=== PATIENT | female | born 1970 | race Caucasian/White ===

== ENCOUNTER → 2023-08-27 | Outpatient (CLI) | payer BC, SELFPAY ==
[2023-08-27 12:25] LABS: Absolute Lymphocyte Count 2.03 X10^3/uL (0.83-4.51); Absolute Neutrophil Count 2.4 X10^3/uL (2.0-7.7); Basophil# 0.05 X10^3/uL; Eosinophil# 0.12 X10^3/uL; Eosinophils% 2.4 % (0-5); Hemoglobin 14.1 g/dL (12.0-15.0); Lymphocyte # 2.03 X10^3/ul (0.83-4.51); Lymphocyte % 40.4 % (19-41); Mean Corp Hgb Conc 32.8 g/dL (32-36); Mean Corpuscular Hgb 29.3 pg (27.0-32.0); Mean Corpuscular Volume 89.2 fL (81-99); Monocyte# 0.41 X10^3/uL; Monocyte% 8.2 % (0-10); NRBC Flagged by Analyzer 0 % (0-5); Neutrophil % 47.8 % (47-70); Platelet Count 292 K/mm3 (150-450); RBC Distribution Width CV 12.4 % (11.6-14.6); RBC Distribution Width SD 40.5 fl (35.1-43.9); Red Blood Count 4.82 M/mm3 (4.2-5.4)
[2023-08-27 12:50] LABS: Vitamin B12 413 pg/mL (211-911); Vitamin D,25 Hydroxy 16.9 ng/mL
[2023-08-27 15:26] LABS: Hemoglobin A1c 5.5 % (3.8-5.6)
[2023-08-27 15:30] LABS: ALB/GLOB Ratio 1.1 RATIO (0.9-2.4); AST(SGOT) 25 U/L (15-37); Alanine Aminotransfer ALT/SGPT 55 U/L (13-56); Albumin, Serum 4.1 g/dL (3.2-5.0); Alkaline Phosphatase 73 U/L (45-117); Anion Gap 6 (5-15); BUN 14 mg/dL (7-18); BUN/Creat Ratio 16.5 RATIO (10-20); Calcium,Total 9.3 mg/dL (8.5-10.1); Chloride 106 mmol/L (98-107); Cholesterol 174 mg/dL (200); Creatinine, Serum 0.85 mg/dL (0.55-1.02); EST Glomerular Filtration Rate 75 mL/min (>60); Est Glom Filt Rate - Afr Amer 91 mL/min (>60); Globulin 3.7 g/dL (2.2-4.2); Glucose 103 mg/dL (74-106); High Density Lipoprotein 52 mg/dL; Protein, Total 7.8 g/dL (6.4-8.2); Sodium Level 138 mmol/L (136-145); Thyroid Stim Hormone (TSH) 2.38 uIU/mL (0.358-3.74); Triglycerides 118 mg/dL; Very Low Density Lipoprotein 24 mg/dL (5-40)
== END | disposition home or self-care (01) ==
LOC: BIMLAB 08:24
PROVIDERS: PCP Internal Medicine; Referring Provider Internal Medicine; Visit Provider Internal Medicine
DX: I44.2 Atrioventricular block, complete (principal); F32.1 Major depressive disorder, single episode, moderate; Z13.6 Encounter for screening for cardiovascular disorders; E66.9 Obesity, unspecified
CPT/HCPCS: 36415; 80053; 80061; 82306; 82607; 83036; 84443; 85025

== ENCOUNTER → 2023-09-18 | Outpatient (CLI) | payer BC, SELFPAY ==
--- NOTE | 2023-09-18 14:31 | BI_ITS ---
MAMMOGRAPHY - BILATERAL SCREENING REASON FOR EXAM: Female, 53 years old. Routine annual screening examination. PERTINENT HISTORY: Mother with breast cancer. TECHNIQUE: Digital bilateral breast naresh (3D mammographic acquisition) in the CC and MLO projections. 2-D mediolateral oblique (MLO) and craniocaudad (CC) views of both breasts were obtained. CAD: Full Field Digital Mammography with Computer Added Detection was performed. COMPARISON: Comparison is made with prior outside examination dated June 06, 2020. FINDINGS: Breast Composition: The breasts are heterogeneously dense, which may obscure small masses. There are no dominant masses or suspicious calcifications. A pacemaker battery pack is seen in the left axilla. Stable benign-appearing right axillary lymph nodes. No other significant abnormalities are identified. There has been no significant change since the prior study. BI/SCRN MAMM (CAD)W/NARESH BILAT IMPRESSION: Stable bilateral screening mammogram. Yearly follow-up mammogram recommended. (A) ASSESSMENT CATEGORY: BIRADS Category 2: Benign. A letter regarding these results will be sent to the patient by the facility within 30 days. Approximately 10% of breast cancers are not detected by mammography. A normal mammogram should not delay biopsy of a clinically suspicious abnormality. [id number] Electronically Signed: Dirk Hernandez MD at 10:44 EDT ,
== END | disposition home or self-care (01) ==
LOC: OPBI 14:30
PROVIDERS: PCP Internal Medicine; Referring Provider Internal Medicine; Visit Provider Internal Medicine
DX: Z12.31 Encounter for screening mammogram for malignant neoplasm of breast (principal); Z85.3 Personal history of malignant neoplasm of breast
CPT/HCPCS: 77063; 77067

== ENCOUNTER → 2024-02-01 | Outpatient (CLI) | payer BC, SELFPAY ==
[2024-02-01 12:50] LABS: Vitamin D,25 Hydroxy 20.9 ng/mL
[2024-02-01 13:11] LABS: Anion Gap 6 (5-15); BUN 12 mg/dL (7-18); BUN/Creat Ratio 15.5 RATIO (10-20); Calcium,Total 9.3 mg/dL (8.5-10.1); Chloride 109 mmol/L (98-107); Creatinine, Serum 0.78 mg/dL (0.55-1.02); EST Glomerular Filtration Rate 83 mL/min (>60); Est Glom Filt Rate - Afr Amer 100 mL/min (>60); Glucose 90 mg/dL (74-106); Potassium 3.6 mmol/L (3.5-5.1); Sodium Level 138 mmol/L (136-145)
== END | disposition home or self-care (01) ==
LOC: BIMLAB 08:59
PROVIDERS: PCP Internal Medicine; Visit Provider Internal Medicine
DX: E55.9 Vitamin D deficiency, unspecified (principal); E66.9 Obesity, unspecified
CPT/HCPCS: 36415; 80048; 82306

== ENCOUNTER → 2024-08-05 | Outpatient (CLI) | payer BC, SELFPAY ==
--- NOTE | 2024-08-05 12:44 | ECHOD_ITS ---
Reason For Study Reason For Study: DYSPNEA/SOB, PACERMAKER Procedure This was a 2D Doppler, Color Flow transthoracic echocardiogram. Exam performed in department. Left Ventricle Normal LV size. The left ventricular ejection fraction is 55 %. Stage 1 diastolic dysfunction. No regional wall motion abnormalities noted. Right Ventricle Normal RV size. ICD or pacer leads identified within the right ventricle. Normal systolic function. Atria Normal left atrium. Normal right atrium. Mitral Valve Normal mitral valve. Tricuspid Valve Normal tricuspid valve. Mild tricuspid valve insufficiency. Pulmonary artery systolic pressure is 20 mmHg. Pulmonic Valve Normal pulmonic valve. Great Vessels Normal aortic root. The pulmonary artery is normal size. Inferior vena cava collapse with respiration. Pericardium/Pleural No pericardial effusion. MMode/2D Measurements & Calculations LVIDd: 4.3 cm IVSd: 1.0 cm Ao root diam: 2.7 cm LVIDs: 2.7 cm LVPWd: 1.0 cm RVDd: 2.4 cm FS: 38.6 % LAV(MOD-bp): 34.9 ml LVAd ap4: 24.3 cm2 LVAd ap2: 22.2 cm2 LAV(MOD-bp) Indexed: 20.6 ml/m2 LVLd ap4: 7.4 cm LVLd ap2: 7.5 cm LAV(MOD-sp2): 34.0 ml EDV(MOD-sp4): 68.3 ml EDV(MOD-sp2): 55.5 ml LAV(MOD-sp4): 35.5 ml EDV(sp4-el): 67.9 ml EDV(sp2-el): 55.5 ml LVAs ap4: 15.3 cm2 LVAs ap2: 13.6 cm2 LVLs ap4: 6.6 cm LVLs ap2: 6.5 cm ESV(MOD-sp4): 29.6 ml ESV(MOD-sp2): 23.0 ml ESV(sp4-el): 30.1 ml ESV(sp2-el): 24.3 ml EF(MOD-sp4): 56.7 % EF(MOD-sp2): 58.6 % EF(sp4-el): 55.6 % SV(MOD-sp4): 38.8 ml SV(MOD-sp2): 32.5 ml SV(sp4-el): 37.8 ml SI(MOD-sp4): 22.9 ml/m2 SI(MOD-sp2): 19.2 ml/m2 LA A4 area: 14.3 cm2 LA dimension(2D): 3.8 cm RA A4 area: 12.5 cm2 TAPSE: 1.9 cm Time Measurements MV dec time: 0.20 sec Doppler Measurements & Calculations MV E max coleman: 63.9 cm/sec Lat Peak E' Coleman: 8.2 cm/sec Med Peak E' Coleman: 8.6 cm/sec MV A max coleman: 76.3 cm/sec E/E' lat: 7.8 E/E' med: 7.4 MV E/A: 0.84 Ao V2 max: 127.1 cm/sec LV V1 max: 92.7 cm/sec PA V2 max: 87.1 cm/sec Ao max P.5 mmHg LV V1 max P.4 mmHg PA V2 mean: 61.3 cm/sec Ao V2 mean: 86.2 cm/sec LV V1 mean P.9 mmHg Ao mean P.4 mmHg LV V1 mean: 64.9 cm/sec Ao V2 VTI: 22.4 cm LV V1 VTI: 16.4 cm AV (velocity ratio): 0.73 TR max coleman: 209.8 cm/sec TR max P.6 mmHg ECHO/Echo Complete Interpretation Summary Normal LV size. The left ventricular ejection fraction is 55 %. Stage 1 diastolic dysfunction. Ordering Physician: Margie Murillo Referring Physician: Keshia Nettles; Dimas Mcmahon Performed By: Tera, Lori, RDCS, RVT
== END | disposition home or self-care (01) ==
LOC: CVS 12:43
PROVIDERS: PCP Internal Medicine; Referring Provider Physician Assistant Medical; Visit Provider Physician Assistant Medical
DX: Z95.0 Presence of cardiac pacemaker (principal); R06.02 Shortness of breath
CPT/HCPCS: 93306

== ENCOUNTER 2024-09-12 06:11 | Day surgery (SDC) | payer BC, SELFPAY ==
--- NOTE | 2024-09-09 10:30 | PAT.ANE_ITS ---
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 When Was Last Pacemaker Check QUESTION #4 FULL TEXT: You/Your Family Experience fever (hyperthermia) with Anesthesia Last Oral Intake Last Oral intake: Last Oral Intake NPO since Meds taken in AM with sips of water? Meds patient instructed to take am of surgery PONV PONV - guide setter: PONV - guide setter Female Yes 09/09/24 09:23 HX of Motion Sickness Yes 09/09/24 09:23 HX of N/V After Surgery No 09/09/24 09:23 Non-Smoker Yes 09/09/24 09:23 Duration of Surgery greater No 09/09/24 09:23 than 60 minutes Number of Risk Factors 3 09/09/24 09:23 PONV Score Moderate Risk 09/09/24 09:23 Height & Weight Height & Weight: Anesthesia: Height & Weight Height 5 ft 2 in 08/31/24 13:02 Respiratory Assessment Respiratory Assessment - guide setter: Respiratory Tract Infection Hx - guide setter Hx Respiratory Tract Infection No 09/09/24 09:23 STOP Sleep Apnea STOP Sleep Apnea - guide setter: STOP Sleep Apnea - guide setter Hx Hypertension No 09/09/24 09:23 Hx Sleep Apnea No 09/09/24 09:23 CPAP BIPAP Do you snore loudly (louder No 09/09/24 09:23 than talking or can be heard Do you often feel tired/ No 09/09/24 09:23 fatigued/ sleepy during daytime? Has anyone observed you stop No 09/09/24 09:23 breathing during sleep? STOP Results Negative 09/09/24 09:23 QUESTION #5 FULL TEXT : Do you snore loudly (louder than talking or can be heard through closed doors)? 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 Specify any problems Hx of Preganancy in last 3 No 09/09/24 09:23 Months Nurse Filling Out Transfusion DSCHRIBER 09/09/24 09:23 & Questions: Date: 09/09/24 09/09/24 09:23 Time: 09/09/24 09:23 Patient unable to answer at this time (ie. confused, unrespo /Reproduction History /Reproductive History - guide setter: /Reproductive Hx- guide setter Hx Now No 09/09/24 09:23 Gestational Age (in weeks): EDC: Hx Hx Para Hx Section SAB No 09/09/24 09:23 PFS Medical History (Updated 09/09/24 @ 09:29 by Marcela Fraga) Wears glasses Non-smoker History of echocardiogram Cardiology follow-up encounter Anxiety Presence of permanent cardiac pacemaker SSS (sick sinus syndrome) Third degree heart block Obesity Hypothyroid Dysfunctional uterine bleeding Depression Home Medications ?Medication ?Instructions ?Recorded ?Last Taken ?Type multivitamin 1 tab PO QDAY 05/02/24 Unkno wn History paroxetine HCl 30 mg tablet 30 mg PO QHS 09/09/24 Unkn own History tirzepatide (weight loss) 7.5 7.5 mg subcut WE 5 08/31/24 History mg/0.5 mL subcutaneous pen injector Allergy/AdvReac Type Severity Reaction Status Date / Time No Known Allergies Allergy Verified 09/09/24 09:22 Family History Mother Breast cancer Hypertension Father Dementia Brother Diabetes type 1 Surgical History (Updated 09/09/24 @ 09:29 by Marcela Fraga) History of hysterectomy Social History adopted: No household members: spouse number of children: 2 current occupational status: employed 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 Electronic ventricular pacemaker. Echo (EF%) pertinent findings: August 05, 2024. EF of 55%. PASP is 20 mmHg. No aortic stenosis is noted. Consult pertinent findings: July 12, 2024. Hollie CARRILLO. 1. Third-degree heart block?acute-patient has a pacemaker since 2019. She is pacemaker dependent. No evidence of congestive heart failure and LV function is normal. No significant valvular disease. 2. Permanent cardiac pacemaker?acute-placed October 27, 2017. Patient is totally pacer dependent secondary to complete heart block. With an escape rhythm at 40 bpm. Today she is totally ventricular paced at 72 bpm. She is asymptomatic. Her [id number] score is 0. 3. There is question of infiltrative cardiomyopathy that led to her AV block. Will obtain an echo to reassess LV function. (See above) Recommendation Anesthesia Recommendation Anesthesia recommendation: OPTIMIZED for anesthesia
--- NOTE | 2024-09-09 10:30 | PAT.ANE_ITS ---
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 When Was Last Pacemaker Check QUESTION #4 FULL TEXT: You/Your Family Experience fever (hyperthermia) with Anesthesia Last Oral Intake Last Oral intake: Last Oral Intake NPO since Meds taken in AM with sips of water? Meds patient instructed to take am of surgery PONV PONV - catalytic converter operator: PONV - catalytic converter operator Female Yes 09/09/24 09:23 HX of Motion Sickness Yes 09/09/24 09:23 HX of N/V After Surgery No 09/09/24 09:23 Non-Smoker Yes 09/09/24 09:23 Duration of Surgery greater No 09/09/24 09:23 than 60 minutes Number of Risk Factors 3 09/09/24 09:23 PONV Score Moderate Risk 09/09/24 09:23 Height & Weight Height & Weight: Anesthesia: Height & Weight Height 5 ft 2 in 08/31/24 13:02 Respiratory Assessment Respiratory Assessment - catalytic converter operator: Respiratory Tract Infection Hx - catalytic converter operator Hx Respiratory Tract Infection No 09/09/24 09:23 STOP Sleep Apnea STOP Sleep Apnea - catalytic converter operator: STOP Sleep Apnea - catalytic converter operator Hx Hypertension No 09/09/24 09:23 Hx Sleep Apnea No 09/09/24 09:23 CPAP BIPAP Do you snore loudly (louder No 09/09/24 09:23 than talking or can be heard Do you often feel tired/ No 09/09/24 09:23 fatigued/ sleepy during daytime? Has anyone observed you stop No 09/09/24 09:23 breathing during sleep? STOP Results Negative 09/09/24 09:23 QUESTION #5 FULL TEXT : Do you snore loudly (louder than talking or can be heard through closed doors)? 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 Specify any problems Hx of Preganancy in last 3 No 09/09/24 09:23 Months Nurse Filling Out Transfusion DSCHRIBER 09/09/24 09:23 & Questions: Date: 09/09/24 09/09/24 09:23 Time: 09/09/24 09:23 Patient unable to answer at this time (ie. confused, unrespo /Reproduction History /Reproductive History - catalytic converter operator: /Reproductive Hx- catalytic converter operator Hx Now No 09/09/24 09:23 Gestational Age (in weeks): EDC: Hx Hx Para Hx Section SAB No 09/09/24 09:23 PFS Medical History (Updated 09/09/24 @ 09:29 by Marcela Fraga) Wears glasses Non-smoker History of echocardiogram Cardiology follow-up encounter Anxiety Presence of permanent cardiac pacemaker SSS (sick sinus syndrome) Third degree heart block Obesity Hypothyroid Dysfunctional uterine bleeding Depression Home Medications ?Medication ?Instructions ?Recorded ?Last Taken ?Type multivitamin 1 tab PO QDAY 05/02/24 Unkno wn History paroxetine HCl 30 mg tablet 30 mg PO QHS 09/09/24 Unkn own History tirzepatide (weight loss) 7.5 7.5 mg subcut WE 5 08/31/24 History mg/0.5 mL subcutaneous pen injector Allergy/AdvReac Type Severity Reaction Status Date / Time No Known Allergies Allergy Verified 09/09/24 09:22 Family History Mother Breast cancer Hypertension Father Dementia Brother Diabetes type 1 Surgical History (Updated 09/09/24 @ 09:29 by Marcela Fraga) History of hysterectomy Social History adopted: No household members: spouse number of children: 2 current occupational status: employed 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 Electronic ventricular pacemaker. Echo (EF%) pertinent findings: August 05, 2024. EF of 55%. PASP is 20 mmHg. No aortic stenosis is noted. Consult pertinent findings: July 12, 2024. Hollie CARRILLO. 1. Third-degree heart block?acute-patient has a pacemaker since 2019. She is pacemaker dependent. No evidence of congestive heart failure and LV function is normal. No significant valvular disease. 2. Permanent cardiac pacemaker?acute-placed October 27, 2017. Patient is totally pacer dependent secondary to complete heart block. With an escape rhythm at 40 bpm. Today she is totally ventricular paced at 72 bpm. She is asymptomatic. Her [id number] score is 0. 3. There is question of infiltrative cardiomyopathy that led to her AV block. Will obtain an echo to reassess LV function. (See above) Recommendation Anesthesia Recommendation Anesthesia recommendation: OPTIMIZED for anesthesia
[2024-09-12] VITALS (8 sets, daily range): BP systolic 85–101; BP diastolic 49–70; PULSE 75–95; RESP 16–20; TEMP 36.3–37.6; O2SAT 99–100; BMI 26.6
--- OUTSIDE RECORDS SUMMARY | 2024-09-12 06:14 | XMS RPT_ITS | CCD ---
Author Organization [facility] Care Team Providers Care Sap Crm Developer Name Role Phone Hemalatha Bernal Unavailable Unavai lable Tito-Bressi, Hemalatha Unavailable Unavai lable TitoObedi, Hemalatha Unavailable Unavailable Unavailable Meir, Dr. Gabriel Bell Attending Unavail able Meir, Dr. Gabriel Bell Referring Unavail able Dolores, Dr. Penny Primary Care Un available Thal, Dr. Gabriel Bell Referring Unavail able Dolores, Dr. Penny Primary Care Un available Thal, Dr. Gabriel Bell Attending Unavail able Meir, Dr. Gabriel Bell Attending Unavail able Meir, Dr. Gabriel Bell Referring Unavail able Dolores, Dr. Penny Primary Care Un available Dr. Keshia Nettles MD Primary Care Provider [phone] Dr. Keshia Nettles MD Attending Provider Dr. Keshia Nettles MD Referring Provider Dr. Doe Bah MD Attending Provider [phone] Margie Delgado Attending Provider [phone] Margie Delgado Referring Provider [phone] Dr. Keshia Nettles MD Primary Care Provider [phone] Dr. Keshia Nettles MD Referring Provider Dr. Keshia Nettles MD Attending Provider Lukas KEY, Dr. Paige Attending Provider Lagunitas, Keshia Primary Care Unavailable Olvin, [place] Attending Unavailable Tho, Keshia Primary Care Unavailable Olvin, [place] Attending Unavailable [place], Keshia Primary Care Unavailable [place], Keshia Attending Unavailable Tho, Keshia Referring Unavailable Tho, Keshia Primary Care Unavailable Olvin, [place] Attending Unavailable Olvin, [place] Attending Unavailable Tho, Keshia Primary Care Unavailable [place], Keshia Attending Unavailable [place], Keshia Primary Care Unavailable Tho, Keshia Referring Unavailable Tho, Keshia Primary Care Unavailable Olvin, [place] Attending Unavailable [place], Keshia Primary Care Unavailable [place], Keshia Referring Unavailable Margie Delgado Attending Unavail able Tho, Keshia Referring Unavailable [place], Keshia Attending Unavailable [place], Keshia Primary Care Unavailable [place], Keshia Primary Care Unavailable Olvin, Doe Attending Unavailable Tho, Keshia Referring Unavailable Tho, Keshia Primary Care Unavailable Margie Delgado Referring Unavail able Margie Delgado Attending Unavail able Grecia Gaytan Attending Unavailable Tho, Keshia Referring Unavailable [place], Keshia Primary Care Unavailable Grecia Gaytan Attending Unavailable Tho, Keshia Referring Unavailable Tho, Keshia Primary Care Unavailable Tho, Keshia Attending Unavailable [place], Keshia Primary Care Unavailable [place], Keshia Referring Unavailable [place], Keshia Attending Unavailable [place], Keshia Primary Care Unavailable [place], Keshia Attending Unavailable [place], Keshia Primary Care Unavailable [place], Keshia Referring Unavailable [place], Keshia Primary Care Unavailable Olvin, Doe Attending Unavailable [place], Keshia Referring Unavailable Kishan Smith Attending Unavailable Tho, Keshia Primary Care Unavailable Amita Schwarz Attending Unavailable Tho, Keshia Referring Unavailable [place], Keshia Primary Care Unavailable Olvin, Doe Attending Unavailable [place], Keshia Primary Care Unavailable Tho, Keshia Primary Care Unavailable Olvin, [place] Attending Unavailable Medications Current Medications Medication Drug Class(es) Dates Sig (Normalized) Sig (Original) Multivitamin tablet (4 sources) Start: 05-02-2024 Multivitamin tablet Active 1 {tbl} PO daily May 02, 2024 1:00am Tirzepatide (Weight Loss) (3 sources) Start: 08-22-2024 Tirzepatide (Weight Loss) 7.5 mg/0.5 mL pen injector Active 7.5 mg SC EVERY WEEK August 22, 2024 8:18am Completed/Discontinued Medications Medication Drug Class(es) Dates Sig (Normalized) Sig (Original) amoxicillin 500 mg oral tablet (4 sources) Penicillin-class Antibacterial Start: 10-12-2023 End: 11-06-2023 take 1 tablet by mouth three times daily Amoxicillin 500 mg tablet Discontinued 500 mg PO THREE TIMES A DAY October 12, 2023 12:00am November 06, 2023 2:01pm PARoxetine hydrochloride 30 mg oral tablet (20 sources) Serotonin Reuptake Inhibitor Start: 08-25-2023 End: 08-22-2024 take 1 tablet by mouth once daily Paroxetine Hcl 30 mg tablet Discontinued 30 mg PO DAILY March 21, 2024 10:50am August 22, 2024 8:18am Start: 04-21-2023 End: 08-25-2023 take 1 tablet by mouth once daily Paroxetine Hcl (Paxil) 20 mg tablet Discontinued 20 mg PO DAILY April 21, 2023 1:00am August 25, 2023 1:55pm Start: 07-13-2015 take 1 tablet by roldan once daily PARoxetine HCl - 20 MG Oral Tablet Take 1 tablet daily Quantity: 90 Refills: 1 Ordered: 22-Feb-2021 Hemalatha Bernal DO Start : 13-Jul-2015 Active Tirzepatide (Weight Loss) (20 sources) Start: 07-14-2024 End: 08-22-2024 Tirzepatide (Weight Loss) (Z epbound) 5 mg/0.5 mL pen injector Discontinued 5 mg SC EVERY WEEK 2 July 14, 2024 9:34am August 22, 2024 8:18am Start: 07-14-2024 Tirzepatide (W eight Loss) (Zepbound) 5 mg/0.5 mL pen injector Active 5 mg SC EVERY WEEK 2 July 14, 2024 9:34am Start: 05-24-2024 End: 07-14-2024 Tirzepatide (Weight Loss) (Z epbound) 5 mg/0.5 mL pen injector Discontinued 5 mg SC EVERY WEEK 2 May 24, 2024 11:01am July 14, 2024 9:34am Start: 03-14-2024 End: 05-24-2024 Tirzepatide (Weight Loss) (Z epbound) 5 mg/0.5 mL pen injector Discontinued 5 mg SC EVERY WEEK 2 March 14, 2024 12:01pm May 24, 2024 11:02am Start: 02-01-2024 End: 03-14-2024 Tirzepatide (Weight Loss) (Z epbound) 5 mg/0.5 mL pen injector Discontinued 5 mg SC EVERY WEEK 2 February 01, 2024 9:49am March 14, 2024 12:02pm Start: 01-17-2024 End: 02-01-2024 Tirzepatide (Weight Loss) (Z epbound) 5 mg/0.5 mL pen injector Discontinued 5 mg SC EVERY WEEK 2 January 17, 2024 9:34pm February 01, 2024 9:49am Start: 12-16-2023 End: 01-17-2024 Tirzepatide (Weight Loss) (Z epbound) 5 mg/0.5 mL pen injector Discontinued 5 mg SC EVERY WEEK 2 December 16, 2023 7:51am January 17, 2024 9:34pm Start: 11-20-2023 End: 12-16-2023 Tirzepatide (Weight Loss) 5 mg/0.5 mL pen injector Discontinued 5 mg SC EVERY WEEK 2 November 20, 2023 3:57pm December 17, 2023 12:00am December 16, 2023 7:51am Start: 10-26-2023 End: 11-20-2023 Tirzepatide (Weight Loss) 5 mg/0.5 mL pen injector Discontinued 5 mg SC EVERY WEEK 2 October 26, 2023 10:41am November 22, 2023 12:00am November 20, 2023 3:57pm Tirzepatide (Weight Loss) (4 sources) Start: 09-23-2023 End: 10-26-2023 Tirzepatide (Weight Loss) (Z epbound) 2.5 mg/0.5 mL pen injector Discontinued 2.5 mg SC EVERY WEEK 05 13September 23, 2023 12:00am October 26, 2023 10:41am Problems Active Problems Problem Classification Problem Date Documented Da te Episodic/Chronic Administrative/social admission (12 sources) Patient encounter status; Translations: [Other reasons for seeking consultation] 08-22-2024 Episodic Allergic reactions (5 sources) Urticaria; Translations: [Urticaria, unspecified] Episodic Anxiety disorders (10 sources) Anxiety; Translations: [Anxiety disorder, unspecified] Onset: 4 04-21-2023 Chronic Cardiac dysrhythmias (9 sources) Sick sinus syndrome; Translations: [Sick sinus syndrome] Onset: 5 04-21-2023 Chronic Conduction disorders (20 sources) Cardiac pacemaker in situ; Translations: [Complete atrioventricular block] Onset: 2 08-25-2023 Chronic Comment on above: 10/27/2018 this was d one at [facility]. The patient will now be monitored through the [facility] [facility]. Her battery life expectancy is 5.4 years as of today. She is totally pacer dependent with complete heart block and today showed an escape rhythm at 40 bpm. She is tracking her atrial rate and is totally ventricular paced at 72 beats per minute on today's EKG. The patient is asymptomatic. Patient has a histor y of third-degree AV block. She was evaluated the MRI and no evidence of infiltrative disease was documented back in 2019. The patient is tolerating her pacemaker without incident. She is pacer dependent due to complete AV block with an escape rhythm at 40 bpm on today's check. The patient's symptoms were near syncope when she was evaluated and found to be in complete heart block back in 2019. There is no evidence of congestive heart failure and LV function is normal with no significant valvular heart disease. There is no history of conduction system disease in the family and neither of her children have had any issues. Deficiency and other anemia (5 sources) Anemia; Translations: [Anemia, unspecified] Episodic Diabetes mellitus without complication (4 sources) Prediabetes; Translations: [Other abnormal glucose] Episodic Fracture of upper limb (4 sources) Fracture of middle phalanx of finger; Translations: [Closed fracture of middle or proximal phalanx or phalanges of hand] Episodic Genitourinary symptoms and ill-defined conditions (1 source) Endometrium thickened; Translations: [Thickened endometrium] Episodic Menopausal disorders (6 sources) Menopausal symptom; Translations: [Menopausal and female climacteric states] Onset: 4 05-02-2024 Chronic Mood disorders (15 sources) Depressive disorder; Translations: [Depressive disorder, not elsewhere classified] Onset: 4 11-06-2023 Chronic Mycoses (5 sources) Tinea corporis; Translations: [Dermatophytosis of the body] Episodic Nonspecific chest pain (1 source) Other chest pain; Translations: [Other chest pain] Onset: 5 Episodic Nutritional deficiencies (11 sources) Vitamin D deficiency; Translations: [Unspecified vitamin D deficiency] Onset: 4 05-02-2024 Chronic Other female genital disorders (10 sources) Abnormal uterine bleeding; Translations: [Other disorders of menstruation and other abnormal bleeding from female genital tract] Chronic Other gastrointestinal disorders (7 sources) Constipation; Translations: [Constipation, unspecified] 08-31-2024 Episodic Other gastrointestinal disorders (5 sources) History of bariatric surgical procedure; Translations: [Bariatric surgery status] Episodic Other gastrointestinal disorders (5 sources) Drug-induced constipation; Translations: [Drug induced constipation] 05-02-2024 Episodic Other gastrointestinal disorders (1 source) Constipation, unspecified; Translations: [Constipation, unspecified] Onset: 5 Episodic Other injuries and conditions due to external causes (4 sources) Injury of finger; Translations: [Finger injury] Episodic Other liver diseases (4 sources) Elevated liver enzymes level; Translations: [Other nonspecific abnormal serum enzyme levels] Episodic Other lower respiratory disease (5 sources) Snoring; Translations: [Other respiratory abnormalities] Episodic Other lower respiratory disease (5 sources) Dyspnea; Translations: [Shortness of breath] Episodic Other lower respiratory disease (1 source) Shortness of breath; Translations: [Shortness of breath] Onset: 5 Episodic Other nutritional; endocrine; and metabolic disorders (9 sources) Obesity; Translations: [Obesity, unspecified] 11-06-2023 Chronic Other nutritional; endocrine; and metabolic disorders (5 sources) Body mass index 30+ - obesity; Translations: [Obesity, unspecified] 05-02-2024 Chronic Other nutritional; endocrine; and metabolic disorders (1 source) Obesity, unspecified; Translations: [Obesity, unspecified] Onset: 5 Chronic Other nutritional; endocrine; and metabolic disorders (5 sources) Weight gain; Translations: [Abnormal weight gain] Episodic Other screening for suspected conditions (not mental disorders or infectious disease) (4 sources) Endometrium thickened; Translations: [Nonspecific (abnormal) findings on radiological and other examination of genitourinary organs] Chronic Other screening for suspected conditions (not mental disorders or infectious disease) (2 sources) Encounter for screening for malignant neoplasm of colon; Translations: [Encounter for screening mammogram for malignant neoplasm of breast] Onset: 4 Episodic Other upper respiratory infections (5 sources) Acute upper respiratory infection; Translations: [Acute upper respiratory infections of unspecified site] Episodic Residual codes; unclassified (4 sources) Hypersomnia; Translations: [Hypersomnia, unspecified] Chronic Residual codes; unclassified (1 source) Hypersomnia; Translations: [Excessive sleepiness] Episodic Residual codes; unclassified (1 source) Preoperative state; Translations: [Preoperative clearance] Episodic Residual codes; unclassified (2 sources) Immunization not carried out because of patient refusal; Translations: [Herpes zoster vaccination declined] 08-22-2024 Episodic Thyroid disorders (9 sources) Hypothyroidism; Translations: [Unspecified acquired hypothyroidism] 04-21-2023 Chronic Unclassified (4 sources) Encounter for screening for malignant neoplasm of colon; Translations: [Z12.11 - Encounter for screening for malignant neoplasm of colon] Past or Other Problems Problem Classification Problem Date Documented Da te Episodic/Chronic Immunizations and screening for infectious disease (2 sources) Needs influenza immunization; Translations: [Need for prophylactic vaccination and inoculation against influenza] Onset: 02-01-2024 Episodic Screening and history of mental health and substance abuse codes (15 sources) H/O: depression; Translations: [Personal history of other mental disorders] Resolved: 11-26-2017 Episodic Unclassified (3 sources) Patient encounter status; Translations: [Visit for gynecologic examination] NEGATED: Highlighted row has not occurred!Residual codes; unclassified (9 sources) Disease Episodic Results Test Name Value Interpretation Reference Range Facility MR/PATIsaiah 09-09-2024 MR/PAT.[facility] Medical Records Department [address] [place] [address] PAT - Anesthesia 09/09/24 1030 MR#: [id number] Acct: [id number] Name: MAREN JOHANSEN Rep #: [id number] : 1970 54 From: Chung Brower MD PCP: Dr. 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 When Was Last Pacemaker Check QUESTION #4 FULL TEXT: You/Your Family Experience fever (hyperthermia) with Anesthesia Last Oral Intake Last Oral intake: Last Oral Intake NPO since Meds taken in AM with sips of water? 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 Has anyone observed you stop No 09/09/24 09:23 breathing during sleep? STOP Results Negative 09/09/24 09:23 QUESTION #5 FULL TEXT : Do you snore loudly (louder than talking or can be heard through closed doors)? 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 Specify any problems Hx of Preganancy in last 3 No 09/09/24 09:23 Months Nurse Filling Out Transfusion DSCHRIBER 09/09/24 09:23 Questions: Date: 09/09/24 09/09/24 09:23 Time: 09/09/24 09:23 Patient unable to answer at this time (ie. 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: /Reproductive Hx- tinning machine set up operator Hx Now No 09/09/24 09:23 Gestational Age (in weeks): EDC: Hx Hx Para Hx Section SAB No 09/09/24 09:23 PFSH Medical History (Updated 09/09/24 @ 09:29 by Marcela Fraga) Wears glasses Non-smoker History of echocardiogram Cardiology follow-up encounter Anxiety Presence of permanent cardiac pacemaker SSS (sick sinus syndrome) Third degree heart block Obesity Hypothyroid Dysfunctional uterine bleeding Depression Home Medications ???Medication ???Instructions ???Recorded ???Last Taken ???Type multivitamin 1 tab PO QDAY 05/02/24 Unknown His tory paroxetine HCl 30 mg tablet 30 mg PO QHS 09/09/24 Unknown Hist ory tirzepatide (weight loss) 7.5 7.5 mg subcut WE 09/09/24 08/31/24 History mg/0.5 mL subcutaneous pen injector Allergy/AdvReac Type Severity Reaction Status Date / Time No Known Allergies Allergy Verified 09/09/24 09:22 Family History Mother Breast cancer Hypertension Father Dementia Brother Diabetes type 1 Surgical History (Updated 09/09/24 @ 09:29 by Marcela Fraga) History of h (more content not included)... Normal [facility] Surgery Visit Reporton 08-31 Surgery Visit Report [facility] [address] [place] [address] OFFICE VISIT Date of Service: 08/31/24 MR#: [id number] Acct: [id number] Name: MAREN JOHANSEN Rep #: [id number] : 1970 Provider: Dr. Grecia arevalo MD Age/Sex: 54/F Location: [facility] Status: Signed Intake Vital Signs 08/22/24 08:00 08/31/24 13:02 Height 5 ft 2 in 5 ft 2 in Weight: 151 lb 148 lb BMI 27.6 27.1 BP 112/70 105/74 Blood Pressure Location Lt brachial Rt brachial Position Sitting Sitting Respiration 16 17 Pulse 85 86 Pulse Source Monitor Monitor Temp 97.9 F Temp Source Temporal Pulse Oximetry (%) 97 98 Oxygen Delivery Method room air room air Intake Visit Reasons: COLONOSCOPY Chief Complaint: colonoscopy Is patient in pain?: No Allergies No Known Allergies Allergy (Unverified 08/31/24 13:02) Medications ???Medication ???Instructions ???Recorded ???Confirmed ???Type multivitamin 1 tab PO QDAY 05/02/24 08/31/24 Hi story paroxetine HCl 30 mg tablet 30 mg PO DAILY #90 tabs 08/22/24 0 08/31/24 Rx tirzepatide (weight loss) 7.5 7.5 mg (0.5 mL) subcut QWEEK #2 mL 08/22/24 08/31/24 Rx mg/0.5 mL subcutaneous pen injector [facility] Medical History Anxiety Acute diastolic CHF (congestive heart failure) Presence of permanent cardiac pacemaker SSS (sick sinus syndrome) Third degree heart block Obesity Hypothyroid Dysfunctional uterine bleeding Depression Anemia Surgical History History of permanent cardiac pacemaker placement History of hysterectomy Family History Mother Breast cancer Hypertension Father Dementia Brother Diabetes type 1 Social History adopted: No household members: spouse number of children: 2 current occupational status: employed 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 Patient states she has bowel movements maybe once a week. Patient states she has started to increase her fiber with supplement 2 capsules. Patient states her stools are hard denies any blood. Patient denies any family history of colon cancer. Patient denies any abdominal pain/nausea/vomiting/refl ux. Patient does have a permanent pacemaker in place. ROS General General: Yes weight change; No appetite, fatigue, colon cancer or breast cancer Additional Details: wt loss, is on Zepbound HEENT HEENT: No difficulty swallowing, eye injury, eye surgery, swollen glands or hoarseness Endo Endocrine: No thyroid disease, diabetes mellitus, thyroid cancer, Hair loss, heat intolerance or cold intolerance Skin Skin: No rash or changing moles Musc Musculoskeletal: No back problems, arthritis, rheumatoid arthritis, gout or joint pain Cardio Cardiovascular: Yes pacemaker; No murmur, heart disease, atrial fibrillation, high blood pressure, heart attack, heart stent, palpitations, shortness of breath with exertion or chest pain Psych Psychiatric: No depression, anxiety or hearing voices Resp Respiratory: No shortness of breath, No sleep apnea, No cough, No COPD, No asthma, No emphysema and No wheezing Gastro Gastrointestinal: No abdominal pain, No nausea or vomiting, No diarrhea, Yes constipation, No blood in stool, No acid reflux, Yes hemorrhoids, No ulcers, No gallbladder problem and No black,tarry stools Casa Hematologic: No blood thinners, No blood disorders, No bleeding, No anemia and No blood clots Neuro Neurologic: No numbness and No tingling Exam Const General: cooperative, healthy appearing, comfortable and no acute distress [facility] Head: normocephalic and atraumatic Neck Neck: supple Resp Effort Inspection: normal respiratory effort Cardio Rate: regular rate GI Inspection: non-distended Palpation: soft and nontender Skin General: no rashes or lesions noted Neuro General: CN's II-XI intact bilaterally Extrem General: normal to inspection Psych Mental Status: mental status grossly normal Attitude: cooperative Assessment and Plan Assessment and Plan (1) Constipation: (more content not included)... Normal [facility] Internal Medicine Office Vis [facility] 08-18-2024 Internal Medicine Office Visit [facility] [address] [place] [address] [place] [address] OFFICE VISIT Date of Service: 08/22/24 MR#: [id number] Acct: [id number] Name: MAREN JOHANSEN Rep #: [id number] : 1970 Provider: Dr. Keshia burrell MD Age/Sex: 54/F Location: [facility] Status: Signed Intake Vital Signs 05/02/24 07:58 07/12/24 15:04 08/22/24 08:00 Height 5 ft 2 in 5 ft 2 in 5 ft 2 in Weight: 151 lb BMI 27.6 BP 112/70 Blood Pressure Location Lt brachial Position Sitting Respiration 16 Pulse 85 Pulse Source Monitor Temp 97.9 F Temp Source Temporal Pulse Oximetry (%) 97 Oxygen Delivery Method room air Intake Visit Reasons: 3 m fu Chief Complaint: MED FU Drop Wirer Required: No Is patient in pain?: No Allergies No Known Allergies Allergy (Unverified 08/22/24 07:54) Medications ???Medication ???Instructions ???Recorded ???Confirmed ???Type multivitamin 1 tab PO QDAY 05/02/24 08/22/24 Hi story paroxetine HCl 30 mg tablet 30 mg PO DAILY #90 tabs 08/22/24 0 08/22/24 Rx tirzepatide (weight loss) 7.5 7.5 mg (0.5 mL) subcut QWEEK #2 mL 08/22/24 08/22/24 Rx mg/0.5 mL subcutaneous pen injector Nurse's Note: Needs paxil refilled. [facility] Medical History Anxiety Acute diastolic CHF (congestive heart failure) Presence of permanent cardiac pacemaker SSS (sick sinus syndrome) Third degree heart block Obesity Hypothyroid Dysfunctional uterine bleeding Depression Anemia Surgical History History of permanent cardiac pacemaker placement History of hysterectomy Family History Mother Breast cancer Hypertension Father Dementia Brother Diabetes type 1 Social History (Updated 08/22/24 @ 08:[address] 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 1. Little interest or pleasure in doing things: not at all 2. Feeling down, depressed, or hopeless: not at all 3. Trouble falling or staying asleep, or sleeping too much: not at all 4. Feeling tired or having little energy: more than half the days 5. Poor appetite or overeating: not at all 6. Feeling bad about yourself - or that you are a failure or have let yourself and your family down: not at all 7. Trouble concentrating on things, such as reading the newspaper or watching television: not at all 8. Moving or speaking so slowly that other people could have noticed? - Or the opposite - being so fidgety or restless that you have been moving around a lot more than usual: not at all 9. Thoughts that you would be better off or of hurting yourself in some way: not at all Total score: 2 If you checked off any problems, how difficult have these problems made it for you to do your work, take care of things at home, or get along with other people?: not difficult at all Source: Developed by Drs. Camilo Ecohls, Kathie Cagle, Dion Palmer and colleagues, with an educational bryan from [employer]. DWIGHT-7 BMS DWIGHT-7 Feeling nervous, anxious, or on edge: 1 = Several days Not being able to stop or control worryin = Not at all Worrying too much about different things: 0 = Not at all Trouble relaxin = Not at all Being so restless that it is hard to sit still: 0 = Not at all Becoming easily annoyed or irritable: 0 = Not at all Feeling afraid as if something awful might happen: 0 = Not at all Total DWIGHT-7 score (0-4 normal; 5-9 mild; 10-14 moderate; 15-21 severe): 1 Source: Developed by Drs. Camilo Echols, Kathie Cagle, Dion Palmer and colleagues, with an educational bryan from [employer]. HPI HPI Chief Complaint: MED FU Details: MAREN JOHANSEN, is a 54 F who presents to the office today for a follow up. She is up to date on her routine blood work and still needs to schedule her colon cancer screening. She would like a new referral. She doesn't want her shingles vaccines. She doesn't smoke and does need refills. She reports she has been doing better in terms of healthy eat (more content not included)... Normal [facility] Echocardiogram study reportO rdered By: Doe Bah on 08-06-2024 Study report [facility] Cardiovascular Services [address] [place] [address] Echo Complete 08/05/24 1257 MR#: [id number] Acct: [id number] Name: MAREN JOHANSEN Rep #:[id number] : 1970 54 From: Doe Lew Attending Dr: LANCE Ivy Status: REG CLI Ordering Dr: Margie Murilol PA Date: 08/05/24 Location: [facility] Sex: F C Admitted: Reason For Study Reason For Study: DYSPNEA/SOB, PACERMAKER Procedure This was a 2D Doppler, Color Flow transthoracic echocardiogram. Exam performed in department. Left Ventricle Normal LV size. The left ventricular ejection fraction is 55 %. Stage 1 diastolic dysfunction. No regional wall motion abnormalities noted. Right Ventricle Normal RV size. ICD or pacer leads identified within the right ventricle. Normalsystolic function. Atria Normal left atrium. Normal right atrium. Mitral Valve Normal mitral valve. Tricuspid Valve Normal tricuspid valve. Mild tricuspid valve insufficiency. Pulmonary artery systolic pressure is 20 mmHg. Pulmonic Valve Normal pulmonic valve. Great Vessels Normal aortic root. The pulmonary artery is normal size. Inferior vena cava collapse with respiration. Pericardium/Pleural No pericardial effusion. MMode/2D Measurements & Calculations LVIDd: 4.3 cm IVSd: 1.0 cm Ao root diam: 2.7 cm LVIDs: 2.7 cm LVPWd: 1.0 cm RVDd: 2.4 cm FS: 38.6 % LAV(MOD-bp): 34.9 ml LVAd ap4: 24.3 cm2 LVAd ap2: 22.2 cm2 LAV(MOD-bp) Indexed: 20.6 ml/m2 LVLd ap4: 7.4 cm LVLd ap2: 7.5 cm LAV(MOD-sp2): 34.0 ml EDV(MOD-sp4): 68.3 ml EDV(MOD-sp2): 55.5 ml LAV(MOD-sp4): 35.5 ml EDV(sp4-el): 67.9 ml EDV(sp2-el): 55.5 ml LVAs ap4: 15.3 cm2 LVAs ap2: 13.6 cm2 LVLs ap4: 6.6 cm LVLs ap2: 6.5 cm ESV(MOD-sp4): 29.6 ml ESV(MOD-sp2): 23.0 ml ESV(sp4-el): 30.1 ml ESV(sp2-el): 24.3 ml EF(MOD-sp4): 56.7 % EF(MOD-sp2): 58.6 % EF(sp4-el): 55.6 % SV(MOD-sp4): 38.8 ml SV(MOD-sp2): 32.5 ml SV(sp4-el): 37.8 ml SI(MOD-sp4): 22.9 ml/m2 SI(MOD-sp2): 19.2 ml/m2 LA A4 area: 14.3 cm2 LA dimension(2D): 3.8 cm RA A4 area: 12.5 cm2 TAPSE: 1.9 cm Time Measurements MV dec time: 0.20 sec Doppler Measurements & Calculations MV E max lindy: 63.9 cm/sec Lat Peak E' Lindy: 8.2 cm/sec Med Peak E' Lindy: 8.6 cm/sec MV A max lindy: 76.3 cm/sec E/E' lat: 7.8 E/E' med: 7.4 MV E/A: 0.84 Ao V2 max: 127.1 cm/sec LV V1 max: 92.7 cm/sec PA V2 max: 87.1 cm/sec Ao max P.5 mmHg LV V1 max P.4 mmHg PA V2 mean: 61.3 cm/sec Ao V2 mean: 86.2 cm/sec LV V1 mean P.9 mmHg Ao mean P.4 mmHg LV V1 mean: 64.9 cm/sec Ao V2 VTI: 22.4 cm LV V1 VTI: 16.4 cm AV (velocity ratio): 0.73 TR max lindy: 209.8 cm/sec TR max P.6 mmHg ECHO/Echo Complete Interpretation Summary Normal LV size. The left ventricular ejection fraction is 55 %. Stage 1 diastolic dysfunction. ___ Ordering Physician: Margie Murillo Referring Physician: Keshia Nettles; Dimas Mcmahon Performed By: Lori Haley, RDCS, RVT 08/06/24 1106 Date _ Doe Bah MD CC: Dr. Keshia Nettles MD; LANCE Ivy ~ Date Dictated: 08/05/24 1257 Date Transcribed: 08/06/241105 Oil Pipe Inspector Helper: Signed [facility] Work Phone: Echo Completeon 08-05-2024 Echo Complete [facility] Cardiovascular Services [address] [place] [id number] Echo Complete 08/05/24 1257 MR#: [id number] Acct: [id number] Name: MAREN JOHANSEN Rep #: [id number] : 1970 54 From: Doe Bah MD Attending Dr: LANCE Ivy Status: REG CLI Ordering Dr: Margie Murillo Date: 07/15 06/07 Location: [facility] Sex: F C Admitted: Reason For Study Reason For Study: DYSPNEA/SOB, PACERMAKER Procedure This was a 2D Doppler, Color Flow transthoracic echocardiogram. Exam performed in department. Left Ventricle Normal LV size. The left ventricular ejection fraction is 55 %. Stage 1 diastolic dysfunction. No regional wall motion abnormalities noted. Right Ventricle Normal RV size. ICD or pacer leads identified within the right ventricle. Normal systolic function. Atria Normal left atrium. Normal right atrium. Mitral Valve Normal mitral valve. Tricuspid Valve Normal tricuspid valve. Mild tricuspid valve insufficiency. Pulmonary artery systolic pressure is 20 mmHg. Pulmonic Valve Normal pulmonic valve. Great Vessels Normal aortic root. The pulmonary artery is normal size. Inferior vena cava collapse with respiration. Pericardium/Pleural No pericardial effusion. MMode/2D Measurements Calculations LVIDd: 4.3 cm IVSd: 1.0 cm Ao root diam: 2.7 cm LVIDs: 2.7 cm LVPWd: 1.0 cm RVDd: 2.4 cm FS: 38.6 % LAV(MOD-bp): 34.9 ml LVAd ap4: 24.3 cm2 LVAd ap2: 22.2 cm2 LAV(MOD-bp) Indexed: 20.6 ml/m2 LVLd ap4: 7.4 cm LVLd ap2: 7.5 cm LAV(MOD-sp2): 34.0 ml EDV(MOD-sp4): 68.3 ml EDV(MOD-sp2): 55.5 ml LAV(MOD-sp4): 35.5 ml EDV(sp4-el): 67.9 ml EDV(sp2-el): 55.5 ml LVAs ap4: 15.3 cm2 LVAs ap2: 13.6 cm2 LVLs ap4: 6.6 cm LVLs ap2: 6.5 cm ESV(MOD-sp4): 29.6 ml ESV(MOD-sp2): 23.0 ml ESV(sp4-el): 30.1 ml ESV(sp2-el): 24.3 ml EF(MOD-sp4): 56.7 % EF(MOD-sp2): 58.6 % EF(sp4-el): 55.6 % SV(MOD-sp4): 38.8 ml SV(MOD-sp2): 32.5 ml SV(sp4-el): 37.8 ml SI(MOD-sp4): 22.9 ml/m2 SI(MOD-sp2): 19.2 ml/m2 LA A4 area: 14.3 cm2 LA dimension(2D): 3.8 cm RA A4 area: 12.5 cm2 TAPSE: 1.9 cm Time Measurements MV dec time: 0.20 sec Doppler Measurements Calculations MV E max lindy: 63.9 cm/sec Lat Peak E' Lindy: 8.2 cm/sec Med Peak E' Lindy: 8.6 cm/sec MV A max lindy: 76.3 cm/sec E/E' lat: 7.8 E/E' med: 7.4 MV E/A: 0.84 Ao V2 max: 127.1 cm/sec LV V1 max: 92.7 cm/sec PA V2 max: 87.1 cm/sec Ao max P.5 mmHg LV V1 max P.4 mmHg PA V2 mean: 61.3 cm/sec Ao V2 mean: 86.2 cm/sec LV V1 mean P.9 mmHg Ao mean P.4 mmHg LV V1 mean: 64.9 cm/sec Ao V2 VTI: 22.4 cm LV V1 VTI: 16.4 cm AV (velocity ratio): 0.73 TR max lindy: 209.8 cm/sec TR max P.6 mmHg ECHO/Echo Complete Interpretation Summary Normal LV size. The left ventricular ejection fraction is 55 %. Stage 1 diastolic dysfunction. ___ Ordering Physician: Margie Murillo Referring Physician: Keshia Nettles; Dimas Mcmahon Performed By: Lori Haley RDCS, RVT 08/06/24 1106 Date Doe Bah MD CC: Dr. Keshia Nettles MD; LANCE Ivy Date Dictated: 08/05/24 1257 Date Transcribed: 08/06/24 1106 Oil Pipe Inspector Helper: Signed Normal [facility] 12 Lead EKG performed by [facility] on 07-12-2024 12 Lead EKG performed by [facility] [address] [place] [address] 12 Lead EKG performed by [facility] 07/12/24 1506 MR#: [id number] Acct: [id number] Name: MAREN JOHANSEN Rep #: [id number] : 1970 54 From: Margie Mas Attending Dr: LANCE Ivy Status: DEP AMB Ordering Dr: Margie Murillo Date: 06/15 12/08 Location: [facility] Sex: F C Admitted: [facility]/12 Lead EKG performed by [facility] ECG Report Interpretation -Electronic ventricular pacemaker Pacemaker ECG, No further analysis INSUFFICIENT DATAElectronically signed on 07/14/2024 at 07:[address] Dimas Rodriguez Software Version 8610 07/14/24 0753 Date Margie LUCAS CC: Dr. Keshia Nettles MD Date Dictated: 07/12/24 1506 Date Transcribed: 07/12/24 1506 Oil Pipe Inspector Helper: MMM Signed Normal [facility] Cardiology Visit Reporton Cardiology Visit Report [facility] [address] [place] [address] OFFICE VISIT Date of Service: 07/12/24 MR#: [id number] Acct: [id number] Name: MAREN JOHANSEN Rep #: [id number] : 1970 Provider: LANCE Oconnor Age/Sex: 54/F Location: [facility] Status: Signed HPI HPI History of Present Illness Details: Maren Johansen is a 54-year-old white female with a history of diastolic dysfunction remotely diagnosed in 2018. Her EF is known to be in the 65 to 70% range. There was some question of her having an infiltrative cardiomyopathy as she had complete AV block with AV node dysfunction. She is status post DDD pacemaker at [facility] October 23, 2018 and a cardiac MRI showed no evidence of delayed enhancement there is no significant valvular disease her right ventricular function was normal with an EF of 71% the left-ventricular function was normal with an EF of 72% and no regional wall motion abnormality. From a cardiac standpoint, patient is doing well. She does not have any chest discomfort/heaviness/tigh tness. Her exercise tolerance is stable for her age. She does not have any worsening symptoms of shortness of breath. She does not have any orthopnea. She denies PND. She does not have any symptoms of congestive heart failure. She does not have any palpitations that she is aware of. She does not have any lightheadedness or dizziness. She does not have any near- syncope or syncope. She does not have any lower extremity edema. She does not have any symptoms of claudication. EKG today did not demonstrate ventricularly paced rhythm with a heart rate of 77. Intake Vital Signs 02/01/24 08:25 05/02/24 07:58 07/12/24 15:04 Height 5 ft 2 in 5 ft 2 in 5 ft 2 in Weight: 159 lb 158 lb BMI 29.0 28.9 BP 102/78 109/76 Blood Pressure Location Lt brachial Lt brachial Position Sitting Sitting Respiration 14 14 Pulse 83 87 Pulse Source Monitor Monitor Temp 97.6 F L Pulse Oximetry (%) 98 96 Oxygen Delivery Method room air room air Intake Visit Reasons: 1 Y FU/WILSON @ 3pm Drop Wirer Required: No Accompanied by: Self Is patient in pain?: No Allergies No Known Allergies Allergy (Unverified 07/12/24 15:02) Medications ???Medication ???Instructions ???Recorded ???Confirmed ???Type paroxetine HCl 30 mg tablet 30 mg PO DAILY #90 tabs 03/21/24 0 07/12/24 Rx multivitamin 1 tab PO QDAY 05/02/24 07/12/24 Hi story tirzepatide (weight loss) 5 mg/0.5 5 mg (0.5 mL) subcut QWEEK #2 mL 05/24/24 07/12/24 Rx mL subcutaneous pen injector (Zepbound) Ejection fraction %: 65 PFSH Medical History Anxiety Acute diastolic CHF (congestive heart failure) Presence of permanent cardiac pacemaker SSS (sick sinus syndrome) Third degree heart block Obesity Hypothyroid Dysfunctional uterine bleeding Depression Anemia Surgical History History of permanent cardiac pacemaker placement History of hysterectomy Family History Mother Breast cancer Hypertension Father Dementia Brother Diabetes type 1 Social History adopted: No household members: spouse number of children: 2 current occupational status: employed 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 pets and animals: Yes (2) pets and animals: dog(s) sexually active: Yes Smoking Status: Never smoker Electronic Cigarette Use: not used alcohol intake: current alcohol intake frequency: holidays/special occasions only substance use type: does not use caffeine: Yes (2) Type: coffee Number of servings: 2 what type of physical activity do you participate in: walking frequency: 3-4 times per week seatbelt use: always do you feel safe at home: Yes ROS Const Const: Positive for fatigue; Negative for weakness or headache(s) Eyes Eyes: Negative for blurry vision ENT ENT: Negative for headache(s) or dizziness Cardio Chest Pain: Yes Frequency: weekly Character: dull and other (heaviness- not with exercise) Onset: with meals Location: epigastric Duration: brief Palpitations: No Edema: None Muscle aches with walking: None Resp Respiratory: Negative for SOB with activity, SOB at rest, SOB orthopnea SOB lying down or paroxysmal nocturnal dyspnea GI GI: Negative nausea, vomiting, heartburn, vomiting blood/hematemesis, bright, red blood in stools or black,tarry stools : Negative for hematuria or frequent nighttime urination/ nocturia Musc Musc: Negative for muscle aches/ myalgia or muscle weakness Neuro Neuro: Negative for dizziness, lightheadedness, near syncope, (more content not included)... Normal [facility] Pacemaker Checkon 07-12-2024 Pacemaker Check [facility] [address] [place] [address] Pacemaker Check Date of Service: 07/12/241704 MR#: [id number] Acct: [id number] Name: MAREN JOHANSEN Rep #: [id number] : 1970 From: April Brown Age/Sex: 54/F Location: [facility] Status: Signed Billing Codes PM Device Codes: 16858 PM Dev Prog Eval, Dual Assessment and Plan Assessment and Plan (1) Presence of permanent cardiac pacemaker: Status: Acute Comment: 10/27/[address] done at [facility]. The patient will now be monitored through the [place] [facility]. Her battery life expectancy is 5.4 years as of today. She is totally pacer dependent with complete heart block and today showed an escape rhythm at 40 bpm. She is tracking her atrial rate and is totally ventricular paced at 72 beats per minute on today's EKG. The patient is asymptomatic. (2) SSS (sick sinus syndrome): Status: Acute (3) Third degree heart block: Status: Acute Comment: Patient has a history of third-degree AV block. She was evaluated the MRI and no evidence of infiltrative disease was documented back in 2019. The patient is tolerating her pacemaker without incident. She is pacer dependent due to complete AV block with an escape rhythm at 40 bpm on today's check. The patient's symptoms were near syncope when she was evaluated and found to be in complete heart block back in 2019. There is no evidence of congestive heart failure and LV function is normal with no significant valvular heart disease. There is no history of conduction system disease in the family and neither of her children have had any issues. 07/12/241706 Date April Nevarezignfer Signature: Date (if applicable) CC: Normal [facility] Internal Medicine Office Vis alangel 04-28-2024 Internal Medicine Office Visit [facility] [address] [place] [address] [place] [address] OFFICE VISIT Date of Service: 05/02/24 MR#: [id number] Acct: [id number] Name: MAREN JOHANSEN Rep #: [id number] : 1970 Provider: Dr. Keshia burrell MD Age/Sex: 53/F Location: [facility] Status: Signed Intake Vital Signs 02/01/24 08:25 05/02/24 07:58 Height 5 ft 2 in 5 ft 2 in Weight: 159 lb BMI 29.0 BP 102/78 Blood Pressure Location Lt brachial Position Sitting Respiration 14 Pulse 83 Pulse Source Monitor Temp 97.6 F L Temp Source Temporal Pulse Oximetry (%) 98 Oxygen Delivery Method room air Intake Visit Reasons: 3 M FU Drop Wirer Required: No Accompanied by: Self Is patient in pain?: No Allergies No Known Allergies Allergy (Unverified 05/02/24 07:57) Medications ???Medication ???Instructions ???Recorded ???Confirmed ???Type tirzepatide (weight loss) 5 mg/0.5 5 mg (0.5 mL) subcut QWEEK #2 mL 03/14/24 05/02/24 Rx mL subcutaneous pen injector (Zepbound) paroxetine HCl 30 mg tablet 30 mg PO DAILY #90 tabs 03/21/24 0 05/02/24 Rx multivitamin 1 tab PO QDAY 05/02/24 05/02/24 Hi story PFSH Medical History Anxiety Acute diastolic CHF (congestive heart failure) Presence of permanent cardiac pacemaker SSS (sick sinus syndrome) Third degree heart block Obesity Hypothyroid Dysfunctional uterine bleeding Depression Anemia Surgical History History of permanent cardiac pacemaker placement History of hysterectomy Family History Mother Breast cancer Hypertension Father Dementia Brother Diabetes type 1 Social History adopted: No household members: spouse number of children: 2 current occupational status: employed 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 She is up to date on her routine blood work and still needs to schedule her colon cancer screening and states she still plans on doing it. She isn't due for any immunizations. She doesn't smoke and does need refills. She reports she has been doing better in terms of healthy eating. She is walking often. The patient has a history of complete heart block and has a pacemaker in place. She reports it was placed in 2019. She was having dizziness, lightheadedness and shortness of breath prior to her heart block being diagnosed. She follows with cardiology. She reports that she hasn't had any ongoing issues since her pacemaker was placed. The patient reports her mental health has been doing good. She continues to do well on the paxil and denies any current concerns. She denies any thoughts of suicide. She reports she is still doing well on the zepbound. She reports she missed 2 doses since she was last seen, due to waiting for the prior authorization. She has been monitoring her diet closely, although states it was difficult during the holidays. She reports she has been using a standing desk with an office treadmill and states she has been trying to stay more active. She states her motivation to do more has been better as well. She states she has noticed that her cravings have not been as well controlled as previously, but thinks that may be to due to missing those doses. She states she has been having some constipation and wonders what can be done about that. She drinks 80-120oz of water per day. She reports she has tried some stool softeners, colace, but is trying to limit how much she takes it. She states it does help, however. She has no other questions or concerns at this time. ROS Const Constitutional: Positive for weight change (6 pound weight loss); No body ache, chills, excessive sweating, fatigue, fever(s), frequent falls, headache(s), snoring, weakness or change in appetite Eyes Eyes: Positive for change in vision; No blurry vision, eye pain or Light sensitivity ENT ENT: No abnormal hearing, ear or mastoid pain, tinnitus, nasal congestion, headache(s), neck pain or sore throat Resp Respiratory: No cough, shortness of breath, snoring or wheezing Cardio Cardiology: No chest pain at (more content not included)... Normal [facility] Basic Metabolic Profile (BMP )on 02-01-2024 BUN/CRE 15.5 RATIO Normal 10-20 [facility] Comment on above: Performed By: #### L 506.1000, L500.2500 #### [facility] [address] [place] [address] [place],Total 9.3 mg/dL Normal 8.5-10.1 [facility] Comment on above: Performed By: #### L 506.1000, L500.2500 #### [facility] [address] [facility] [address] Chloride [Moles/Vol] 109 mmol/L High 98-107 [facility] Comment on above: Performed By: #### L 506.1000, L500.2500 #### [facility] [address] [facility] [address] CO2 [Moles/Vol] 23.0 mmol/L Normal 21.0-32.0 [facility] Comment on above: Performed By: #### L 506.1000, L500.2500 #### [facility] [address] [place], [address] Creatinine [Mass/Vol] 0.78 mg/dL Normal 0.55-1.02 [facility] Comment on above: Result Comment: The validity of the calculated GFR GFRAA in patients over 70 years has not been determined. Clinical correlation is essential. Performed By: #### L 506.1000, L500.2500 #### [facility] [address] [place], [address] EST GFR - AA 100 mL/min Normal >60 [facility] Comment on above: Result Comment: Afri can Belgian GFR Calc Performed By: #### L 506.1000, L500.2500 #### [facility] [address] [place], [address] GAP 6 Normal 5-15 [facility] Comment on above: Performed By: #### L 506.1000, L500.2500 #### [facility] [address] [place], [address] GFR/1.73 sq M.predicted among non-blacks MDRD (S/P/Bld) [Vol rate/Area] 83 mL/min/{1.73_m2} Normal >60 [facility] Comment on above: Result Comment: Non- GFR Calc Performed By: #### L 506.1000, L500.2500 #### [facility] [address] [place], [address] Glucose [Mass/Vol] 90 mg/dL Normal 74-106 [facility] Comment on above: Performed By: #### L 506.1000, L500.2500 #### [facility] [address] [place], [address] Potassium [Moles/Vol] 3.6 mmol/L Normal 3.5-5.1 [facility] Comment on above: Performed By: #### L 506.1000, L500.2500 #### [facility] [address] [place], [address] Sodium [Moles/Vol] 138 mmol/L Normal 136-145 [facility] Comment on above: Performed By: #### L 506.1000, L500.2500 #### [facility] [address] [place], [place], [id number] Urea nitrogen [Mass/Vol] 12 mg/dL Normal 7-18 [facility] Comment on above: Performed By: #### L 506.1000, L500.2500 #### [facility] [address] [place], [place], [address] Vitamin D,25 Hydroxyon 01-31 Vitamin D 25-OH 20.9 ng/mL Normal [facility] Comment on above: Result Comment: Vera min D 25(OH) Status Range Deficiency <20 ng/mL (50nmol/L) Insufficiency 20 - 30 ng/mL (50 - 75 nmol/L) Sufficiency 30 - 100 ng/mL (75 - 250 nmol/L) Toxicity >100 ng/mL (>250 nmol/L) Performed By: #### L 506.1000, L500.2500 #### [facility] [address] [place], [place], [address] Internal Medicine Office Vis servando 01-27-2024 Internal Medicine Office Visit [facility] [address] [place], [place] [address] OFFICE VISIT Date of Service: 02/01/24 MR#: [id number] Acct: [id number] Name: CALEBDARIOMINGOMAREN Elizabeth Rep #: [id number] : 1970 Provider: Dr. Keshia burrell MD Age/Sex: 53/F Location: [facility]HEL[facility] Status: Signed Intake Vital Signs 11/06/23 13:53 02/01/24 08:25 Height 5 ft 2 in 5 ft 2 in Weight: 165 lb BMI 30.2 BP 120/78 Blood Pressure Location Lt brachial Position Sitting Respiration 16 Pulse 82 Pulse Source Monitor Temp 97.7 F L Temp Source Temporal Pulse Oximetry (%) 96 Oxygen Delivery Method room air Intake Visit Reasons: 3 M FU Chief Complaint: MED FU Drop Wirer Required: No Accompanied by: Self Is patient in pain?: No Allergies No Known Allergies Allergy (Unverified 02/01/24 08:21) Medications ???Medication ???Instructions ???Recorded ???Confirmed ???Type paroxetine HCl 30 mg tablet 30 mg PO DAILY #90 tabs 12/21/23 02/01/24 Rx tirzepatide (weight loss) 5 mg/0.5 5 mg (0.5 mL) subcut QWEEK #2 mL 02/01/24 02/01/24 Rx mL subcutaneous pen injector (Zepbound) [facility] Medical History Anxiety Acute diastolic CHF (congestive heart failure) Presence of permanent cardiac pacemaker SSS (sick sinus syndrome) Third degree heart block Obesity Hypothyroid Dysfunctional uterine bleeding Depression Anemia Surgical History History of permanent cardiac pacemaker placement History of hysterectomy Family History Mother Breast cancer Hypertension Father Dementia Brother Diabetes type 1 Social History adopted: No household members: spouse number of children: 2 current occupational status: employed 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 She is up to date on her routine blood work and still needs to schedule her colon cancer screening. She does want a flu shot today. She doesn't smoke and does need refills. She reports she has been doing better in terms of healthy eating. She is walking often. The patient has a history of complete heart block and has a pacemaker in place. She reports it was placed in 2019. She was having dizziness, lightheadedness and shortness of breath prior to her heart block being diagnosed. She follows with cardiology. She reports that she hasn't had any ongoing issues since her pacemaker was placed. The patient reports her mental health has been doing good. She continues to do well on the paxil and denies any current concerns. She denies any thoughts of suicide. She reports she is doing well on the zepbound. She has been monitoring her diet closely. She feels that she has been doing alright. She has been on the 0.5mg for about 4 months and feels that she has slowed down in terms of weight loss. She questions whether she may need a higher dose. She has no other questions or concerns at this time. ROS Const Constitutional: Positive for headache(s) (sinus) and weight change (17 pound weight loss); No body ache, chills, excessive sweating, fatigue, fever(s), frequent falls, snoring, weakness or change in appetite Eyes Eyes: Positive for change in vision; No blurry vision, eye pain or Light sensitivity ENT ENT: Positive for headache(s) (sinus); No abnormal hearing, ear or mastoid pain, tinnitus, nasal congestion, neck pain or sore throat Resp Respiratory: No cough, shortness of breath, snoring or wheezing Cardio Cardiology: No chest pain at rest, chest pain with exertion, excessive sweating, dyspnea on exertion, lightheadedness, orthopnea, palpitations or other (no leg swelling) Gastro GI: Positive for constipation; No abdominal pain, change in bowel habits, cramping, diarrhea, nausea/dyspepsia or vomiting Genitourinary-Female: No difficulty urinating, burning urination, painful urination, urinary incontinence or urinary frequency Musc Musculoskeletal: No abnormal gait, joint pain, back pain, limited range of motion, muscle weakness, neck pain, numbness or tingling Skin Skin: No dry skin, redness, (more content not included)... Normal [facility] Internal Medicine Office Vis servando 11-06-2023 Internal Medicine Office Visit [facility] [place] [address] [place] [address] OFFICE VISIT Date of Service: 11/06/23 MR#: [id number] Acct: [id number] Name: MAREN JOHANSEN Rep #: [id number] : 1970 Provider: GIOVANNA lester Age/Sex: 53/F Location: [facility] Status: Signed Intake Vital Signs 10/12/23 09:13 11/06/23 13:53 Height 5 ft 2 in 5 ft 2 in Weight: 189 lb 6 oz 182 lb BMI 34.6 33.3 BP 146/96 H 114/66 Blood Pressure Location Lt brachial Lt brachial Position Sitting Sitting Respiration 16 17 Pulse 135 H 96 Pulse Source Monitor Monitor Temp 99.8 F H 96.9 F L Temp Source Temporal Temporal Pulse Oximetry (%) 96 98 Oxygen Delivery Method room air room air Intake Visit Reasons: MED FU Chief Complaint: MED FU Is patient in pain?: No Allergies No Known Allergies Allergy (Unverified 11/06/23 13:55) Medications ???Medication ???Instructions ???Recorded ???Confirmed ???Type paroxetine HCl 30 mg tablet 30 mg PO DAILY #90 tabs 09/21/23 11/06/23 Rx tirzepatide (weight loss) 5 mg/0.5 5 mg (0.5 mL) subcut QWEEK 4 weeks 10/26/23 11/06/23 Rx mL subcutaneous pen injector #2 mL Have you fallen in the past year?: No PFSH Medical History Anxiety Acute diastolic CHF (congestive heart failure) Presence of permanent cardiac pacemaker SSS (sick sinus syndrome) Third degree heart block Obesity Hypothyroid Dysfunctional uterine bleeding Depression Anemia Surgical History History of permanent cardiac pacemaker placement History of hysterectomy Family History Mother Breast cancer Hypertension Father Dementia Brother Diabetes type 1 Social History adopted: No household members: spouse number of children: 2 current occupational status: employed 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 and animals: Yes (2) pets and animals: dog(s) sexually active: Yes Smoking Status: Never smoker Electronic Cigarette Use: not used alcohol intake: current alcohol intake frequency: holidays/special occasions only substance use type: does not use caffeine: Yes (2) Type: coffee Number of servings: 2 what type of physical activity do you participate in: walking frequency: 3-4 times per week seatbelt use: always do you feel safe at home: Yes HPI HPI Chief Complaint: MED FU Details: MAREN JOHANSEN, is a 53 F who presents to the office today for Patient's weight has decreased froman acute visit for weight management/follow-up. She is a patient of Dr. Gonzalez and was last seen in office on 09/23/2023. At that visit she was initiated on trans appetite. She completed a 4-week course of 2.5 mg after his appetite and insurance required patient to increase dose on 4-week interval for coverage, she has had 2 doses of 5 mg after his appetite. She reports she is tolerating medication well without adverse effects. She performs her injections on Wednesdays and has currently been administering in her right thigh. She reports medication definitely decreases her appetite and at times she does not want to eat. She has been trying to prioritize protein. She states that she is walking to and from work and walking throughout her workday for exercise. Additionally at last visit, patient noted that she felt weepy and would benefit from an increased dose of Paxil. She states since increasing her dose her symptoms have improved significantly and she no longer has agitation and is more control of her emotions. She has not noticed any side effects with increase in dose. She denies any thoughts of suicide. Remaining medical conditions stable. ROS Const Constitutional: No body ache, chills, excessive sweating, fatigue, fever(s), frequent falls, headache(s), snoring, weight change, sleep problems, abnormal sleep pattern or change in appetite Eyes Eyes: No blurry vision, change in vision, eye pain or Light sensitivity ENT ENT: No abnormal hearing, ear or mastoid pain, tinnitus, nasal congestion, headache(s), neck pain or sore throat Resp Respiratory: No cough, shortness of breath, snoring or wheezing Cardio Cardiology: No chest pain at rest, chest pain with exertion, excessive sweating, shortness of breath, dyspnea on exertion, lightheadedness, orthopnea or palpitations Gastro GI: No abdominal pain, change in bowel habits, constipation, cramping, diarrhea, nausea/dyspepsia or vomiting Genitourinary-Female: No burning urination, painful urination, urinary incontinence, urinary frequency, abnormal vaginal bleeding or pelvic pain Musc Musculoskeletal: No abnormal gait, joint pain, back (more content not included)... Normal [facility] Urgent Care Visit Reporton 0 10-12-2023 Urgent Care Visit Report [facility] [address], [address] [place] [address] OFFICE VISIT Date of Service: 10/12/23 MR#: [id number] Acct: [id number] Name: MAREN JOHANSEN Rep #: [id number] : 1970 Provider: LANCE Esquivel Age/Sex: 53/F Location: [facility] Status: Signed Intake Vital Signs 09/23/23 07:57 10/12/23 09:13 Height 5 ft 2 in 5 ft 2 in Weight: 196 lb 189 lb 6 oz BMI 35.8 34.6 BP 122/80 H 146/96 H Blood Pressure Location Lt brachial Lt brachial Position Sitting Sitting Respiration 18 16 Pulse 73 135 H Pulse Source Monitor Monitor Temp 97.2 F L 99.8 F H Temp Source Temporal Temporal Pulse Oximetry (%) 97 96 Oxygen Delivery Method room air room air Intake Visit Reasons: ST/CURRY/SINUS DRAINAGE Chief Complaint: st curry sinus drainage Drop Wirer Required: No Accompanied by: Self Is patient in pain?: No Allergies No Known Allergies Allergy (Unverified 10/12/23 09:14) Medications ???Medication ???Instructions ???Recorded ???Confirmed ???Type paroxetine HCl 30 mg tablet 30 mg PO DAILY #90 tabs 09/21/23 10/12/23 Rx tirzepatide (weight loss) 2.5 2.5 mg (0.5 mL) subcut QWEEK 4 09/23/23 10/12/23 Rx mg/0.5 mL subcutaneous pen weeks #2 mL injector (Zepbound) amoxicillin 500 mg tablet 500 mg PO TID #30 tabs 10/12/23 10/12/23 Rx PFSH Medical History Anxiety Acute diastolic CHF (congestive heart failure) Presence of permanent cardiac pacemaker SSS (sick sinus syndrome) Third degree heart block Obesity Hypothyroid Dysfunctional uterine bleeding Depression Anemia Surgical History History of permanent cardiac pacemaker placement History of hysterectomy Family History Mother Breast cancer Hypertension Father Dementia Brother Diabetes type 1 Social History adopted: No household members: spouse number of children: 2 current occupational status: employed 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 and 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: Yes (2) pets and animals: dog(s) sexually active: Yes Smoking Status: Never smoker Electronic Cigarette Use: not used alcohol intake: current alcohol intake frequency: holidays/special occasions only substance use type: does not use caffeine: Yes (2) Type: coffee Number of servings: 2 what type of physical activity do you participate in: walking frequency: 3-4 times per week seatbelt use: always do you feel safe at home: Yes HPI HPI Chief Complaint: st curry sinus drainage Details: MAREN BRANTLEYLAVERNEMADHAVI, is a 53 F who presents to the office today for [facility] evaluation at the [facility] for approximately 5-7 day history of progressively worsening facial pressure/congestion with purulent postnasal drip/cough, bilateral ear pressure, and new fever/ chills over last 24-48 hours. No complaints of myalgias, fatigue, runny nose, or nausea/vomiting/diarrhea. No complaints of chest pain/shortness of breath/dyspnea on exertion. No close contacts with similar complaints. Non- smoker. No other associated symptoms and no other alleviating/aggravating factors. ROS Const Constitutional: No other (as above) Exam Const General: cooperative, healthy appearing and no acute distress Nutritional Appearance: average body habitus Orientation: alert, awake and oriented x3 HENMT Head: normal to inspection Ears: hearing grossly normal bilaterally, external ears normal, TM's normal bilaterally and EAC's normal Nose: external nose normal, nares normal, septum normal and no nasal discharge Face and sinus: normal facial exam, bilateral maxillary sinuses palpable tender (with bilateral maxillary fullness to palpation) and face symmetric Mouth: oral mucosae normal, lip normal, tongue normal and oropharynx normal Throat: posterior oropharynx normal, tonsils normal, uvula midline and postnasal drainage (Purulent) Eyes General: appearance normal, both eyes and all related structures Neck Neck: normal visual inspection, full ROM, no meningeal signs, supple and lymphadenopathy (Bilateral anterior cervical lymph node swelling/tender to palpation) Neck mass: No Thyroid: thyroid normal Chest Chest palpation inspection: normal inspection of the chest Resp Effort Inspection: normal respiratory effort and able to speak in complete sentences Auscultation: Bilateral: Clear to Auscultation Cardio Palpation: normal PMI Rate: regular rate Rhythm: regular rhythm Heart Sounds: S1 normal, S2 normal, no gallops, no murmurs and no rubs Pulses: radial pulses present GI Inspection: normal to inspection Skin General: no rashes or lesions n (more content not included)... Normal [facility] Internal Medicine Office Vis ito 09-22-2023 Internal Medicine Office Visit [facility] [address] [place] [address] [place] [address] OFFICE VISIT Date of Service: 09/23/23 MR#: [id number] Acct: [id number] Name: MAREN JOHNASEN Rep #: [id number] : 1970 Provider: Dr. Keshia burrell MD Age/Sex: 53/F Location: [facility] Status: Signed Intake Vital Signs 08/25/23 13:05 09/23/23 07:57 Height 5 ft 2 in 5 ft 2 in Weight: 196 lb BMI 35.8 BP 122/80 H Blood Pressure Location Lt brachial Position Sitting Respiration 18 Pulse 73 Pulse Source Monitor Temp 97.2 F L Temp Source Temporal Pulse Oximetry (%) 97 Oxygen Delivery Method room air Intake Visit Reasons: f/u Chief Complaint: f/u Drop Wirer Required: No Accompanied by: Self Is patient in pain?: No Allergies No Known Allergies Allergy (Unverified 09/23/23 07:54) Medications ???Medication ???Instructions ???Recorded ???Confirmed ???Type paroxetine HCl 30 mg tablet 30 mg PO DAILY #90 tabs 09/21/23 09/23/23 Rx tirzepatide (weight loss) 2.5 2.5 mg (0.5 mL) subcut QWEEK 4 09/23/23 09/23/23 Rx mg/0.5 mL subcutaneous pen weeks #2 mL injector (Zepbound) [facility] Medical History Anxiety Acute diastolic CHF (congestive heart failure) Presence of permanent cardiac pacemaker SSS (sick sinus syndrome) Third degree heart block Obesity Hypothyroid Dysfunctional uterine bleeding Depression Anemia Surgical History History of permanent cardiac pacemaker placement History of hysterectomy Family History Mother Breast cancer Hypertension Father Dementia Brother Diabetes type 1 Social History adopted: No household members: spouse number of children: 2 current occupational status: employed 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 She is up to date on her routine blood work and still needs to schedule her colon cancer screening. She previously declined any immunizations. She doesn't smoke and does not need refills. She reports she is eating healthy and reports she has tried incorporating more of the Mediterranean diet and increasing her walking. The patient has a history of complete heart block and has a pacemaker in place. She reports it was placed in 2019. She was having dizziness, lightheadedness and shortness of breath prior to her heart block being diagnosed. She follows with cardiology. She reports that she hasn't had any ongoing issues since her pacemaker was placed. At her last office visit, she felt that her anxiety and depression were worsening noting increased agitation and fatigue. She also noted hot flashes and wasn't sure if that was related to pre menopause. Her paxil dose was increased. She reports that she went out of town for a work trip, so she only started the higher dose a couple of weeks ago. She states she does feel calmer and less agitated. She does think she is a little more weepy, however. She denies any thoughts of suicide. At her last office visit, she also complained about her weight. Diet and exercise were discussed. As above, she reports that she has been doing better in terms of her diet and exercise, but hasn't noticed any progress with weight loss. She remained interested in trying something to help with weight loss. She has a colleague who is on zepbound which is covered by their insurance. She has no other questions or concerns at this time. ROS Const Constitutional: No body ache, chills, excessive sweating, fatigue, fever(s), frequent falls, headache(s), snoring, weakness, weight change or change in appetite Eyes Eyes: No blurry vision, change in vision, eye pain or Light sensitivity ENT ENT: No abnormal hearing, ear or mastoid pain, tinnitus, nasal congestion, headache(s), neck pain or sore throat Resp Respiratory: No cough, shortness of breath, snoring or wheezing Cardio Cardiology: No chest pain at rest, chest pain with exertion, excessive sweating, dyspnea on exertion, lightheadedness, orthopnea, palpitations or other (no leg swelling) Gastro GI: Positive for constipation (fibe (more content not included)... Normal [facility] SCRN MAMM (CAD)W/NARESH BILATo n 09-18-2023 SCRN MAMM (CAD)W/NARESH BILAT [facility] Imaging Services [address] [place] [address] SCRN MAMM (CAD)W/NARESH PITTS MR#: [id number] Acct: [id number] Name: MAREN JOHANSEN Rep #: [id number] : 1970 F 53 From: Dirk suh MD PCP: Dr. Keshia Nettles MD Status: REG CLI Study: SCRN MAMM (CAD)W/NARESH BILAT Date of Exam: 08/06 Exam# [id number] Ordering Dr: Keshia Nettles MD [id number] MAMMOGRAPHY - BILATERAL SCREENING REASON FOR EXAM: Female, 53 years old. Routine annual screening examination. PERTINENT HISTORY: Mother with breast cancer. TECHNIQUE: Digital bilateral breast naresh (3D mammographic acquisition) in the CC and MLO projections. 2-D mediolateral oblique (MLO) and craniocaudad (CC) views of both breasts were obtained. CAD: Full Field Digital Mammography with Computer Added Detection was performed. COMPARISON: Comparison is made with prior outside examination dated June 06, 2020. FINDINGS: Breast Composition: The breasts are heterogeneously dense, which may obscure small masses. There are no dominant masses or suspicious calcifications. A pacemaker battery pack is seen in the left axilla. Stable benign-appearing right axillary lymph nodes. No other significant abnormalities are identified. There has been no significant change since the prior study. BI/SCRN MAMM (CAD)W/NARESH BILAT IMPRESSION: Stable bilateral screening mammogram. Yearly follow-up mammogram recommended. (A) ASSESSMENT CATEGORY: BIRADS Category 2: Benign. A letter regarding these results will be sent to the patient by the facility within 30 days. Approximately 10% of breast cancers are not detected by mammography. A normal mammogram should not delay biopsy of a clinically suspicious abnormality. [id number] Electronically Signed: Dirk Hernandez MD at 10:44 EDT , CC: Dr. 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: Signed Normal [facility] Office Visit (Family Iain antony)on 02-22-2021 Follow-up visit Diagnoses/Problems Need for influenza vaccination (V04.81) (Z23) Depression (311) (F32.A) Elevated liver enzymes (790.5) (R74.8) Prediabetes (790.29) (R73.03) Vitamin D deficiency (268.9) (E55.9) Weight gain (783.1) (R63.5) Orders Depression Renew: PARoxetine HCl - 20 MG Oral Tablet; Take 1 tablet daily Need for influenza vaccination Administered: Fluarix Quadrivalent 0.5 ML Intramuscular Suspension Prefilled Syringe Patient Discussion/Summary By signing my name below, I, Edgar Webb, attest that this documentation has been prepared under the direction and in the presence of Dr. Hemalatha López. All medical record entries made by the Scribe were at my direction and personally dictated by me. I have reviewed the chart and agree that the record accurately reflects my personal performance of the history, physical exam, discussion and plan. Provider Impressions >Depression- Refilled paroxetine 20 mg 1 tab daily. Doing well on medication without any side effects. >Health maintenance- Ordered follow up labs. Will call with results. Discussed tracking daily grams of carbs and regular aerobic exercise to promote weight loss. Moderna 06/09/2020, 07/07/2020, 02/18/2021. Flu shot given today. Follow up in 6 months or sooner if needed. Chief Complaint Med refill. History of Present Illness The patient presents for med refills. She is doing well on paroxetine 20 mg 1 tab daily. 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 Last labs in July. She was supposed to do some follow up labs but never did. will do now Moderna 06/09/2020, 07/07/2020, 02/18/2021. Will do flu shot today. She complains of hot flashes. She had hysterectomy. she gets sweating She is having trouble losing weight. She is 198 lbs today. She used to be able to lose weight easily with diet and exercise changes. She works out 4-5 days per week. Diet is moderately healthy. Last FBS was 101 in July. She admits she loves carbs. Her brother had juvenile diabetes and mom was pre diabetic. she exercises 4 days per week Active Problems Abnormal uterine bleeding (AUB) (626.9) (N93.9) Acute upper respiratory infection (465.9) (J06.9) Anemia, unspecified type (285.9) (D64.9) Avulsion fracture of middle phalanx of finger (816.01) (S62.629A) Bariatric surgery status (V45.86) (Z98.84) Breast cancer screening by mammogram (V76.12) (Z12.31) Constipation (564.00) (K59.00) Depression (311) (F32.A) Dysfunctional uterine bleeding (626.8) (N93.8) Elevated liver enzymes (790.5) (R74.8) Encounter to establish care with new doctor (V65.8) (Z76.89) Excessive sleepiness (780.54) (G47.10) Hives (708.9) (L50.9) Hypothyroid (244.9) (E03.9) Injury, finger (959.5) (S69.90XA) Obesity (278.00) (E66.9) Pacemaker (V45.01) (Z95.0) Prediabetes (790.29) (R73.03) Preoperative clearance (V72.84) (Z01.818) Shortness of breath (786.05) (R06.02) Snoring (786.09) (R06.83) Thickened endometrium (793.5) (R93.89) Third degree heart block (426.0) (I44.2) Tinea corporis (110.5) (B35.4) Visit for gynecologic examination (V72.31) (Z01.419) Vitamin D deficiency (268.9) (E55.9) Weight gain (783.1) (R63.5) Past Medical History History of depression (V11.8) (Z86.59) Resolved Date: 20 Aug 2016 History of depression (V11.8) (Z86.59) Resolved Date: 05 Jun 2017 History of depression (V11.8) (Z86.59) Resolved Date: 26 Nov 2017 Surgical History History of Laparoscopy With Total Hysterectomy Family History Family history of endometriosis (V19.8) (Z84.2) Family history of malignant neoplasm of breast (V16.3) (Z80.3) Family history of dementia (V17.2) (Z81.8) Family history of hypercholesterolemia (V18.19) (Z83.42) Family history of diabetes mellitus (V18.0) (Z83.3) Family history of hypertension (V17.49) (Z82.49) Family history of myocardial infarction (V17.3) (Z82.49) Social History Always uses seat belt Caffeine use (V49.89) (Z78.9) Denied: History of domestic violence Minimum alcohol consumption Never a smoker No drug use Allergies No Known Drug Allergies Recorded By: Azucena Lugo; 07/13/2015 10:55:16 AM Current Meds Medication NameInstructionReason PARoxetine HCl - 20 MG Oral TabletTake 1 tablet dailyDepression Vitals Vital Signs Recorded: [id number] 09:14AM Bwdhhgdgave37.3 F Heart Bucz345 Ocikhxlfuib76 Lruuyaku133 Pmhjizlmn41 Jsenjn073 lb 6 oz BMI Cibgsyueyw99.28 kg/m2 BSA Calculated1.9 O2 Gpsfhjtqfv89 Physical Exam Constitutional: Alert and in no acute distress. Well developed, well nourished. Neck: No neck mass was observed. Supple. Cardiovascular: Heart rate and rhythm were normal, normal S1 and S2, no gallops, no murmurs and no pericardial rub. Pedal pulses: Normal. Peripheral vascular exam: Normal. No peripheral edema. Pulmonary: No respiratory distress. Clear bilateral hollie (more content not included)... Normal [facility] Office Visit (Family Iain antony)on 08-01-2020 Follow-up visit Diagnoses/Problems Prediabetes (790.29) (R73.03) Elevated liver enzymes (790.5) (R74.8) Depression (311) (F32.9) Vitamin D deficiency (268.9) (E55.9) Orders Elevated liver enzymes Hemoglobin A1C; Status:Active; Requested for:01Aug2020; Elevated liver enzymes, Prediabetes Hepatic Function Panel; Status:Active; Requested for:[id number]; Prediabetes Glucose, Fasting; Status:Active; Requested for:[id number]; Patient Discussion/Summary By signing my name below, I, Edgar Webb, attest that this documentation has been prepared under the direction and in the presence of Dr. Hemalatha López. All medical record entries made by the Octaviaibcassia were at my direction and personally dictated by me. I have reviewed the chart and agree that the record accurately reflects my personal performance of the history, physical exam, discussion and plan. Provider Impressions >Health maintenance- Reviewed labs from 07/26/2020. Blood count, lipid panel, and TSH in good range. Chemistries show FBS 101 and ALT elevated at 59. Vitamin D low at 11. She will start vitamin D3 2000 IU daily. Discussed decreasing carbs in diet and regular aerobic exercise. Will re-check FBS and liver enzymes in 3-4 months. Refilled paroxetine 20 mg with no change. Mammogram 06/06/2020 WNL. She had hysterectomy so no longer does Paps. Moderna 06/09/2020 and 07/07/2020. Follow up in 6 months or sooner if needed. Chief Complaint Med refill, blood work results. History of Present Illness The patient presents for med refills. She is doing well on paroxetine 20 mg 1 tab daily. This is her only medication. Been on it for a long time with no issues. BP today is 130/88. She admits her lifestyle is not very healthy. More sedentary than she used to be. Only exercise is walking the dog. She is struggling with weight loss. She feels puffy and tired. She did labs on 07/26/2020. Blood count, lipid panel, and TSH in good range. Chemistries show FBS 101 and ALT elevated at 59. Vitamin D low at 11. She does not take vitamin D. Her brother had juvenile diabetes. She did mammogram 06/06/2020. WNL. She had hysterectomy so no longer does Paps. She had Moderna vaccines on 06/09/2020 and 07/07/2020. Active Problems Abnormal uterine bleeding (AUB) (626.9) (N93.9) Acute upper respiratory infection (465.9) (J06.9) Anemia, unspecified type (285.9) (D64.9) Avulsion fracture of middle phalanx of finger (816.01) (S62.629A) Bariatric surgery status (V45.86) (Z98.84) Breast cancer screening by mammogram (V76.12) (Z12.31) Constipation (564.00) (K59.00) Depression (311) (F32.9) Dysfunctional uterine bleeding (626.8) (N93.8) Elevated liver enzymes (790.5) (R74.8) Encounter to establish care with new doctor (V65.8) (Z76.89) Excessive sleepiness (780.54) (G47.10) Hives (708.9) (L50.9) Hypothyroid (244.9) (E03.9) Injury, finger (959.5) (S69.90XA) Obesity (278.00) (E66.9) Pacemaker (V45.01) (Z95.0) Prediabetes (790.29) (R73.03) Preoperative clearance (V72.84) (Z01.818) Shortness of breath (786.05) (R06.02) Snoring (786.09) (R06.83) Thickened endometrium (793.5) (R93.89) Third degree heart block (426.0) (I44.2) Tinea corporis (110.5) (B35.4) Visit for gynecologic examination (V72.31) (Z01.419) Vitamin D deficiency (268.9) (E55.9) Weight gain (783.1) (R63.5) Past Medical History History of depression (V11.8) (Z86.59) Resolved Date: 20 Aug 2016 History of depression (V11.8) (Z86.59) Resolved Date: 05 Jun 2017 History of depression (V11.8) (Z86.59) Resolved Date: 26 Nov 2017 Surgical History History of Laparoscopy With Total Hysterectomy Family History Family history of endometriosis (V19.8) (Z84.2) Family history of malignant neoplasm of breast (V16.3) (Z80.3) Family history of dementia (V17.2) (Z81.8) Family history of hypercholesterolemia (V18.19) (Z83.42) Family history of diabetes mellitus (V18.0) (Z83.3) Family history of hypertension (V17.49) (Z82.49) Family history of myocardial infarction (V17.3) (Z82.49) Social History Always uses seat belt Caffeine use (V49.89) (Z78.9) Denied: History of domestic violence Minimum alcohol consumption Never a smoker No drug use Allergies No Known Drug Allergies Recorded By: Azucena Lugo; 07/13/2015 10:55:16 AM Current Meds Medication NameInstructionReason PARoxetine HCl - 20 MG Oral TabletTake 1 tablet dailyDepression Vitals Vital Signs Recorded: [id number] 02:17PM Emlwfichkct10 F Heart Rate98 Pyzvgokmcju18 Ukoxloba413 Inntnvjcu87 Sngxim585 lb 4 oz BMI Qzcppdajzp54.26 BSA Calculated1.9 O2 Lrvjaqpssc30 Physical Exam Constitutional: Alert and in no acute distress. Well developed, well nourished. Neck: No neck mass was observed. Supple. Cardiovascular: Heart rate and rhythm were normal, normal S1 and S2, no gallops, no murmurs and no pericardial rub. Carotid pulses: Normal with no bruits. Pedal pulses: Normal. Peripheral vascular e (more content not included)... Normal [facility]works CBC AND DIFFERENTIALon 07-26 % AUTOMATED IMMATURE GRAN 0.2 % Normal 0.0 - 0.9 [facility] Comment on above: Result Comment: Fanny ture Granulocyte Count (IG) includes promyelocytes, myelocytes and metamyelocytes but does not include bands. Percent differential counts (%) should be interpreted in the context of the absolute cell counts (cells/L). Performed By: #### C BCDF #### [facility] [address] [place] [address] Basophils (Bld) [#/Vol] 0.04 10*3/uL Normal 0.00 - 0.10 [facility] Comment on above: Performed By: #### C BCDF #### [facility] [address] [place] [address] Basophils/100 WBC (Bld) 0.8 % Normal 0.0 - 2.0 [facility] Comment on above: Performed By: #### C BCDF #### [address] [address] Eosinophils (Bld) [#/Vol] 0.16 10*3/uL Normal 0.00 - 0.70 [facility] Comment on above: Performed By: #### C BCDF #### [address] [address] Eosinophils/100 WBC (Bld) 3.0 % Normal 0.0 - 6.0 [facility] Comment on above: Performed By: #### C BCDF #### [address] [address] Erythrocyte distribution width (RBC) [Ratio] 12.6 % Normal 11.5 - 14.5 [facility] Comment on above: Performed By: #### C BCDF #### [address] [address] Hematocrit (Bld) [Volume fraction] 43.8 % Normal 36.0 - 46.0 [facility] Comment on above: Performed By: #### C BCDF #### [address] [address] Hemoglobin (Bld) [Mass/Vol] 15.3 g/dL Normal 12.0 - 16.0 [facility] Comment on above: Performed By: #### C BCDF #### [address] [address] Lymphocytes (Bld) [#/Vol] 1.86 10*3/uL Normal 1.20 - 4.80 [facility] Comment on above: Performed By: #### C BCDF #### [address] [address] Lymphocytes/100 WBC (Bld) 35.3 % Normal 13.0 - 44.0 [facility] Comment on above: Performed By: #### C BCDF #### [address] [address] MCHC (RBC) [Mass/Vol] 34.9 g/dL Normal 32.0 - 36.0 [facility] Comment on above: Performed By: #### C BCDF #### [address] [place] [address] MCV (RBC) [Entitic vol] 86 fL Normal 80 - 100 [facility] Comment on above: Performed By: #### C BCDF #### [facility] [address] [place] [address] Monocytes (Bld) [#/Vol] 0.42 10*3/uL Normal 0.10 - 1.00 [facility] Comment on above: Performed By: #### C BCDF #### [facility] [address] [place] [address] Monocytes/100 WBC (Bld) 8.0 % Normal 2.0 - 10.0 [facility] Comment on above: Performed By: #### C BCDF #### [address] [address] Neutrophils (Bld) [#/Vol] 2.78 10*3/uL Normal 1.20 - 7.70 [facility] Comment on above: Performed By: #### C BCDF #### [address] [address] Neutrophils/100 WBC (Bld) 52.7 % Normal 40.0 - 80.0 [facility] Comment on above: Performed By: #### C BCDF #### [address] [address] Platelets (Bld) [#/Vol] 267 10*3/uL Normal 150 - 450 [facility] Comment on above: Performed By: #### C BCDF #### [address] [address] RBC 5.08 x10E12/L Normal 4.00 - 5.20 [facility] Comment on above: Performed By: #### C BCDF #### [address] [address] WBC (Bld) [#/Vol] 5.3 10*3/uL Normal 4.4 - 11.3 [facility] Comment on above: Performed By: #### C BCDF #### [address] [address] COMPREHENSIVE PANELon 05-13- 2021 Albumin [Mass/Vol] 4.7 g/dL Normal 3.4 - 5.0 [facility] Comment on above: Performed By: #### C MP #### [address] [address] ALP [Catalytic activity/Vol] 65 U/L Normal 33 - 110 [facility] Comment on above: Performed By: #### C MP #### [address] [address] ALT [Catalytic activity/Vol] 59 U/L High 7 - 45 [facility] Comment on above: Result Comment: Annette ents treated with Sulfasalazine may generate falsely decreased results for ALT. Performed By: #### C MP #### [address] [address] Anion gap [Moles/Vol] 16 mmol/L Normal 10 - 20 [facility] Comment on above: Performed By: #### C MP #### [address] [address] AST [Catalytic activity/Vol] 29 U/L Normal 9 - 39 [facility] Comment on above: Performed By: #### C MP #### [address] [address] Bilirubin [Mass/Vol] 0.6 mg/dL Normal 0.0 - 1.2 [facility] Comment on above: Performed By: #### C MP #### [address] [address] Calcium [Mass/Vol] 9.4 mg/dL Normal 8.6 - 10.3 [facility] Comment on above: Performed By: #### C MP #### [address] [address] Chloride [Moles/Vol] 105 mmol/L Normal 98 - 107 [facility] Comment on above: Performed By: #### C MP #### [address] [address] Creatinine [Mass/Vol] 0.84 mg/dL Normal 0.50 - 1.05 [facility] Comment on above: Performed By: #### C MP #### [address] [address] GFR- AM. >60 Normal >60 [facility] Comment on above: Result Comment: CALC ULATIONS OF ESTIMATED GFR ARE PERFORMED USING THE MDRD STUDY EQUATION FOR THE IDMS-TRACEABLE CREATININE METHODS. CLIN CHEM 2007;53:766-72 Performed By: #### C MP #### [address] [address] GFR-NON AM. >60 Normal >60 [facility] Comment on above: Performed By: #### C MP #### [address] [address] Glucose [Mass/Vol] 101 mg/dL High 74 - 99 [facility] Comment on above: Performed By: #### C MP #### [address] [address] HCO3 (Bld) [Moles/Vol] 22 mmol/L Normal 21 - 32 [facility] Comment on above: Performed By: #### C MP #### [address] [address] Potassium [Moles/Vol] 3.8 mmol/L Normal 3.5 - 5.3 [facility] Comment on above: Performed By: #### C MP #### [address] [address] Protein [Mass/Vol] 8.0 g/dL Normal 6.4 - 8.2 [facility] Comment on above: Performed By: #### C MP #### [address] [address] Sodium [Moles/Vol] 139 mmol/L Normal 136 - 145 [facility] Comment on above: Performed By: #### C MP #### [address] [address] Urea nitrogen [Mass/Vol] 12 mg/dL Normal 6 - 23 [facility] Comment on above: Performed By: #### C MP #### [address] [address] LIPID PANEL (CORONARY RISK 2 )on 07-26-2020 Cholesterol [Mass/Vol] 155 mg/dL Normal 0 - 199 [facility] Comment on above: Result Comment: . AGE DESIRABLE BORDERLINE HIGH HIGH 0-19 Y 0 - 169 170 - 199 >/= 200 20-24 Y 0 - 189 190 - 224 >/= 225 >24 Y 0 - 199 200 - 239 >/= 240 All ranges are based on fasting samples. Specific therapeutic targets will vary based on patient-specific cardiac risk. . Pediatric guidelines reference:Pediatrics 2011, 128(S5). Adult guidelines reference: NCEP ATPIII Guidelines, LIZ 2001, 258:2486-97 . Venipuncture immediately after or during the administration of Metamizole may lead to falsely low results. Testing should be performed immediately prior to Metamizole dosing. Performed By: #### L IPID #### [address] [address] Cholesterol in HDL [Mass/Vol] 58.1 mg/dL Normal [facility] Comment on above: Result Comment: . AGE VERY LOW LOW NORMAL HIGH 0-19 Y < 35 < 40 40-45 ---- 20-24 Y ---- < 40 >45 ---- >24 Y ---- < 40 40-60 >60 . Performed By: #### L IPID #### [address] [address] Cholesterol in LDL [Mass/Vol] 81 mg/dL Normal 0 - 99 [facility] Comment on above: Result Comment: . NEAR BORD AGE DESIRABLE OPTIMAL HIGH HIGH VERY HIGH 0-19 Y 0 - 109 --- 110-129 >/= 130 ---- 20-24 Y 0 - 119 --- 120-159 >/= 160 ---- >24 Y 0 - 99 100-129 130-159 160-189 >/=190 . Performed By: #### L IPID #### [address] [address] Cholesterol in VLDL [Mass/Vol] 16 mg/dL Normal 0 - 40 [facility] Comment on above: Performed By: #### L IPID #### [address] [address] Cholesterol.total/ Cholesterol in HDL [Mass ratio] 2.7 {ratio} Normal [facility] Comment on above: Result Comment: REF VALUES DESIRABLE < 3.4 HIGH RISK > 5.0 Performed By: #### L IPID #### [facility] [address] [place] [address] Triglyceride [Mass/Vol] 82 mg/dL Normal 0 - 149 [facility] Comment on above: Result Comment: . AGE DESIRABLE BORDERLINE HIGH HIGH VERY HIGH 0 D-90 D 19 - 174 ---- ---- ---- 91 D- 9 Y 0 - 74 75 - 99 >/= 100 ---- 10-19 Y 0 - 89 90 - 129 >/= 130 ---- 20-24 Y 0 - 114 115 - 149 >/= 150 ---- >24 Y 0 - 149 150 - 199 200- 499 >/= 500 . Venipuncture immediately after or during the administration of Metamizole may lead to falsely low results. Testing should be performed immediately prior to Metamizole dosing. Performed By: #### L IPID #### [facility] [address] [place] [address] TSHon 07-26-2020 TSH Qn 2.10 m[IU]/L Normal 0.44 - 3.98 [facility] Comment on above: Result Comment: TSH testing is performed using different testing methodology at [facility] than at other [facility]. Direct result comparisons should only be made within the same method. Performed By: #### T SH2 #### [address] [address] VITAMIN D, 25-HYDROXYon 07-14 VITAMIN D, 25-HYDROXY 11 ng/mL Invalid Interpretation Code [facility] Comment on above: Result Comment: . DEFICIENCY: < 20 NG/ML INSUFFICIENCY: 20-29 NG/ML SUFFICIENCY: 30-100 NG/ML THIS ASSAY ACCURATELY QUANTIFIES THE SUM OF VITAMIN D3, 25-HYDROXY AND VIT D2,25-HYDROXY. Performed By: #### V TDOH #### [facility] [address] [place] [address] FINGER (S) MIN 2 VIEWSon FINGER (S) MIN 2 VIEWS Patient Name: MAREN JOHANSEN STUDY: FINGER (S) MIN 2 VIEWS; 04/12/2020 11:20 am INDICATION: right middle finger injury. COMPARISON: None. ACCESSION NUMBER(S): [id number] ORDERING CLINICIAN: ALBA RODNEY FINDINGS: Three views of the right 3rd finger obtained. Tiny density along the palmar aspect of the base of the middle phalanx on lateral view. No osseous displacement. Joint spaces are preserved. No focal soft tissue swelling is apparent. IMPRESSION: Possible new tiny nondisplaced avulsion fracture at the base of the 3rd middle phalanx. Electronically signed by: DARLINE GUTIERREZ MD Normal [facility] Office Visit (Urgent Care)on 04-12-2020 Follow-up visit Diagnoses/Problems Assessed Injury, finger (959.5) (S69.90XA) Avulsion fracture of middle phalanx of finger (816.01) (S62.629A) Orders Avulsion fracture of middle phalanx of finger Finger Splint, Static; Status:Active; Requested for:12Apr2020; Perform:In Office; Due:[id number];Ordered; For:Avulsion fracture of middle phalanx of finger; Ordered By:Alba Rodney; Injury, finger Xray Finger(s) Min 2 View; Status:Complete; Done: 12Apr2020 11:20AM Performed:[facility]; Due:11Jul2020;Ordered; Stat; For:Injury, finger; Ordered By:Alba Rodney; Reason: Unspecified for Xray Finger(s) Min 2 View Laterality : Right Radiologist to Determine Optimal Study : Y What are the patient's signs and symptoms? : right middle finger injury Provider Impressions HPI: This is a 49-year-old female presenting for evaluation of right middle finger pain. She was playing with her dog yesterday and jammed her finger into the floor. Woke up today with pain and swelling of the digit. Notes bruising as well. Denies any other injury and no falls. No numbness tingling or loss of sensation. Pain is primarily aggravated with gripping flexing and extending the digit. Alleviated with rest. Has not taken any medications for pain. No other complaints. PMH: Reviewed per EMR Allergies: NKDA Surgical history: Noncontributory Family HX: Noncontributory Social Hx: Denies ETOH or drug or tobacco use. Review of Systems: Cardiac: chest pain, palpitations, syncope, near syncope Pulmonary: shortness of breath, cough, hemoptysis GI: abdominal pain, nausea, vomiting, diarrhea Musculoskeletal: limb pain, joint pain, joint swelling, +finger pain Neuro: loss of function, sensory deficits, dizziness Review of systems is otherwise negative unless stated above or in history of present illness. Physical Exam: General: Vitals noted, no distress. Afebrile. Alert and oriented x3. Cardiac: Regular rate and rhythm. No murmur.. Pulmonary: Lungs clear bilaterally with good aeration. No adventitious breath sounds. Extremities: Exam of the right hand shows swelling and bruising of the third digit. Tender with passive and active extension. There is no warmth or erythema. The skin is intact. Is neurovascularly intact distally. Specifically, has full strength with flexion and extension of the digits. Is nontender over the wrist. Remainder the extremity is nontender. Skin: No rash Neuro: No focal neurologic deficits Medical Decision-Making: Differential Diagnosis: Is extensive but includes fracture, dislocation, nonvisualized/occult fracture, tendon/ligament injury, soft tissue injury, etc. Neurovascularly intact with full ROM and no tenderness of the metacarpal region or the wrist. X-ray shows possible small avulsion fracture of the middle phalanx. Placed in aluminum finger. Advised rice. Gkza-kjv-mtilqqg analgesics as needed. Follow-up with PCP as needed. Instructed to return to the nearest ED if any concerns or new or worsening symptoms. Patient verbalized understanding and agreement with plan. Discharged in stable condition. Impression: 1. See diagnosis Plan: Homegoing. I discussed the differential, results and discharge plan with the patient and/or family/friend/caregiver if present. I emphasized the importance of follow-up with the physician I referred them to in the timeframe recommended. I explained reasons for the patient to return to the Emergency Department. Questions were addressed. They understand return precautions and discharge instructions. The patient and/or family/friend/caregiver expressed understanding. Disposition: Discharge Disclaimer: This note was dictated using speech recognition software. An attempt at proofreading was made to minimize errors. Minor errors in associate professor of biostatistics may be present. Please call if questions. Chief Complaint co of a rt middle finger discomfort pt sates that she jammed her finger while playing with her dog yesterday Adult Risk Screening Initial Fall Risk Screening: MAREN has not fallen in the last 6 months. Her fall did not result in injury. MAREN does not have a fear of falling. She does not need assistance with sitting, standing or walking. Does not need assistance walking in her home. She does not need assistance in an unfamiliar setting. The patient is not using an assistive device. Tobacco Screening: Has not used tobacco in the past 6 months. Has not tried to quit or thought about quitting tobacco. Domestic Violence Screen: Does not feel threatened or abused physically, emotionally or sexually. Do you feel UNSAFE? The patient feels safe in the home. Depression/Suicide Screening: During the past 2 weeks, the patient has not felt down, depressed or hopeless. During the past 2 weeks, the patient has not felt little interest or pleasure in doing things. She does not have a risk of suicide. She has not had thoughts of harming others. Single alcohol screening question: Patient Declined/Screening not (more content not included)... Normal Touchworks Vital Signs Date Time Vital Sign Value Performing Clinician Kathie cortez 08-31-2024 13:02-0400 Body height 157.[address] Keshia Nettles MD Work Phone: [facility] 08-31-2024 13:02-0400 Body mass index (BMI) [Ratio] 27.1 kg/m2 Dr. Keshia Nettles MD Work Phone: [facility] 08-31-2024 13:02-0400 Body weight 67.[address] Keshia Nettles MD Work Phone: [facility] 08-31-2024 13:02-0400 Diastolic blood pressure 74 mm[Hg] Dr. Keshia Nettles MD Work Phone: [facility] 08-31-2024 13:02-0400 Heart rate 86 /min Dr. Keshia Nettles MD Work Phone: [facility] 08-31-2024 13:02-0400 Respiratory rate 17 /min Dr. Keshia Nettles MD Work Phone: [facility] 08-31-2024 13:02-0400 SaO2% (BldA) [Mass fraction] 98 % Dr. Keshia Nettles MD Work Phone: [facility] 08-31-2024 13:02-0400 Systolic blood pressure 105 mm[Hg] Dr. Keshia Nettles MD Work Phone: [facility] 08-22-2024 08:00-0400 Body height 157.[address] Keshia Nettles MD Work Phone: [facility] 08-22-2024 08:00-0400 Body mass index (BMI) [Ratio] 27.6 kg/m2 Dr. Keshia Nettles MD Work Phone: [facility] 08-22-2024 08:00-0400 Body temperature 97.9 [degF] Dr. Keshia Nettles MD Work Phone: [facility] [facility] 08-22-2024 08:00-0400 Body weight 68.[address] Keshia Nettles MD Work Phone: [facility] 08-22-2024 08:00-0400 Diastolic blood pressure 70 mm[Hg] Dr. Keshia Nettles MD Work Phone: [facility] 08-22-2024 08:00-0400 Heart rate 85 /min Dr. Keshia Nettles MD Work Phone: [facility] 08-22-2024 08:00-0400 Respiratory rate 16 /min Dr. Keshia Nettles MD Work Phone: [facility] 08-22-2024 08:00-0400 SaO2% (BldA) [Mass fraction] 97 % Dr. Keshia Nettles MD Work Phone: [facility] 08-22-2024 08:00-0400 Systolic blood pressure 112 mm[Hg] Dr. Keshia Nettles MD Work Phone: [facility] 07-12-2024 15:04-0400 Body height 157.[address] Keshia Nettles MD Work Phone: [facility] 07-12-2024 15:04-0400 Body mass index (BMI) [Ratio] 28.9 kg/m2 Dr. Keshia Nettles MD Work Phone: [facility] 07-12-2024 15:04-0400 Body weight 71.[address] Keshia Nettles MD Work Phone: [facility] 07-12-2024 15:04-0400 Diastolic blood pressure 76 mm[Hg] Dr. Keshia Nettles MD Work Phone: [facility] 07-12-2024 15:04-0400 Heart rate 87 /min Dr. Keshia Nettles MD Work Phone: [facility] 07-12-2024 15:04-0400 Respiratory rate 14 /min Dr. Keshia Nettles MD Work Phone: [facility] 07-12-2024 15:04-0400 SaO2% (BldA) [Mass fraction] 96 % Dr. Keshia Nettles MD Work Phone: [facility] 07-12-2024 15:04-0400 Systolic blood pressure 109 mm[Hg] Dr. Keshia Nettles MD Work Phone: [facility] 05-02-2024 07:58-0500 Body mass index (BMI) [Ratio] 29 kg/m2 Dr. Keshia Nettles MD Work Phone: [facility] 05-02-2024 07:58-0500 Body temperature 97.6 [degF] Dr. Keshia Nettles MD Work Phone: [facility] 05-02-2024 07:58-0500 Body weight 72.[address] Keshia Nettles MD Work Phone: [facility] 05-02-2024 07:58-0500 Diastolic blood pressure 78 mm[Hg] Dr. Keshia Nettles MD Work Phone: [facility] 05-02-2024 07:58-0500 Heart rate 83 /min Dr. Keshia Nettles MD Work Phone: [facility] 05-02-2024 07:58-0500 Respiratory rate 14 /min Dr. Keshia Nettles MD Work Phone: [facility] 05-02-2024 07:58-0500 SaO2% (BldA) [Mass fraction] 98 % Dr. Keshia Nettles MD Work Phone: [facility] 05-02-2024 07:58-0500 Systolic blood pressure 102 mm[Hg] Dr. Keshia Nettles MD Work Phone: [facility] 02-22-2021 09:14-0500 Body mass index (BMI) [Ratio] 36.28 kg/m2 Hemalatha Francis-Rene Work Phone: [facility] Work Phone: 02-22-2021 09:14-0500 Body surface area Derived from formula 1.9 m2 Hemalatha Francis-Rene Work Phone: [facility] Work Phone: 02-22-2021 09:14-0500 Body temperature 97.3 [degF] Hemalatha Francis-Rene Work Phone: [facility] Work Phone: 02-22-2021 09:14-0500 Body weight 89.99 kg Hemalatha Francis-Bressi Work Phone: [facility] Work Phone: 02-22-2021 09:14-0500 Diastolic blood pressure 80 mm[Hg] Hemalatha Francis-Rene Work Phone: [facility] Work Phone: 02-22-2021 09:14-0500 Heart rate 103 /min Hemalatha Bernal Work Phone: [facility] Work Phone: 02-22-2021 09:14-0500 Respiratory rate 16 /min Hemalatha Bernal Work Phone: [facility] Work Phone: 02-22-2021 09:14-0500 SaO2% (BldA) [Mass fraction] 97 % Hemalatha Bernal Work Phone: [facility] Work Phone: 02-22-2021 09:14-0500 Systolic blood pressure 124 mm[Hg] Hemalatha Bernal Work Phone: [facility] Work Phone: Encounters Encounter Date Encounter Type Care Provider Facility Start: 09-12-2024 ambulatory Grecia Gaytan [facility] Start: 08-31-2024 End: 08-31-[address] Grecia Gaytan MD -[facility] Work Phone: Start: 08-31-2024 End: 08-31-[address] Keshia Nettles MD Work Phone: [facility] Work Phone: Start: 08-22-2024 End: 08-22-[address] Keshia Nettles MD -[facility] Work Phone: Start: 08-22-2024 End: 08-22-[address] Keshia Nettles MD Work Phone: [facility] Work Phone: Start: 08-08-2024 End: 08-08-[address] Keshia Nettles MD Work Phone: [facility] Work Phone: Start: 08-08-2024 End: 08-08-[address] Doe Bah MD -[facility] Work Phone: Start: 08-05-2024 Non-patient / Non-visit Dr. Jonel KEY -[facility] Start: 08-05-2024 End: 08-05-[address] Keshia Nettles MD Work Phone: [facility] Work Phone: Start: 08-05-2024 End: 08-05-2024 Patient encounter procedure Margie Murillo PA -[facility] Work Phone: Start: 08-05-2024 End: 08-05-2024 ambulatory Keshia Tho Facility:[facility] Start: 07-12-2024 End: 07-12-2024 ambulatory Keshia Lagunitas Facility:[facility] Start: 07-12-2024 End: 07-12-[address] Doe Bah MD -[facility] Work Phone: Start: 05-09-2024 End: 05-09-2024 ambulatory Keshia Tho Facility:[facility] Start: 05-09-2024 End: 05-09-[address] Doe Bah MD -[facility] Work Phone: Start: 05-02-2024 End: 05-02-[address] Keshia Nettles MD -[facility] Work Phone: Start: 05-02-2024 End: 05-02-2024 ambulatory Keshia Tho Facility:[facility] Start: 02-10-2024 End: 02-10-2024 ambulatory Keshia [place]as Facility:[facility] Start: 02-01-2024 End: 02-01-2024 ambulatory Keshia Tho Facility:[facility] Start: 02-01-2024 End: 02-01-2024 ambulatory Keshia Tho Facility:[facility] Start: 12-18-2023 End: 12-18-2023 ambulatory Doe Bah Facility:[facility] Start: 11-09-2023 End: 11-09-2023 ambulatory Doe Bah Facility:[facility] Start: 11-06-2023 End: 11-06-2023 ambulatory Amita Brittono Facility:[facility] Start: 10-12-2023 End: 10-12-2023 ambulatory Keshia [place]as Facility:[facility] Start: 09-23-2023 End: 09-23-2023 ambulatory Keshia Tho Facility:[facility] Start: 09-18-2023 End: 09-18-2023 ambulatory Keshia [place]as Facility:[facility] Start: 09-18-2023 End: 09-18-2023 ambulatory Keshia Tho Facility:[facility] Start: 01-27-[address] Gabriel Worley Facility:[id number] Start: 10-21-[address] Gabriel Worley Facility:[id number] Start: 06-24-[address] Gabriel Worley Facility:[id number] Start: 02-22-2021 Office outpatient vi sit 25 minutes Hemalatha Bernal Work Phone: [facility] Work Phone: Start: 02-14-2021 Patient encounter procedure Hemalatha Bernal Work Phone: [facility] Work Phone: Start: 01-28-2021 AUDIT Hemalatha Bernal Work Phone: [facility] Work Phone: Start: 12-30-2019 Patient encounter procedure Hemalatha Bernal [facility] Work Phone: Start: 07-25-2019 Patient encounter procedure Hemalatha Bernal [facility] Work Phone: Start: 07-08-2019 Patient encounter procedure Hemalatha Bernal [facility] Work Phone: Start: 04-13-2019 Patient encounter procedure Hemalatha Bernal [facility] Work Phone: Start: 01-25-2019 Patient encounter procedure Hemalatha Bernal [facility] Work Phone: Start: 11-23-2018 Patient encounter procedure Hemalatha Bernal [facility] Work Phone: Start: 11-03-2018 Patient encounter procedure Hemalatha Bernal [facility] Work Phone: Start: 04-24-2018 Patient encounter procedure Hemalatha Bernal [facility] Work Phone: Start: 04-12-2018 Patient encounter procedure Hemalatha Bernal [facility] Work Phone: Patient encounter status Hemalatha TitoObedsheri Work Phone: [facility] Work Phone: Preoperative state Hemalatha Bernal Work Phone: [facility] Work Phone: Procedures Date Procedure Procedure Detail Performing Clinician Start: 12-30-2019 25 hydroxy includes fractions if performed Hemalatha Bernal Start: 12-30-2019 Assay of thyroid stimulating hormone tsh Hemalatha Bernal Start: 12-30-2019 Blood count complete auto&auto difrntl wbc Hemalatha Bernal Start: 12-30-2019 Comprehensive metabo lic 2000 panel Hemalatha Bernal Start: 12-30-2019 Lipid panel Hemalatha Bernal Start: 12-30-2019 MG Breast screening Zenaida Bernal History of Laparosco py With Total Hysterectomy Hemalatha Bernal Plan of Treatment Date Care Activity Detail Author Start: 08-22-2024 Patient referral [facility] Work Phone: Start: 08-23-2021 EPV, Provider: Debo Bernal, Status: Pen, Time: 9:00 AM EPV, Provider: Ladi Bernal, Status: Pen, Time: 9:00 AM [facility] Work Phone: Start: 02-22-2021 EPV, Provider: Debo Bernal, Status: Pen, Time: 9:15 AM EPV, Provider: Ladi Bernal, Status: Pen, Time: 9:15 AM [facility] Work Phone: Start: 12-30-2019 MG Breast screening Mamm - Scr eening Mammogram w/ Tomosynthesis [facility] Work Phone: Patient referral [facility] Work Phone: [facility] Work Phone: NEGATED: Highlighted row has been ruled out! Planned Goals not documented [facility] Work Phone: Immunizations Immunization Date Immunization Notes Care Provider [facility] 02-01-2024 influenza, injectabl e, madin ana canine kidney, preservative free Dr. Keshia Nettles MD Work Phone: [facility] 02-01-2024 Influenza, injectabl e, Madin Ana Canine Kidney, preservative free, quadrivalent Dr. Keshia Nettles MD Work Phone: [facility] 02-22-2021 influenza, injectabl e, quadrivalent, preservative free; Translations: [Fluarix Quadrivalent 0.5 ML Intramuscular Suspension Prefilled Syringe] Hemalatha Bernal Work Phone: [facility] Comment on above: Series: 02-22-2021 influenza, seasonal, injectable Hemalatha FrancisRene Work Phone: [facility] Work Phone: Comment on above: Series: 02-18-2021 Moderna COVID-19 Vac cine 100 MCG/0.5ML [facility] Work Phone: [facility] Comment on above: Series: 07-10-2020 Covid (Moderna) Dr. Keshia zhu MD Work Phone: [facility] 07-07-2020 Moderna COVID-19 Vac cine 100 MCG/0.5ML Intramuscular Suspension Hemalatha Tito-Bressi Work Phone: [facility] Work Phone: Comment on above: Series: 06-09-2020 Moderna COVID-19 Vac cine 100 MCG/0.5ML Intramuscular Suspension Hemalatha Tito-Bressi Work Phone: [facility] Comment on above: Series: 05-11-1998 hepatitis B vaccine, adult dosage [facility] Work [facility]: [facility] Payers Date Payer Category Payer Unknown [id number] 2023 Self-pay 2023 Unknown [id number] 1970 Unknown [id number] ..[id number] 1970 Unknown [id number] ..[id number] 1971 Unknown [id number] ..[id number] Unknown [facility] Unknown [id number] Unknown [id number] Unknown [id number] ..[id number] Unknown [id number] 2..[id number] Unknown [id number] [id number] Unknown [id number] .0.1.246544.3.579.2.462 Unknown [id number] 2.16.840.1.627439.3.579.2.462 Unknown [id number] 2.16.840.1.290396.3.579.2.462 Unknown [id number] 2.16.840.1.975281.3.579.2.462 Unknown [id number] 2.16.840.1.114405.3.579.2.462 Unknown [id number] 2.16.840.1.756824.3.579.2.462 Unknown [id number] 2.16.840.1.420959.3.579.2.462 Unknown [id number] 2.16.840.1.352154.3.579.2.462 Unknown [id number] 2.16.840.1.468362.3.579.2.462 Unknown [id number] 2.16.840.1.013001.3.579.2.462 Unknown [id number] 2.16.840.1.733957.3.579.2.462 Unknown [id number] 2.16.840.1.097530.3.579.2.462 Unknown [id number] 2.16.840.1.464905.3.579.2.462 Unknown [id number] 2.16.840.1.890704.3.579.2.462 Unknown [id number] 2.16.840.1.681436.3.579.2.462 Unknown [id number] 2.16.840.1.022412.3.579.2.462 Unknown [id number] 2.16.840.1.996445.3.579.2.462 Unknown [id number] 2.16.840.1.702192.3.579.2.462 Social History Date Type Detail Facility Minimum alcohol consumption Minimum alcohol consumption [facility] Work Phone: Start: 08-25-2023 End: 08-22-2024 Tobacco smoking status NHIS Never smoked tobacco (finding) [facility] Start: 1970 Sex Assigned At Female [facility] NEGATED: Highlighted row - - [facility] Work Phone: Functional Status Date Assessment Result Facility NEGATED: Highlighted row Functional performance Functional status health issues are not documented Disease [facility] Work Phone: Mental Status Date Assessment Result Facility NEGATED: Highlighted row Cognitive function [Interpretation] Cognitive status health issues are not documented Disease [facility] Work Phone: Progress note 08-31-2024 Note Date & Type Note Facility 08-31-2024 Progress note [facility] Progress note 08-31-2024 Note Date & Type Note Facility 08-31-2024 Progress note Note Date/Time August 31, 2024 1:24 pm [facility] [address] [place] [address]. [address] [place] [address] OFFICE VISIT Date of Service: 08/31/24 MR#: [id number] Acct: [id number] Name: MAREN JOHANSEN Rep #: [id number] : 1970 Provider: Dr. Dahiana Gaytan MD Age/Sex: 54/F Location: [facility] Status: Signed Intake Vital Signs 08/22/24 08:00 08/31/24 13:02 Height 5 ft 2 in 5 ft 2 in Weight: 151 lb 148 lb BMI 27.6 27.1 BP 112/70 105/74 Blood Pressure Location Lt brachial Rt brachial Position Sitting Sitting Respiration 16 17 Pulse 85 86 Pulse Source Monitor Monitor Temp 97.9 F Temp Source Temporal Pulse Oximetry (%) 97 98 Oxygen Delivery Method room air room air Intake Visit Reasons: COLONOSCOPY Chief Complaint: colonoscopy Is patient in pain?: No Allergies No Known Allergies Allergy (Unverified 08/31/24 13:02) Medications ?Medication ?Instructions ?Recorded ?Confirmed ?Type multivitamin 1 tab PO QDAY 05/02/2408/31 History paroxetine HCl 30 mg tablet 30 mg PO DAILY #90 tabs 08/31/24 Rx tirzepatide (weight loss) 7.5 7.5 mg (0.5 mL) subcut Q WEEK #2 mL 08/22/24 08/31/24 Rx mg/0.5 mL subcutaneous pen injector [facility] Medical History Anxiety Acute diastolic CHF (congestive heart failure) Presence of permanent cardiac pacemaker SSS (sick sinus syndrome) Third degree heart block Obesity Hypothyroid Dysfunctional uterine bleeding Depression Anemia Surgical History History of permanent cardiac pacemaker placement History of hysterectomy Family History Mother Breast cancer Hypertension Father Dementia Brother Diabetes type 1 Social History adopted: No household members: spouse number of children: 2 current occupational status: employed 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 Patient states she has bowel movements maybe once a week. Patient states she has started to increase her fiber with supplement 2 capsules. Patient states her stools are hard denies any blood. Patient denies any family history of colon cancer. Patient denies any abdominal pain/nausea/vomiting/reflux. Patient does have a permanent pacemaker in place. ROS General General: Yes weight change; No appetite, fatigue, colon cancer or breast cancer Additional Details: wt loss, is on Zepbound HEENT HEENT: No difficulty swallowing, eye injury, eye surgery, swollen glands or hoarseness Endo Endocrine: No thyroid disease, diabetes mellitus, thyroid cancer, Hair loss, heat intolerance or cold intolerance Skin Skin: No rash or changing moles Musc Musculoskeletal: No back problems, arthritis, rheumatoid arthritis, gout or joint pain Cardio Cardiovascular: Yes pacemaker; No murmur, heart disease, atrial fibrillation, high blood pressure, heart attack, heart stent, palpitations, shortness of breath with exertion or chest pain Psych Psychiatric: No depression, anxiety or hearing voices Resp Respiratory: No shortness of breath, No sleep apnea, No cough, No COPD, No asthma, No emphysema and No wheezing Gastro Gastrointestinal: No abdominal pain, No nausea or vomiting, No diarrhea, Yes constipation, No blood in stool, No acid reflux, Yes hemorrhoids, No ulcers, No gallbladder problem and No black,tarry stools Casa Hematologic: No blood thinners, No blood disorders, No bleeding, No anemia and No blood clots Neuro Neurologic: No numbness and No tingling Exam Const General: cooperative, healthy appearing, comfortable and no acute distress [facility] Head: normocephalic and atraumatic Neck Neck: supple Resp Effort & Inspection: normal respiratory effort Cardio Rate: regular rate GI Inspection: non-distended Palpation: soft and nontender Skin General: no rashes or lesions noted Neuro General: CN's II-XI intact bilaterally Extrem General: normal to inspection Psych Mental Status: mental status grossly normal Attitude: cooperative Assessment and Plan Assessment and Plan (1) Constipation: Status: Acute (2) Encounter for screening for malignant neoplasm of colon: Status: Acute (3) Presence of permanent cardiac pacemaker: Status: Acute Comment: 10/27/2018 [address] done at [facility]. The patient will now be monitored through [facility]. Her battery life expectancy is 5.4 years as of today. She is totally pacer dependent with complete heart block and today showed an escape rhythm at 40 bpm. She is tracking her atrial rate and is totally ventricular paced at 72 beats per minute on today's EKG. The patient is asymptomatic. Plan I have discussed the above with the patient. I have offered the patient colonoscopy for evaluation. I have explained the risks/benefits of the procedure and described the procedure. I have discussed the risks with the patient, including but not limited to: infection, bleeding, perforation of the GI tract requiring emergency surgery, inability to complete the procedure, injury to any internal organs, complications of anesthesia, etc. - the patient understands and agrees to proceed. I have answered all the patient's questions to the patient's satisfaction and the patient has no further questions. The patient has been given instructions for the colon cleansing preparation. 2 days of clears magnesium citrate, MiraLAX Dulcolax Grecia Gaytan M.D. Pager: [phone] [facility] [address] [place] [address], [facility], [address] [place] [address] Office: [phone] Coding Level of Care Code Off vis,new,level 3 Diagnoses Constipation K59.00 Encounter for screening for malignant neoplasm of colon Z12.11 Presence of permanent cardiac pacemaker Z95.0 08/31/24 1324 <Electronically signed by Grecia Prieto am, MD> Date _ Grecia Gaytan MD Cosigner Signature: Date (if applicable) CC: Dr. Keshia Nettles MD ~ [facility] Work Phone: Evaluation note 07-12-2024 Note Date & Type Note Facility 07-12-2024 Evaluation note Diagnosis Onset Date Resolution Presence of permanent cardiac pacemaker acute July 12 2:42pm Third degree heart block acute July 12, 2024 2:42pm Presence of permanent cardiac pacemaker acute July 12 2:42pm SSS (sick sinus syndrome) acute July 12, 2024 2:42pm Third degree heart block acute July 12, 2024 2:42pm Anxiety acute August 22, 2024 7:54am Presence of permanent cardiac pacemaker acute August 22, 2024 7:54am Third degree heart block acute August 22, 2024 7 :54am Herpes zoster vaccination declined noneactive August 22, 7:54am Moderate major depression noneactive August 22, 2024 7 :54am Menopausal symptom noneactive August 222024 7:54am Encounter for screening for malignant neoplasm of colon noneactive August 22, 2024 7 :54am Drug induced constipation noneactive August 22, 2024 7 :54am Vitamin D deficiency noneactive August 22, 2024 7:54am Obesity with body mass index (BMI) of 30.0 to 39.9 noneactive August 22, 2024 7 :54am [facility] Work Phone: Evaluation note 07-12-2024 Note Date & Type Note Facility 07-12-2024 Evaluation note Diagnosis Onset Date Resolution Presence of permanent cardiac pacemaker acute July 12 2:42pm Third degree heart block acute July 12, 2024 2:42pm Presence of permanent cardiac pacemaker acute July 12 2:42pm SSS (sick sinus syndrome) acute July 12, 2024 2:42pm Third degree heart block acute July 12, 2024 2:42pm Anxiety acute August 22, 2024 7:54am Presence of permanent cardiac pacemaker acute August 22, 2024 7:54am Third degree heart block acute August 22, 2024 7 :54am Herpes zoster vaccination declined noneactive August 22 7:54am Moderate major depression noneactive August 22, 2024 7 :54am Menopausal symptom noneactive August 222024 7:54am Encounter for screening for malignant neoplasm of colon noneactive August 22, 2024 7 :54am Drug induced constipation noneactive August 22, 2024 7 :54am Vitamin D deficiency noneactive August 22, 2024 7:54am Obesity with body mass index (BMI) of 30.0 to 39.9 noneactive August 22, 2024 7 :54am Constipation acute August 31 12:50pm Encounter for screening for malignant neoplasm of colon acute August 31, 2024 12:50pm Presence of permanent cardiac pacemaker acute August 31 12:50pm [facility] Work Phone: Evaluation note 05-02-2024 Note Date & Type Note Facility 05-02-2024 Evaluation note Diagnosis Onset Date Resolution Anxiety acute May 02, 2024 7:54am Presence of permanent cardiac pacemaker acute May 02, 2024 7:54am Third degree heart block acute May 02, 2 025 7:54am Moderate major depression noneactive May 02 2 025 7:54am Menopausal symptom noneactive 2024 7:54am Drug induced constipation noneactive February 17th, 2 025 7:54am Vitamin D deficiency noneactive 2024 7:54am Obesity with body mass index (BMI) of 30.0 to 39.9 noneactive May 02, 2 025 7:54am Presence of permanent cardiac pacemaker acute July 12 2:42pm Third degree heart block acute July 12, 2024 2:42pm Presence of permanent cardiac pacemaker acute July 12 2:42pm SSS (sick sinus syndrome) acute July 12, 2024 2:42pm Third degree heart block acute July 12, 2024 2:42pm [facility] Work Phone: Evaluation note 05-02-2024 Note Date & Type Note Facility 05-02-2024 Evaluation note Diagnosis Onset Date Resolution Anxiety acute May 02, 2024 7:54am Presence of permanent cardiac pacemaker acute May 02, 2024 7:54am Third degree heart block acute May 02, 2 025 7:54am Moderate major depression noneactive May 02, 2 025 7:54am Menopausal symptom noneactive 2024 7:54am Drug induced constipation noneactive May 02, 2 025 7:54am Vitamin D deficiency noneactive 2024 7:54am Obesity with body mass index (BMI) of 30.0 to 39.9 noneactive May 02, 2 025 7:54am Presence of permanent cardiac pacemaker acute July 12 2:42pm Third degree heart block acute July 12, 2024 2:42pm Presence of permanent cardiac pacemaker acute July 12 2:42pm SSS (sick sinus syndrome) acute July 12, 2024 2:42pm Third degree heart block acute July 12, 2024 2:42pm Anxiety acute August 22, 2024 7:54am Presence of permanent cardiac pacemaker acute August 22, 2024 7:54am Third degree heart block acute August 22, 2024 7 :54am Moderate major depression noneactive August 22, 2024 7 :54am Menopausal symptom noneactive August 222024 7:54am Drug induced constipation noneactive August 22, 2024 7 :54am Vitamin D deficiency noneactive August 22, 2024 7:54am Obesity with body mass index (BMI) of 30.0 to 39.9 noneactive August 22, 2024 7 :54am [facility] Work Phone: History of Present illness Narrative Note Date & Type Note Facility History of Present illness Narrative The patient presents for med refills.She is doing well on paroxetine 20 mg 1 tab daily. 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 She was supposed to do some follow up labs but never did. Delia will do nowModerna 06/09/2020, 07/07/2020, 02/18/2021.Will do flu shot today.She complains of hot flashes. She had hysterectomy. she gets sweatingShe is having trouble losing weight. She is 198 lbs today. She used to be able to lose weight easily with diet and exercise changes. She works out 4-5 days per week. Diet is moderately healthy. Last FBS was 101 in July. She admits she loves carbs. Her brother had juvenile diabetes and mom was pre diabetic.she exercises 4 days per week [facility] Work Phone: Hospital Discharge instructions Note Date & Type Note Facility Hospital Discharge instructions Ambulatory OrdersGeneral Surgery Location: None Selected [facility] Work Phone: Reason for referral (narrative) Note Date & Type Note Facility Reason for referral (narrative) No reason for referral information available [facility] Work Phone: Family History No Family History Records Found Grandparent Name Dates Details Family history of hypertensi on(V17.49, Z82.49) Status:Active Family history of myocardial infarction(V17.3, Z82.49) Status:Active Mother Name Dates Details Family history of malignant neoplasm of breast(V16.3, Z80.3) Status:Active Family history of endometrio sis(V19.8, Z84.2) Status:Active Father Name Dates Details Family history of hyperchole sterolemia(V18.19, Z83.42) Status:Active Family history of dementia(V 17.2, Z81.8) Status:Active Brother Name Dates Details Family history of diabetes m ellitus(V18.0, Z83.3) Status:Active Unknown Family Member Name Dates Details Family history of diabetes m ellitus: Brother(V18.0, Z83.3) Status:Active Family history of malignant neoplasm of breast: Mother(V16.3, Z80.3) Status:Active Family history of hyperchole sterolemia: Father(V18.19, Z83.42) Status:Active Family history of hypertensi on: Grandparent(V17.49, Z82.49) Status:Active Family history of myocardial infarction: Grandparent(V17.3, Z82.49) Status:Active Family history of dementia: Father(V17.2, Z81.8) Status:Active Family history of endometrio sis: Mother(V19.8, Z84.2) Status:Active Unknown Family Member Name Dates Details Family history of diabetes m ellitus: Brother(V18.0, Z83.3) Status:Active Family history of malignant neoplasm of breast: Mother(V16.3, Z80.3) Status:Active Family history of hyperchole sterolemia: Father(V18.19, Z83.42) Status:Active Family history of hypertensi on: Grandparent(V17.49, Z82.49) Status:Active Family history of myocardial infarction: Grandparent(V17.3, Z82.49) Status:Active Family history of dementia: Father(V17.2, Z81.8) Status:Active Family history of endometrio sis: Mother(V19.8, Z84.2) Status:Active Unknown Family Member Name Dates Details Family history of dementia: Father(V17.2, Z81.8) Status:Active Family history of endometrio sis: Mother(V19.8, Z84.2) Status:Active Family history of myocardial infarction: Grandparent(V17.3, Z82.49) Status:Active Family history of hypertensi on: Grandparent(V17.49, Z82.49) Status:Active Family history of hyperchole sterolemia: Father(V18.19, Z83.42) Status:Active Family history of malignant neoplasm of breast: Mother(V16.3, Z80.3) Status:Active Family history of diabetes m ellitus: Brother(V18.0, Z83.3) Status:Active Unknown Family Member Name Dates Details Family history of malignant neoplasm of breast: Mother(V16.3, Z80.3) Status:Active Family history of hyperchole sterolemia: Father(V18.19, Z83.42) Status:Active Family history of hypertensi on: Grandparent(V17.49, Z82.49) Status:Active Family history of myocardial infarction: Grandparent(V17.3, Z82.49) Status:Active Family history of dementia: Father(V17.2, Z81.8) Status:Active Family history of endometrio sis: Mother(V19.8, Z84.2) Status:Active Family history of diabetes m ellitus: Brother(V18.0, Z83.3) Status:Active Relationship Condition Age at Onset Recorded Date/T marc mother Malignant neoplasm of breast Unknown Hypertension Unknown father Dementia Unknown brother Diabetes mellitus Unknown Summary Purpose Advance Directives No Advanced Directives Records FoundNo Advanced Directives Records FoundNo Advanced Directives Records FoundNo Advanced Directives Records FoundNo Advanced Directives Records Found Chief Complaint Med refill. Chief Complaint and Reason for Visit Chief Complaint Admit Date 3 M May 02, 2024 7:54am Pacer Check Remote May 09, 2024 2:41am Pacer Check Remote July 12, 2024 9:0 0am Pacemaker check/MMM @ 3:30pm July 12, 2024 2:42pm DYSPNEA/SOB August 05, 2024 12:39 pm Reason for Visit Admit Date Anxiety May 02, 2024 7:54am Presence of permanent cardiac pacemaker May 02, 2024 7:54am Third degree heart block May 02, 2024 7:54am Moderate major depression May 02, 2024 7:54am Menopausal symptom May 02, 2024 7:54am Drug induced constipation May 02, 2024 7:54am Vitamin D deficiency May 02, 2024 7:54am Obesity with body mass index (BMI) of 30 .0 to 39.9 May 02, 2024 7:54am Presence of permanent cardiac pacemaker July 12, 2024 2:42pm Third degree heart block July 12 2:42pm SSS (sick sinus syndrome) July 12 2:42pm Chief Complaint Admit Date 3 M May 02, 2024 7:54am Pacer Check Remote May 09, 2024 2:41am Pacer Check Remote July 12, 2024 9:0 0am Pacemaker check/MMM @ 3:30pm July 12, 2024 2:42pm DYSPNEA/SOB August 05, 2024 12:39 pm 3 m fu August 22, 2024 7:54a m Reason for Visit Admit Date Anxiety May 02, 2024 7:54am Presence of permanent cardiac pacemaker May 02, 2024 7:54am Third degree heart block May 02, 2024 7:54am Moderate major depression May 02, 2024 7:54am Menopausal symptom May 02, 2024 7:54am Drug induced constipation May 02, 2024 7:54am Vitamin D deficiency May 02, 2024 7:54am Obesity with body mass index (BMI) of 30 .0 to 39.9 May 02, 2024 7:54am Presence of permanent cardiac pacemaker July 12, 2024 2:42pm Third degree heart block July 12 2:42pm SSS (sick sinus syndrome) July 12 2:42pm Anxiety August 22, 2024 7:54a m Presence of permanent cardiac pacemaker August 22, 2024 7:54am Third degree heart block August 22, 2024 7:54am Moderate major depression August 22, 2024 7:54am Menopausal symptom August 22, 2024 7:54a m Drug induced constipation August 22, 2024 7:54am Vitamin D deficiency August 22, 2024 7:54 am Obesity with body mass index (BMI) of 30 .0 to 39.9 August 22, 2024 7:54am Chief Complaint Admit Date Pacer Check Remote May 09, 2024 2:41am Pacer Check Remote July 12, 2024 9:0 0am Pacemaker check/MMM @ 3:30pm July 12, 2024 2:42pm DYSPNEA/SOB August 05, 2024 12:39 pm Pacer Check Remote August 08, 2024 2:25a m 3 m fu August 22, 2024 7:54a m Reason for Visit Admit Date Presence of permanent cardiac pacemaker July 12, 2024 2:42pm Third degree heart block July 12 2:42pm SSS (sick sinus syndrome) July 12 2:42pm Anxiety August 22, 2024 7:54a m Presence of permanent cardiac pacemaker August 22, 2024 7:54am Third degree heart block August 22, 2024 7:54am Herpes zoster vaccination declined August 22, 2024 7:54am Moderate major depression August 22, 2024 7:54am Menopausal symptom August 22, 2024 7:54a m Encounter for screening for malignant ne oplasm of colon August 22, 2024 7:54am Drug induced constipation August 22, 2024 7:54am Vitamin D deficiency August 22, 2024 7:54 am Obesity with body mass index (BMI) of 30 .0 to 39.9 August 22, 2024 7:54am Chief Complaint Admit Date Pacer Check Remote May 09, 2024 2:41am Pacer Check Remote July 12, 2024 9:0 0am Pacemaker check/MMM @ 3:30pm July 12, 2024 2:42pm DYSPNEA/SOB August 05, 2024 12:39 pm Pacer Check Remote August 08, 2024 2:25a m 3 m fu August 22, 2024 7:54a m COLONOSCOPY August 31, 2024 12:5 0pm Reason for Visit Admit Date Presence of permanent cardiac pacemaker July 12, 2024 2:42pm Third degree heart block July 12 2:42pm SSS (sick sinus syndrome) July 12 2:42pm Anxiety August 22, 2024 7:54a m Presence of permanent cardiac pacemaker August 22, 2024 7:54am Third degree heart block August 22, 2024 7:54am Herpes zoster vaccination declined August 22, 2024 7:54am Moderate major depression August 22, 2024 7:54am Menopausal symptom August 22, 2024 7:54a m Encounter for screening for malignant ne oplasm of colon August 22, 2024 7:54am Drug induced constipation August 22, 2024 7:54am Vitamin D deficiency August 22, 2024 7:54 am Obesity with body mass index (BMI) of 30 .0 to 39.9 August 22, 2024 7:54am Constipation August 31, 2024 12:5 0pm Encounter for screening for malignant ne oplasm of colon August 31, 2024 12:50pm Presence of permanent cardiac pacemaker August 31, 2024 12:50pm Additional Source Comments INFORMATION SOURCE (unrecogn ized section and content) DATE CREATED AUTHOR 04/14/2020 [facility] DATE CREATED AUTHOR AUTHOR'S ORGANIZ ATION 08/01/2020 [facility] DATE CREATED AUTHOR AUTHOR'S ORGANIZ ATION 02/23/2021 [employer] DATE CREATED AUTHOR AUTHOR'S ORGANIZ ATION 04/19/2022 [facility] DATE CREATED AUTHOR AUTHOR'S ORGANIZ ATION 09/10/2024 [facility] Care Teams (unrecognized sec tion and content) Team Status: Active Member Role Status Dates Dr. Keshia Nettles MD Primary Care Provider Active Team Status: Inactive Member Role Status Dates Dr. Keshia Nettles MD Primary Care Provider Active Start: May 02, 2024 End: May 02, 2024 Dr. Keshia Nettles MD Attending Provider Active Start: May 02, 2024 End: May 02, 2024 Dr. Keshia Nettles MD Referring Provider Active Start: May 02, 2024 End: May 02, 2024 Team Status: Inactive Member Role Status Dates Dr. Keshia Nettles MD Primary Care Provider Active Start: May 09, 2024 End: May 09, 2024 Dr. Doe Bah MD Attending Provider Active S tart: May 09, 2024 End: May 09, 2024 Team Status: Inactive Member Role Status Dates Dr. Keshia Nettles MD Primary Care Provider Active Start: July 12, 2024 End: July 12, 2024 Dr. Doe Bah MD Attending Provider Active S tart: July 12, 2024 End: July 12, 2024 Team Status: Inactive Member Role Status Dates Dr. Keshia Nettles MD Primary Care Provider Active Start: July 12, 2024 End: July 12, 2024 Dr. Keshia Nettles MD Referring Provider Active Start: July 12, 2024 End: July 12, 2024 Dr. Doe Bah MD Attending Provider Active S tart: July 12, 2024 End: July 12, 2024 Team Status: Inactive Member Role Status Dates Dr. Keshia Nettles MD Primary Care Provider Active Start: August 05, 2024 End: August 05, 2024 Margie LUCAS PA Attending Provider Active Start: August 05, 2024 End: August 05, 2024 Margie LUCAS PA Referring Provider Active Start: August 05, 2024 End: August 05, 2024 Team Status: Active Member Role Status Dates Dr. Keshia Nettles MD Primary Care Provider Active Start: August 05, 2024 Dr. Doe Bah MD Attending Provider Active S tart: August 05, 2024 Team Status: Inactive Member Role Status Dates Dr. Keshia Nettles MD Primary Care Provider Active Start: August 22, 2024 End: August 22, 2024 Dr. Keshia Nettles MD Attending Provider Active Start: August 22, 2024 End: August 22, 2024 Dr. Keshia Nettles MD Referring Provider Active Start: August 22, 2024 End: August 22, 2024 Team Status: Inactive Member Role Status Dates Dr. Keshia Nettles MD Primary Care Provider Active Start: August 08, 2024 End: August 08, 2024 Dr. Doe Bah MD Attending Provider Active S tart: August 08, 2024 End: August 08, 2024 Team Status: Inactive Member Role Status Dates Dr. Keshia Nettles MD Primary Care Provider Active Start: August 31, 2024 End: August 31, 2024 Dr. Keshia Nettles MD Referring Provider Active Start: August 31, 2024 End: August 31, 2024 Dr. Grecia Gaytan MD Attending Provider Active Start: August 31, 2024 End: August 31, 2024 Goals (unrecognized section and content) Goals may be documented in a n alternate sectionGoals may be documented in an alternate sectionGoals may be documented in an alternate sectionGoals may be documented in an alternate section FOR RECORDS PERTAINING TO PATIENTS WHO ARE OR HAVE BEEN ENROLLED IN A CHEMICAL DEPENDENCY/SUBSTANCEABUSE PROGRAM, SOME INFORMATION MAY BE OMITTED. This clinical summary was aggregated from multiple sources. Caution should be exercised in using it in the provision of clinical care. This summary normalizes information from multiple sources, and as a consequence, information in this document may materially change the coding, format and clinical context of patient data. In addition, data may be omitted in some cases. CLINICAL DECISIONS SHOULD BE BASED ON THE PRIMARY CLINICAL RECORDS. [facility] [employer] [facility]. provides no warranty or guarantee of the accuracy or completeness of information in this document.
--- OUTSIDE RECORDS SUMMARY | 2024-09-12 06:14 | XMS RPT_ITS | CCD ---
Author Organization [facility] Care Team Providers Care Traffic And Transport Planner Name Role Phone Hemalatha Bernal Unavailable Unavai [...] Provider Lukas KEY, Dr. Paige Attending Provider Ethridge, Keshia Primary Care Unavailable Olvin, [place] Attending Unavailable Tho, Keshia Primary Care Unavailable Olvin, [place] Attending Unavailable Ethridge, Keshia Primary Care Unavailable Ethridge, Keshia Attending Unavailable Tho, Keshia Referring Unavailable Tho, Keshia Primary Care Unavailable Olvin, [place] Attending Unavailable Olvin, [place] Attending Unavailable Tho, Keshia Primary Care Unavailable Ethridge, Keshia Attending Unavailable Ethridge, Keshia Primary Care Unavailable Tho, Keshia Referring Unavailable Tho, Keshia Primary Care Unavailable Olvin, [place] Attending Unavailable Ethridge, Keshia Primary Care Unavailable Ethridge, Keshia Referring Unavailable Margie Delgado Attending Unavail able Tho, Keshia Referring Unavailable Ethridge, Keshia Attending Unavailable Ethridge, Keshia Primary Care Unavailable Ethridge, Keshia Primary Care Unavailable Olvin, Doe Attending Unavailable Tho, Keshia Referring Unavailable Tho, Keshia Primary Care Unavailable Margie Delgado Referring Unavail able Margie Delgado Attending Unavail able Grecia Gaytan Attending Unavailable Tho, Keshia Referring Unavailable Ethridge, Keshia Primary Care Unavailable Grecia Gaytan Attending Unavailable Tho, Keshia Referring Unavailable Tho, Keshia Primary Care Unavailable Tho, Keshia Attending Unavailable Ethridge, Keshia Primary Care Unavailable Ethridge, Keshia Referring Unavailable Ethridge, Keshia Attending Unavailable Ethridge, Keshia Primary Care Unavailable Ethridge, Keshia Attending Unavailable Ethridge, Keshia Primary Care Unavailable Ethridge, Keshia Referring Unavailable Ethridge, Keshia Primary Care Unavailable Olvin, Doe Attending Unavailable Ethridge, Keshia Referring Unavailable Kishan Smith Attending Unavailable Tho, Keshia Primary Care Unavailable Amita Schwarz Attending Unavailable Tho, Keshia Referring Unavailable Ethridge, Keshia Primary Care Unavailable Olvin, Doe Attending Unavailable Ethridge, Keshia Primary Care Unavailable Tho, Keshia Primary Care Unavailable Olvin, [place] Attending Unavailable Medications Current Medications Medication Drug [...] above: 10/27/2018 this was d one at [facility]. The patient will now be monitored through the [place] [facility]. Her battery life expectancy is [...] Value Interpretation Reference Range Facility MR/PATIsaiah 09-09-2024 MR/PAT.[facility] Medical Records Department [address] [place] [address] PAT - Anesthesia 09/09/24 1030 MR#: [id number] Acct: [id number] Name: MAREN JOHANSEN Rep #: [id number] : 1970 54 From: Chung Brower MD PCP: Dr. 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 Female Yes 09/09/24 09:23 HX of Motion [...] 08/31/24 13:02 Respiratory Assessment Respiratory Assessment - cargo broker: Respiratory Tract Infection Hx - cargo broker Hx Respiratory Tract Infection No 09/09/24 09:23 STOP Sleep Apnea STOP Sleep Apnea - cargo broker: STOP Sleep Apnea - cargo broker Hx Hypertension No 09/09/24 09:23 Hx Sleep [...] 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 History - cargo broker: Tobacco Use History - cargo broker Tobacco Use Smoking Status Never smoker 09/09/24 09:23 Hx Tobacco Use No 09/09/24 09:23 Years Smoking Packs Smoked per Day Smoking Cessation Date was within the last 15 years Hx Smoking Cessation Date Hx Smoking Cessation Counseling Hematologic Medial History Hematologic Hx - cargo broker: Hematologic 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 [place] [address] OFFICE VISIT Date of Service: 08/31/24 MR#: [id number] Acct: [id number] Name: MAREN JOHANSEN Rep #: [id number] : 1970 Provider: Dr. 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 Keshia burrell MD Age/Sex: 54/F Location: [facility] Status: Signed Intake Vital Signs 05/02/24 07:58 [...] 3 m fu Chief Complaint: MED FU Asset Manager Required: No Is patient in pain?: No [...] pen injector Nurse's Note: Needs paxil refilled. 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 Camilo Echols, Kathie Cagle, Dion Palmer and colleagues, with an educational bryan from [employer]. DWIGHT-7 BMS DWIGHT-7 Feeling nervous, anxious, or [...] and colleagues, with an educational bryan from [employer]. HPI HPI Chief Complaint: MED FU Details: [...] Doe Bah on 08-06-2024 Study report [facility] [address] [place] [address] Echo Complete 08/05/24 1257 MR#: [id number] Acct: [id number] Name: MAREN JOHANSEN Rep #:[id number] : 1970 54 From: Doe Lew Attending Dr: LANCE Ivy Status: REG CLI Ordering Dr: Margie Murillo PA Date: 08/05/24 Location: [facility] Sex: F C Admitted: Reason For Study [...] Date _ Doe Bah MD CC: Dr. Ksehia Nettles MD; LANCE Ivy ~ Date Dictated: 08/05/24 1257 Date Transcribed: 08/06/241105 Fire Supervisor: Signed [facility] Work Phone: Echo Completeon 08-05-2024 Echo Complete [facility] [address] [place] [address] Echo Complete 08/05/24 1257 MR#: [id number] Acct: [id number] Name: MAREN JOHANSEN Rep #: [id number] : 1970 54 From: Doe Bah MD [...] cm AV (velocity ratio): 0.73 TR max linyd: 209.8 cm/sec TR max P.6 mmHg ECHO/Echo Complete Interpretation Summary Normal LV size. The left ventricular ejection fraction is 55 %. Stage 1 diastolic dysfunction. ___ Ordering Physician: Margie Murillo Referring Physician: Keshia Nettles; Dimas Mcmahon Performed By: Lori Haley RDCS, RVT 08/06/24 1106 Date Doe Bah MD CC: Dr. Keshia Nettles MD; LANCE Ivy Date Dictated: 08/05/24 1257 Date Transcribed: 08/06/24 1106 Fire Supervisor: Signed Normal [facility] 12 Lead EKG performed by [facility] on 07-12-2024 12 Lead EKG performed by [facility] [address] [place] [address] 12 Lead EKG performed by [facility] 07/12/24 1506 MR#: [id number] Acct: [id number] Name: MAREN JOHANSEN Rep #: [id number] : 1970 54 From: Margie Mas Attending Dr: LANCE Ivy Status: DEP AMB Ordering Dr: Margie Murillo Date: 06/15 12/08 Location: [facility] Sex: F C Admitted: [facility]/12 Lead EKG performed by [facility] ECG Report Interpretation -Electronic ventricular pacemaker Pacemaker ECG, No further analysis INSUFFICIENT DATAElectronically signed on 07/14/2024 at 07:[address] Dimas Rodriguez Software Version 8610 07/14/24 0753 Date Margie LUCAS CC: Dr. Keshia Nettles MD Date Dictated: 07/12/24 1506 Date Transcribed: 07/12/24 1506 Fire Supervisor: MMM Signed Normal [facility] Cardiology Visit Reporton Cardiology Visit Report [facility] [address] [place] [address] OFFICE VISIT Date of Service: 07/12/24 MR#: [id number] Acct: [id number] Name: MAREN JOHANSEN Rep #: [id number] : 1970 Provider: LANCE Oconnor Age/Sex: 54/F Location: 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 [place] [address] Pacemaker Check Date of Service: 07/12/241704 MR#: [id number] Acct: [id number] Name: MAREN JOHANSEN Rep #: [id number] : 1970 From: April Brown Age/Sex: 54/F Location: [facility] Status: Signed Billing Codes PM Device Codes: 49224 PM Dev Prog Eval, Dual Assessment and Plan Assessment and Plan (1) Presence of permanent cardiac pacemaker: Status: Acute Comment: 10/27/2018 this was done at [facility]. The patient will now be monitored through the [place] [facility]. Her battery life expectancy is [...] Vis alangel 04-28-2024 Internal Medicine Office Visit [facility] [address] [place] [address] [place] [address] OFFICE VISIT Date of Service: 05/02/24 MR#: [id number] Acct: [id number] Name: MAREN JOHANSEN Rep #: [id number] : 1970 Provider: Dr. 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 [place] [address] [place],Total 9.3 mg/dL Normal 8.5-10.1 [facility] Comment on above: Performed By: #### L 506.1000, L500.2500 #### [facility] [address] [facility] [address] Chloride [Moles/Vol] 109 mmol/L High 98-107 [facility] Comment on above: Performed By: #### L 506.1000, L500.2500 #### [facility] [address] [facility] [address] CO2 [Moles/Vol] 23.0 mmol/L Normal 21.0-32.0 [facility] Comment on above: Performed By: #### L 506.1000, L500.2500 #### [facility] [address] [place], [address] Creatinine [Mass/Vol] 0.78 mg/dL Normal 0.55-1.02 [facility] Comment on above: Result Comment: The validity of the calculated GFR GFRAA in patients over 70 years has not been determined. Clinical correlation is essential. Performed By: #### L 506.1000, L500.2500 #### [facility] [address] [place], [address] EST GFR - AA 100 mL/min Normal >60 [facility] Comment on above: Result Comment: Afri can [place]an GFR Calc Performed By: #### L 506.1000, L500.2500 #### [facility] [address] [place], [address] GAP 6 Normal 5-15 [facility] Comment on above: Performed By: #### L 506.1000, L500.2500 #### [facility] [address] [place], [address] GFR/1.73 sq M.predicted among non-blacks MDRD (S/P/Bld) [Vol rate/Area] 83 mL/min/{1.73_m2} Normal >60 [facility] Comment on above: Result Comment: Non- GFR Calc Performed By: #### L 506.1000, L500.2500 #### [facility] [address] [place], [address] Glucose [Mass/Vol] 90 mg/dL Normal 74-106 [facility] Comment on above: Performed By: #### L 506.1000, L500.2500 #### [facility] [address] [place], [address] Potassium [Moles/Vol] 3.6 mmol/L Normal 3.5-5.1 [facility] Comment on above: Performed By: #### L 506.1000, L500.2500 #### [facility] [address] [place], [address] Sodium [Moles/Vol] 138 mmol/L Normal 136-145 [facility] Comment on above: Performed By: #### L 506.1000, L500.2500 #### [facility] [address] [place], [place], [address] Urea nitrogen [Mass/Vol] 12 mg/dL Normal 7-18 [facility] Comment on above: Performed By: #### L 506.1000, L500.2500 #### [facility] [address] [place], [place], [address] Vitamin D,25 Hydroxyon 01-31 Vitamin D 25-OH [...] Hospital Laboratory [address] [place], [place], [address] Internal Medicine Office Vis servando 01-27-2024 Internal Medicine Office Visit [facility] [address] [place], [place] [address] OFFICE VISIT Date of Service: 02/01/24 MR#: [id number] Acct: [id number] Name: CALEBDARIOMINGOMAREN Elizabeth Rep #: [id number] : 1970 Provider: Dr. Keshia burrell MD Age/Sex: 53/F Location: [facility] Status: Signed Intake Vital Signs 11/06/23 13:53 [...] 3 M FU Chief Complaint: MED FU Asset Manager Required: No Accompanied by: Self Is patient in pain?: No Allergies No Known Allergies Allergy (Unverified 02/01/24 08:21) Medications ???Medication ???Instructions ???Recorded ???Confirmed ???Type paroxetine HCl 30 mg tablet 30 mg PO DAILY #90 tabs 12/21/23 02/01/24 Rx tirzepatide (weight loss) 5 mg/0.5 5 mg (0.5 mL) subcut QWEEK #2 mL 02/01/24 02/01/24 Rx mL subcutaneous pen injector (Zepbound) [facility] Medical History Anxiety Acute diastolic CHF (congestive [...] 2 current occupational status: employed 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 [...] Vis servando 11-06-2023 Internal Medicine Office Visit [facility] [place] [address] [place] [address] OFFICE VISIT Date of Service: 11/06/23 MR#: [id number] Acct: [id number] Name: MAREN JOHANSEN Rep #: [id number] : 1970 Provider: GIOVANNA lester Age/Sex: 53/F Location: [facility] Status: Signed Intake Vital Signs 10/12/23 09:13 [...] occupational status: employed 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 Keshia burrell MD Age/Sex: 53/F Location: [facility] Status: Signed Intake Vital Signs 08/25/23 13:05 09/23/23 07:57 Height 5 ft 2 in 5 ft 2 in Weight: 196 lb BMI 35.8 BP 122/80 H Blood Pressure Location Lt brachial Position Sitting Respiration 18 Pulse 73 Pulse Source Monitor Temp 97.2 F L Temp Source Temporal Pulse Oximetry (%) 97 Oxygen Delivery Method room air Intake Visit Reasons: f/u Chief Complaint: f/u Asset Manager Required: No Accompanied by: Self Is patient in pain?: No Allergies No Known Allergies Allergy (Unverified 09/23/23 07:54) Medications ???Medication ???Instructions ???Recorded ???Confirmed ???Type paroxetine HCl 30 mg tablet 30 mg PO DAILY #90 tabs 09/21/23 09/23/23 Rx tirzepatide (weight loss) 2.5 2.5 mg (0.5 mL) subcut QWEEK 4 09/23/23 09/23/23 Rx mg/0.5 mL subcutaneous pen weeks #2 mL injector (Zepbound) [facility] Medical History Anxiety Acute diastolic CHF (congestive [...] 2 current occupational status: employed 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 Keshia Nettles MD Status: REG CLI Study: SCRN MAMM (CAD)W/NARESH BILAT Date of Exam: 08/06 Exam# [id number] Ordering Dr: Keshia Nettles MD [id number] MAMMOGRAPHY - BILATERAL SCREENING REASON FOR EXAM: [...] delay biopsy of a clinically suspicious abnormality. [id number] Electronically Signed: Dirk Hernandez MD at 10:44 EDT , CC: Dr. 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 [...] 1 tablet dailyDepression Vitals Vital Signs Recorded: [id number] 09:14AM Iiuotziubtu19.3 F Heart Ojys676 Mcmhgbgboim34 Hvqtzpak955 Xbnwvprir41 Idjurs984 lb 6 oz BMI Drrfnsvzot23.28 kg/m2 BSA Calculated1.9 O2 Zlxpbuvyhg36 Physical Exam Constitutional: Alert and in no acute distress. Well developed, well nourished. Neck: No neck mass was observed. Supple. Cardiovascular: Heart rate and rhythm were normal, normal S1 and S2, no gallops, no murmurs and no pericardial rub. Pedal pulses: Normal. Peripheral vascular exam: Normal. No peripheral edema. Pulmonary: No respiratory distress. Clear bilateral hollie (more content not included)... Normal [facility] Office Visit (Family Iain antony)on 08-01-2020 Follow-up visit Diagnoses/Problems Prediabetes (790.29) (R73.03) Elevated liver enzymes (790.5) (R74.8) Depression (311) (F32.9) Vitamin D deficiency (268.9) (E55.9) Orders Elevated liver enzymes Hemoglobin A1C; Status:Active; Requested for:01Aug2020; Elevated liver enzymes, Prediabetes Hepatic Function Panel; Status:Active; Requested for:20Skr2530; Prediabetes Glucose, Fasting; Status:Active; Requested for:42Smk2703; Patient Discussion/Summary By signing my name below, [...] 1 tablet dailyDepression Vitals Vital Signs Recorded: 58Zbj6105 02:17PM Hkwdvlcoceg86 F Heart Rate98 Ftfqayfkltb99 Btlbuyeg438 Xofofstlk52 Zjyiyz162 lb 4 oz BMI Fhrywycnjn12.26 BSA Calculated1.9 O2 Mkjmcxorie16 Physical Exam Constitutional: Alert and in no [...] GRAN 0.2 % Normal 0.0 - 0.9 [facility] Comment on above: Result Comment: Fanny ture Granulocyte Count (IG) includes promyelocytes, myelocytes and metamyelocytes but does not include bands. Percent differential counts (%) should be interpreted in the context of the absolute cell counts (cells/L). Performed By: #### C BCDF #### [facility] [address] [place] [address] Basophils (Bld) [#/Vol] 0.04 10*3/uL Normal 0.00 - 0.10 [facility] Comment on above: Performed By: #### C BCDF #### [facility] [address] [place] [address] Basophils/100 WBC (Bld) 0.8 % Normal 0.0 - 2.0 [facility] Comment on above: Performed By: #### C BCDF #### [address] [address] Eosinophils (Bld) [#/Vol] 0.16 10*3/uL Normal 0.00 - 0.70 [facility] Comment on above: Performed By: #### C BCDF #### [address] [address] Eosinophils/100 WBC (Bld) 3.0 % Normal 0.0 - 6.0 [facility] Comment on above: Performed By: #### C BCDF #### [address] [address] Erythrocyte distribution width (RBC) [Ratio] 12.6 % Normal 11.5 - 14.5 [facility] Comment on above: Performed By: #### C BCDF #### [address] [address] Hematocrit (Bld) [Volume fraction] 43.8 % Normal 36.0 - 46.0 [facility] Comment on above: Performed By: #### C BCDF #### [address] [address] Hemoglobin (Bld) [Mass/Vol] 15.3 g/dL Normal 12.0 - 16.0 [facility] Comment on above: Performed By: #### C BCDF #### [address] [address] Lymphocytes (Bld) [#/Vol] 1.86 10*3/uL Normal 1.20 - 4.80 [facility] Comment on above: Performed By: #### C BCDF #### [address] [address] Lymphocytes/100 WBC (Bld) 35.3 % Normal 13.0 - 44.0 [facility] Comment on above: Performed By: #### C BCDF #### [address] [address] MCHC (RBC) [Mass/Vol] 34.9 g/dL Normal 32.0 - 36.0 [facility] Comment on above: Performed By: #### C BCDF #### [address] [place] [address] MCV (RBC) [Entitic vol] 86 fL Normal 80 - 100 [facility] Comment on above: Performed By: #### C BCDF #### [facility] [address] [place] [address] Monocytes (Bld) [#/Vol] 0.42 10*3/uL Normal 0.10 - 1.00 [facility] Comment on above: Performed By: #### C BCDF #### [facility] [address] [place] [address] Monocytes/100 WBC (Bld) 8.0 % Normal 2.0 - 10.0 [facility] Comment on above: Performed By: #### C BCDF #### [address] [address] Neutrophils (Bld) [#/Vol] 2.78 10*3/uL Normal 1.20 - 7.70 [facility] Comment on above: Performed By: #### C BCDF #### [address] [address] Neutrophils/100 WBC (Bld) 52.7 % Normal 40.0 - 80.0 [facility] Comment on above: Performed By: #### C BCDF #### [address] [address] Platelets (Bld) [#/Vol] 267 10*3/uL Normal 150 - 450 [facility] Comment on above: Performed By: #### C BCDF #### [address] [address] RBC 5.08 x10E12/L Normal 4.00 - 5.20 [facility] Comment on above: Performed By: #### C BCDF #### [address] [address] WBC (Bld) [#/Vol] 5.3 10*3/uL Normal 4.4 - 11.3 [facility] Comment on above: Performed By: #### C BCDF #### [address] [address] COMPREHENSIVE PANELon 05-13- 2021 Albumin [Mass/Vol] 4.7 g/dL Normal 3.4 - 5.0 [facility] Comment on above: Performed By: #### C MP #### [address] [address] ALP [Catalytic activity/Vol] 65 U/L Normal 33 - 110 [facility] Comment on above: Performed By: #### C MP #### [address] [address] ALT [Catalytic activity/Vol] 59 U/L High 7 - 45 [facility] Comment on above: Result Comment: Annette ents treated with Sulfasalazine may generate falsely decreased results for ALT. Performed By: #### C MP #### [address] [address] Anion gap [Moles/Vol] 16 mmol/L Normal 10 - 20 [facility] Comment on above: Performed By: #### C MP #### [address] [address] AST [Catalytic activity/Vol] 29 U/L Normal 9 - 39 [facility] Comment on above: Performed By: #### C MP #### [address] [address] Bilirubin [Mass/Vol] 0.6 mg/dL Normal 0.0 - 1.2 [facility] Comment on above: Performed By: #### C MP #### [address] [address] Calcium [Mass/Vol] 9.4 mg/dL Normal 8.6 - 10.3 [facility] Comment on above: Performed By: #### C MP #### [address] [address] Chloride [Moles/Vol] 105 mmol/L Normal 98 - 107 [facility] Comment on above: Performed By: #### C MP #### [address] [address] Creatinine [Mass/Vol] 0.84 mg/dL Normal 0.50 - 1.05 [facility] Comment on above: Performed By: #### C MP #### [address] [address] GFR- AM. >60 Normal >60 [facility] Comment on above: Result Comment: CALC ULATIONS OF ESTIMATED GFR ARE PERFORMED USING THE MDRD STUDY EQUATION FOR THE IDMS-TRACEABLE CREATININE METHODS. CLIN CHEM 2007;53:766-72 Performed By: #### C MP #### [address] [address] GFR-NON AM. >60 Normal >60 [facility] Comment on above: Performed By: #### C MP #### [address] [address] Glucose [Mass/Vol] 101 mg/dL High 74 - 99 [facility] Comment on above: Performed By: #### C MP #### [address] [address] HCO3 (Bld) [Moles/Vol] 22 mmol/L Normal 21 - 32 [facility] Comment on above: Performed By: #### C MP #### [address] [address] Potassium [Moles/Vol] 3.8 mmol/L Normal 3.5 - 5.3 [facility] Comment on above: Performed By: #### C MP #### [address] [address] Protein [Mass/Vol] 8.0 g/dL Normal 6.4 - 8.2 [facility] Comment on above: Performed By: #### C MP #### [address] [address] Sodium [Moles/Vol] 139 mmol/L Normal 136 - 145 [facility] Comment on above: Performed By: #### C MP #### [address] [address] Urea nitrogen [Mass/Vol] 12 mg/dL Normal 6 - 23 [facility] Comment on above: Performed By: #### C MP #### [address] [address] LIPID PANEL (CORONARY RISK 2 )on 07-26-2020 Cholesterol [Mass/Vol] 155 mg/dL Normal 0 - 199 [facility] Comment on above: Result Comment: . AGE [...] dosing. Performed By: #### L IPID #### [address] [address] Cholesterol in HDL [Mass/Vol] 58.1 mg/dL Normal [facility] Comment on above: Result Comment: . AGE VERY LOW LOW NORMAL HIGH 0-19 Y < 35 < 40 40-45 ---- 20-24 Y ---- < 40 >45 ---- >24 Y ---- < 40 40-60 >60 . Performed By: #### L IPID #### [address] [address] Cholesterol in LDL [Mass/Vol] 81 mg/dL Normal 0 - 99 [facility] Comment on above: Result Comment: . NEAR BORD AGE DESIRABLE OPTIMAL HIGH HIGH VERY HIGH 0-19 Y 0 - 109 --- 110-129 >/= 130 ---- 20-24 Y 0 - 119 --- 120-159 >/= 160 ---- >24 Y 0 - 99 100-129 130-159 160-189 >/=190 . Performed By: #### L IPID #### [address] [address] Cholesterol in VLDL [Mass/Vol] 16 mg/dL Normal 0 - 40 [facility] Comment on above: Performed By: #### L IPID #### [address] [address] Cholesterol.total/ Cholesterol in HDL [Mass ratio] 2.7 {ratio} Normal [facility] Comment on above: Result Comment: REF VALUES DESIRABLE < 3.4 HIGH RISK > 5.0 Performed By: #### L IPID #### [facility] [address] [place] [address] Triglyceride [Mass/Vol] 82 mg/dL Normal 0 - 149 [facility] Comment on above: Result Comment: . AGE [...] dosing. Performed By: #### L IPID #### [facility] [address] [place] [address] TSHon 07-26-2020 TSH Qn 2.10 m[IU]/L Normal 0.44 - 3.98 [facility] Comment on above: Result Comment: TSH testing is performed using different testing methodology at [facility] than at other legacy [facility]. Direct result comparisons should only be made within the same method. Performed By: #### T SH2 #### [address] [address] VITAMIN D, 25-HYDROXYon 07-14 VITAMIN D, 25-HYDROXY 11 ng/mL Invalid Interpretation Code [facility] Comment on above: Result Comment: . DEFICIENCY: < 20 NG/ML INSUFFICIENCY: 20-29 NG/ML SUFFICIENCY: 30-100 NG/ML THIS ASSAY ACCURATELY QUANTIFIES THE SUM OF VITAMIN D3, 25-HYDROXY AND VIT D2,25-HYDROXY. Performed By: #### V TDOH #### [facility] [address] [place] [address] FINGER (S) MIN 2 VIEWSon FINGER (S) MIN 2 VIEWS Patient Name: MAREN JOHANSEN STUDY: FINGER (S) MIN 2 VIEWS; 04/12/2020 11:20 am INDICATION: right middle finger injury. COMPARISON: None. ACCESSION NUMBER(S): [id number] ORDERING CLINICIAN: ALBA RODNEY FINDINGS: Three views [...] Electronically signed by: DARLINE GUTIERREZ MD Normal [facility] Office Visit (Urgent Care)on 04-12-2020 Follow-up visit Diagnoses/Problems Assessed Injury, finger (959.5) (S69.90XA) Avulsion fracture of middle phalanx of finger (816.01) (S62.629A) Orders Avulsion fracture of middle phalanx of finger Finger Splint, Static; Status:Active; Requested for:12Apr2020; Perform:In Office; Due:[id number];Ordered; For:Avulsion fracture of middle phalanx of finger; Ordered By:Alba Rodney; Injury, finger Xray Finger(s) Min 2 View; Status:Complete; Done: 12Apr2020 11:20AM Performed:[facility]; Due:11Jul2020;Ordered; Stat; For:Injury, finger; Ordered By:Alba [...] phalanx. Placed in aluminum finger. Advised rice. Lafd-iat-mbtrehj analgesics as needed. Follow-up with PCP as [...] made to minimize errors. Minor errors in tube winder may be present. Please call if questions. [...] Diastolic blood pressure 76 mm[Hg] Dr. Keshia eNttles MD Work Phone: [facility] [...] [Ratio] 36.28 kg/m2 Hemalatha Francis-Rene Work Phone: [facility] Work Phone: 02-22-2021 09:14-0500 Body surface area Derived from formula 1.9 m2 Hemalatha Francis-Rene Work Phone: [facility] Work Phone: 02-22-2021 09:14-0500 Body temperature 97.3 [degF] Hemalatha Francis-Rene Work Phone: [facility] Work Phone: 02-22-2021 09:14-0500 Body weight 89.99 kg Hemalatha Francis-Bressi Work Phone: [facility] Work Phone: 02-22-2021 09:14-0500 Diastolic blood pressure 80 mm[Hg] Hemalatha Francis-Rene Work Phone: [facility] Work Phone: 02-22-2021 09:14-0500 Heart rate 103 /min Hemalatha Bernal Work Phone: [facility] Work Phone: 02-22-2021 09:14-0500 Respiratory rate 16 /min Hemalatha Bernal Work Phone: [facility] Work Phone: 02-22-2021 09:14-0500 SaO2% (BldA) [Mass fraction] 97 % Hemalatha Bernal Work Phone: [facility] Work Phone: 02-22-2021 09:14-0500 Systolic blood pressure 124 mm[Hg] Hemalatha Bernal Work Phone: [facility] Work Phone: Encounters Encounter Date Encounter Type Care Provider Facility Start: 09-12-2024 ambulatory Grecia Gaytan [facility] Start: 08-31-2024 End: 08-31-[address] Grecia Gaytan MD -[facility] Work Phone: Start: 08-31-2024 End: 08-31-[address] Keshia Nettles MD Work Phone: [facility] Work Phone: Start: 08-22-2024 End: 08-22-[address] Keshia Nettles MD -[facility] Work Phone: Start: 08-22-2024 End: 08-22-[address] Keshia Nettles MD Work Phone: [facility] Work Phone: Start: 08-08-2024 End: 08-08-[address] Keshia Nettles MD Work Phone: [facility] Work Phone: Start: 08-08-2024 End: 08-08-[address] Doe Bah MD -[facility] Work Phone: Start: 08-05-2024 Non-patient / Non-visit Dr. Jonel [facility] Start: 08-05-2024 End: 08-05-[address] Keshia Nettles MD Work Phone: [facility] Work Phone: Start: 08-05-2024 End: 08-05-2024 Patient encounter procedure Margie Murillo PA -[facility] Work Phone: Start: 08-05-2024 End: 08-05-2024 ambulatory Keshia Tho Facility:[facility] Start: 07-12-2024 End: 07-12-2024 ambulatory Keshia Ethridge Facility:[facility] Start: 07-12-2024 End: 07-12-[address] Doe Bah MD -[facility] Work Phone: Start: 05-09-2024 End: 05-09-2024 ambulatory Keshia Tho Facility:[facility] Start: 05-09-2024 End: 05-09-[address] Doe Bah MD -[facility] Work Phone: Start: 05-02-2024 End: 05-02-[address] Keshia Nettles MD -[facility] Work Phone: Start: 05-02-2024 End: 05-02-2024 ambulatory Keshia Tho Facility:[facility] Start: 02-10-2024 End: 02-10-2024 ambulatory Keshia Ethridge Facility:[facility] Start: 02-01-2024 End: 02-01-2024 ambulatory Keshia Tho Facility:[facility] Start: 02-01-2024 End: 02-01-2024 ambulatory Keshia Tho Facility:[facility] Start: 12-18-2023 End: 12-18-2023 ambulatory Doe Bah Facility:[facility] Start: 11-09-2023 End: 11-09-2023 ambulatory Doe Bah Facility:[facility] Start: 11-06-2023 End: 11-06-2023 ambulatory Amita Brittono Facility:[facility] Start: 10-12-2023 End: 10-12-2023 ambulatory Keshia Ethridge Facility:[facility] Start: 09-23-2023 End: 09-23-2023 ambulatory Keshia Tho Facility:[facility] Start: 09-18-2023 End: 09-18-2023 ambulatory Keshia Ethridge Facility:[facility] Start: 09-18-2023 End: 09-18-2023 ambulatory Keshia Tho Facility:[facility] Start: 01-27-[address] Gabriel Worley Facility:[id number] Start: 10-21-[address] Gabriel Worley Facility:[id number] Start: 06-24-[address] Gabriel Worley Facility:[id number] Start: 02-22-2021 Office outpatient vi sit 25 minutes Hemalatha Bernal Work Phone: [facility] Work Phone: Start: 02-14-2021 Patient encounter procedure Hemalatha Bernal Work Phone: [id number] Work Phone: Start: 01-28-2021 AUDIT Hemalatha Bernal Work Phone: [facility] Work Phone: Start: 12-30-2019 Patient encounter procedure Hemalatha Bernal [facility] Work Phone: Start: 07-25-2019 Patient encounter procedure Hemalatha Bernal [facility] Work Phone: Start: 07-08-2019 Patient encounter procedure Hemalatha Bernal [facility] Work Phone: Start: 04-13-2019 Patient encounter procedure Hemalatha Bernal [facility] Work Phone: Start: 01-25-2019 Patient encounter procedure Hemalatha Bernal [facility] Work Phone: Start: 11-23-2018 Patient encounter procedure Hemalatha Bernal [facility] Work Phone: Start: 11-03-2018 Patient encounter procedure Hemalatha Bernal [facility] Work Phone: Start: 04-24-2018 Patient encounter procedure Hemalatha Bernal [facility] Work Phone: Start: 04-12-2018 Patient encounter procedure Hemalatha Bernal [facility] Work Phone: Patient encounter status Hemalatha TitoObedsheri Work Phone: [facility] Work Phone: Preoperative state Hemalatha Bernal Work Phone: [facility] Work Phone: Procedures Date Procedure Procedure Detail [...] Activity Detail Author Start: 08-22-2024 Patient referral [facility] Work Phone: Start: 08-23-2021 EPV, Provider: Debo Bernal, Status: Pen, Time: 9:00 AM EPV, Provider: Ladi Bernal, Status: Pen, Time: 9:00 AM [facility] Work Phone: Start: 02-22-2021 EPV, Provider: Debo Bernal, Status: Pen, Time: 9:15 AM EPV, Provider: Ladi Bernal, Status: Pen, Time: 9:15 AM [facility] Work Phone: Start: 12-30-2019 MG Breast screening Mamm - Scr eening Mammogram w/ Tomosynthesis [facility] Work Phone: Patient referral [facility] Work Phone: [facility] Work Phone: NEGATED: Highlighted row has been ruled out! Planned Goals not documented [facility] Work Phone: Immunizations Immunization Date Immunization Notes Care Provider [facility] 02-01-2024 influenza, injectabl e, madin ana canine [...] influenza, seasonal, injectable Hemalatha FrancisRene Work Phone: [facility] Work Phone: Comment on above: Series: 02-18-2021 Moderna COVID-19 Vac cine 100 MCG/0.5ML [facility] Work Phone: [facility] Comment on above: Series: 07-10-2020 Covid (Moderna) Dr. Keshia zhu MD Work Phone: [facility] 07-07-2020 Moderna COVID-19 Vac cine 100 MCG/0.5ML Intramuscular Suspension Hemalatha Tito-Bressi Work Phone: [facility] Work Phone: Comment on above: Series: 06-09-2020 Moderna COVID-19 Vac cine 100 MCG/0.5ML Intramuscular Suspension Hemalatha Tito-Bressi Work Phone: [facility] Comment on above: Series: 05-11-1998 hepatitis B vaccine, adult dosage [facility] Work [facility]: [facility] Payers Date Payer Category Payer Unknown [id number] 2023 Self-pay 2023 Unknown [id number] 1970 Unknown [id number] 1970 Unknown [id number] ..[id number] 1971 Unknown [id number] ..[id number] Unknown [facility] Unknown [id number] Unknown [id number] Unknown [id number] ..[id number] Unknown [id number] 2..[id number] Unknown [id number] 2.0.1.823907.3.579.2.462 Unknown [id number] .0.1.103089.3.579.2.462 Unknown [id number] 2.16.840.1.629881.3.579.2.462 Unknown [id number] 2.16.840.1.996138.3.579.2.462 Unknown [id number] 2.16.840.1.049449.3.579.2.462 Unknown [id number] 2.16.840.1.769370.3.579.2.462 Unknown [id number] 2.16.840.1.400425.3.579.2.462 Unknown [id number] 2.16.840.1.752781.3.579.2.462 Unknown [id number] 2.16.840.1.064021.3.579.2.462 Unknown [id number] 2.16.840.1.118538.3.579.2.462 Unknown [id number] 2.16.840.1.603112.3.579.2.462 Unknown [id number] 2.16.840.1.022766.3.579.2.462 Unknown [id number] 2.16.840.1.054710.3.579.2.462 Unknown [id number] 2.16.840.1.671180.3.579.2.462 Unknown [id number] 2.16.840.1.574028.3.579.2.462 Unknown [id number] 2.16.840.1.606961.3.579.2.462 Unknown [id number] 2.16.840.1.645668.3.579.2.462 Unknown [id number] 2.16.840.1.565518.3.579.2.462 Unknown [id number] 2.16.840.1.793550.3.579.2.462 Social History Date Type Detail Facility Minimum alcohol consumption Minimum alcohol consumption [facility] Work Phone: Start: 08-25-2023 End: 08-22-2024 Tobacco smoking status NHIS Never smoked tobacco (finding) [facility] Start: 1970 Sex Assigned At Female [facility] NEGATED: Highlighted row - - [facility] Work Phone: Functional Status Date Assessment Result Facility NEGATED: Highlighted row Functional performance Functional status health issues are not documented Disease [facility] Work Phone: Mental Status Date Assessment Result Facility NEGATED: Highlighted row Cognitive function [Interpretation] Cognitive status health issues are not documented Disease [facility] Work Phone: Progress note 08-31-2024 Note Date & Type Note Facility 08-31-2024 Progress note [facility] Progress note 08-31-2024 Note Date & Type Note Facility 08-31-2024 Progress note Note Date/Time August 31, 2024 1:24 pm [facility] H ealt System [facility] [address] [place] [address]. [address] [place] [address] OFFICE VISIT Date of Service: 08/31/24 MR#: [id number] Acct: [id number] Name: MAREN JOHANSEN Rep #: [id number] : 1970 Provider: Dr. 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 The patient will now be monitored through the [facility]. Her battery life expectancy is [...] citrate, MiraLAX Dulcolax Grecia Gaytan M.D. Pager: [phone] [facility] [address] [place] [address], [facility], [address] [place] [address] Office: [phone] Coding Level of Care Code Off vis,new,level 3 Diagnoses Constipation K59.00 Encounter for screening for malignant neoplasm of colon Z12.11 Presence of permanent cardiac pacemaker Z95.0 08/31/24 1324 <Electronically signed by Grecia Prieto am, MD> Date _ Grecia Gaytan MD Cosigner Signature: Date (if applicable) CC: Dr. Keshia Nettles MD ~ [facility] Work Phone: Evaluation note 07-12-2024 Note Date [...] 39.9 noneactive August 22, 2024 7 :54am [facility] Work Phone: Evaluation note 07-12-2024 Note Date [...] permanent cardiac pacemaker acute August 31 12:50pm [facility] Work Phone: Evaluation note 05-02-2024 Note Date [...] 39.9 noneactive August 22, 2024 7 :54am [facility] Work Phone: History of Present illness Narrative Note Date & Type Note Facility History of Present illness Narrative The patient presents for med refills.She is doing well on paroxetine 20 mg 1 tab daily. 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 Work Phone: Reason for referral (narrative) Note [...] section and content) DATE CREATED AUTHOR 04/14/2020 [facility] DATE CREATED AUTHOR AUTHOR'S ORGANIZ ATION 08/01/2020 [facility] DATE CREATED AUTHOR AUTHOR'S ORGANIZ ATION 02/23/2021 [facility] DATE CREATED AUTHOR AUTHOR'S ORGANIZ ATION 04/19/2022 [facility] DATE CREATED AUTHOR AUTHOR'S ORGANIZ ATION 09/10/2024 Victor[facility] y [facility] Teams (unrecognized sec tion and content) [...] BE BASED ON THE PRIMARY CLINICAL RECORDS. [facility] [employer] [facility]. provides no warranty or guarantee of the accuracy or completeness of information in this document.
[2024-09-12] MEDS: Lactated Ringers 1,000 ML 15 ML IV (06:42)
--- NOTE | 2024-09-12 06:53 | PRE.ANES_ITS ---
ASA Classification* ASA Classification ASA Classification: 2 Assessment & Plan Anesthesia* Anesthesia Assessment Anesthesia Assessment: Discussed sedation and/or anesthesia options, risks, benefits, and alternatives with patient/parents/legal guardian/POA. Questions invited. The patient/parents/legal guardian/POA seems to understand and agrees to proceed with anesthesia plan. Reviewed the physical assessment, medical history, allergy history and patient home medications list prior to surgery/procedure/anesthetic and documented any changes. Performed airway and anesthesia risk assessments. Anesthesia Type Anesthesia Type: MAC History Source History Obtained from:: Patient and Chart Anesthesia Focused Assessment* Temperature: 97.3 F Pulse Rate: 95 Blood Pressure: 101/70 Respiratory Rate: 18 Pulse Ox: 99 Oxygen Delivery Method: Room Air Airway Assessment Mouth opens: >3 cm Mallampati Score: III Teeth Condition: Intact Neck Range of motion (ROM): Full ROM Labs Anesthesia Preop lab: CBC WBC 5.0 K/mm3 (4.4-11.0) 08/27/23 08:24 08/27/23 RBC 4.82 M/mm3 (4.2-5.4) 08/27/23 08:24 08/27/23 Hgb 14.1 g/dL (12.0-15.0) 08/27/23 08:24 08/27/23 Hct 43.0 % (37-47) 08/27/23 08:24 08/27/23 Plt Count 292 K/mm3 (150-450) 08/27/23 08:24 08/27/23 CHEMISTRY Potassium 3.6 mmol/L (3.5-5.1) 02/01/24 09:00 02/01/24 Sodium 138 mmol/L (136-145) 02/01/24 09:00 02/01/24 BUN 12 mg/dL (7-18) 02/01/24 09:00 02/01/24 Creatinine 0.78 mg/dL (0.55-1.02) 02/01/24 09:00 02/01/24 Glucose 90 mg/dL (74-106) 02/01/24 09:00 02/01/24 TSH 2.38 uIU/mL (0.358-3.74) 08/27/23 08:24 COAG Pre-Assessment Diagnosis/Proposed Procedure Planned Operative Procedure(s): CSCOPE Anesthesia History 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 When Was Last Pacemaker Check QUESTION #4 FULL TEXT: You/Your Family Experience fever (hyperthermia) with Anesthesia Last Oral Intake Last Oral intake: Last Oral Intake NPO since 00:00 09/12/24 06:35 Meds taken in AM with sips of water? 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 Female Yes 09/09/24 09:23 HX of Motion Sickness Yes 09/09/24 09:23 HX of N/V After Surgery No 09/09/24 09:23 Non-Smoker Yes 09/09/24 09:23 Duration of Surgery greater No 09/09/24 09:23 than 60 minutes Number of Risk Factors 3 09/09/24 09:23 PONV Score Moderate Risk 09/09/24 09:23 Height & Weight Height & Weight: Anesthesia: Height & Weight Height 5 ft 2 in 09/12/24 06:35 Weight: 66 kg 09/12/24 06:35 Body Mass Index (BMI) 26.6 09/12/24 06:35 Respiratory Assessment Respiratory Assessment - stapling machine operator: Respiratory Tract Infection Hx - 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 Has anyone observed you stop No 09/09/24 09:23 breathing during sleep? STOP Results Negative 09/09/24 09:23 QUESTION #5 FULL TEXT : Do you snore loudly (louder than talking or can be heard through closed doors)? 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 Specify any problems Hx of Preganancy in last 3 No 09/09/24 09:23 Months Nurse Filling Out Transfusion DSCHRIBER 09/09/24 09:23 & Questions: Date: 09/09/24 09/09/24 09:23 Time: 09/09/24 09:23 Patient unable to answer at this time (ie. confused, unrespo /Reproduction History /Reproductive History - stapling machine operator: /Reproductive Hx- stapling machine operator Hx Now No 09/09/24 09:23 Gestational Age (in weeks): EDC: Hx Hx Para Hx Section SAB No 09/09/24 09:23 Active Medications Active Medications: Current Medications Generic Name Dose Route Start Last Admin Trade Name Freq PRN Reason Stop Dose Admin Lactated Ringer's 1,000 mls @ 15 mls/hr 09/12/24 06:30 09/12/24 06:42 IV 15 mls/hr .Q48H FARAZ Administration PFSH Medical History Wears glasses Non-smoker History of echocardiogram Cardiology follow-up encounter Anxiety Presence of permanent cardiac pacemaker SSS (sick sinus syndrome) Third degree heart block Obesity Hypothyroid Dysfunctional uterine bleeding Depression Home Medications ?Medication ?Instructions ?Recorded ?Last Taken ?Type multivitamin 1 tab PO QDAY 05/02/2409/06 History paroxetine HCl 30 mg tablet 30 mg PO QHS 09/09/2408/15 History tirzepatide (weight loss) 7.5 7.5 mg subcut WE 5 08/31/24 History mg/0.5 mL subcutaneous pen injector Allergy/AdvReac Type Severity Reaction Status Date / Time No Known Allergies Allergy Verified 09/12/24 06:34 Family History Mother Breast cancer Hypertension Father Dementia Brother Diabetes type 1 Surgical History (Updated 09/12/24 @ 06:[address] 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
--- NOTE | 2024-09-12 06:53 | PRE.ANES_ITS ---
ASA Classification* ASA Classification ASA Classification: 2 Assessment & Plan Anesthesia* Anesthesia Assessment Anesthesia Assessment: Discussed sedation and/or anesthesia options, risks, benefits, and alternatives with patient/parents/legal guardian/POA. Questions invited. The patient/parents/legal guardian/POA seems to understand and agrees to proceed with anesthesia plan. Reviewed the physical assessment, medical history, allergy history and patient home medications list prior to surgery/procedure/anesthetic and documented any changes. Performed airway and anesthesia risk assessments. Anesthesia Type Anesthesia Type: MAC History Source History Obtained from:: Patient and Chart Anesthesia Focused Assessment* Temperature: 97.3 F Pulse Rate: 95 Blood Pressure: 101/70 Respiratory Rate: 18 Pulse Ox: 99 Oxygen Delivery Method: Room Air Airway Assessment Mouth opens: >3 cm Mallampati Score: III Teeth Condition: Intact Neck Range of motion (ROM): Full ROM Labs Anesthesia Preop lab: CBC WBC 5.0 K/mm3 (4.4-11.0) 08/27/23 08:24 08/27/23 RBC 4.82 M/mm3 (4.2-5.4) 08/27/23 08:24 08/27/23 Hgb 14.1 g/dL (12.0-15.0) 08/27/23 08:24 08/27/23 Hct 43.0 % (37-47) 08/27/23 08:24 08/27/23 Plt Count 292 K/mm3 (150-450) 08/27/23 08:24 08/27/23 CHEMISTRY Potassium 3.6 mmol/L (3.5-5.1) 02/01/24 09:00 02/01/24 Sodium 138 mmol/L (136-145) 02/01/24 09:00 02/01/24 BUN 12 mg/dL (7-18) 02/01/24 09:00 02/01/24 Creatinine 0.78 mg/dL (0.55-1.02) 02/01/24 09:00 02/01/24 Glucose 90 mg/dL (74-106) 02/01/24 09:00 02/01/24 TSH 2.38 uIU/mL (0.358-3.74) 08/27/23 08:24 COAG Pre-Assessment Diagnosis/Proposed Procedure Planned Operative Procedure(s): CSCOPE Anesthesia History 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 When Was Last Pacemaker Check QUESTION #4 FULL TEXT: You/Your Family Experience fever (hyperthermia) with Anesthesia Last Oral Intake Last Oral intake: Last Oral Intake NPO since 00:00 09/12/24 06:35 Meds taken in AM with sips of water? 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 Female Yes 09/09/24 09:23 HX of Motion Sickness Yes 09/09/24 09:23 HX of N/V After Surgery No 09/09/24 09:23 Non-Smoker Yes 09/09/24 09:23 Duration of Surgery greater No 09/09/24 09:23 than 60 minutes Number of Risk Factors 3 09/09/24 09:23 PONV Score Moderate Risk 09/09/24 09:23 Height & Weight Height & Weight: Anesthesia: Height & Weight Height 5 ft 2 in 09/12/24 06:35 Weight: 66 kg 09/12/24 06:35 Body Mass Index (BMI) 26.6 09/12/24 06:35 Respiratory Assessment Respiratory Assessment - aircraft maintenance manager: Respiratory Tract Infection Hx - aircraft maintenance manager Hx Respiratory Tract Infection No 09/09/24 09:23 STOP Sleep Apnea STOP Sleep Apnea - aircraft maintenance manager: STOP Sleep Apnea - aircraft maintenance manager Hx Hypertension No 09/09/24 09:23 Hx Sleep Apnea No 09/09/24 09:23 CPAP BIPAP Do you snore loudly (louder No 09/09/24 09:23 than talking or can be heard Do you often feel tired/ No 09/09/24 09:23 fatigued/ sleepy during daytime? Has anyone observed you stop No 09/09/24 09:23 breathing during sleep? STOP Results Negative 09/09/24 09:23 QUESTION #5 FULL TEXT : Do you snore loudly (louder than talking or can be heard through closed doors)? 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 maintenance manager: Tobacco Use History - aircraft maintenance manager Tobacco Use Smoking Status Never smoker 09/09/24 09:23 Hx Tobacco Use No 09/09/24 09:23 Years Smoking Packs Smoked per Day Smoking Cessation Date was within the last 15 years Hx Smoking Cessation Date Hx Smoking Cessation Counseling Hematologic Medial History Hematologic Hx - aircraft maintenance manager: Hematologic Medical Hx - co founder Hx of Blood Transfusion No 09/09/24 09:23 Hx of Transfusion in last 3 No 09/09/24 09:23 Months Date of Last Transfusion (if within last 3 months) Ever experience any problems No 09/09/24 09:23 with transfusion(s)? Specify any problems Hx of Preganancy in last 3 No 09/09/24 09:23 Months Nurse Filling Out Transfusion DSCHRIBER 09/09/24 09:23 & Questions: Date: 09/09/24 09/09/24 09:23 Time: 09/09/24 09:23 Patient unable to answer at this time (ie. confused, unrespo /Reproduction History /Reproductive History - aircraft maintenance manager: /Reproductive Hx- aircraft maintenance manager Hx Now No 09/09/24 09:23 Gestational Age (in weeks): EDC: Hx Hx Para Hx Section SAB No 09/09/24 09:23 Active Medications Active Medications: Current Medications Generic Name Dose Route Start Last Admin Trade Name Freq PRN Reason Stop Dose Admin Lactated Ringer's 1,000 mls @ 15 mls/hr 09/12/24 06:30 09/12/24 06:42 IV 15 mls/hr .Q48H FARAZ Administration PFSH Medical History Wears glasses Non-smoker History of echocardiogram Cardiology follow-up encounter Anxiety Presence of permanent cardiac pacemaker SSS (sick sinus syndrome) Third degree heart block Obesity Hypothyroid Dysfunctional uterine bleeding Depression Home Medications ?Medication ?Instructions ?Recorded ?Last Taken ?Type multivitamin 1 tab PO QDAY 05/02/2409/06 History paroxetine HCl 30 mg tablet 30 mg PO QHS 09/09/2408/15 History tirzepatide (weight loss) 7.5 7.5 mg subcut WE 5 08/31/24 History mg/0.5 mL subcutaneous pen injector Allergy/AdvReac Type Severity Reaction Status Date / Time No Known Allergies Allergy Verified 09/12/24 06:34 Family History Mother Breast cancer Hypertension Father Dementia Brother Diabetes type 1 Surgical History (Updated 09/12/24 @ 06:[address] 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
--- NOTE | 2024-09-12 07:11 | HP.PCM_ITS ---
History and Physical Date of Admission: 09/12/24 Date of Service: 08/31/24 MR#: [id number] Acct: [id number] Name: ANANYA LEE Rep #: [id number] : 1970 Provider: Dr. Grecia Gaytan MD Age/Sex: 54/F Location: [facility] Status: Signed Intake Vital Signs 08/23/2507:00 08/31/2512:02 Height 5 ft 2 in 5 ft 2 in Weight: 151 lb 148 lb BMI 27.6 27.1 BP 112/70 105/74 Blood Pressure Location Lt brachial Rt brachial Position Sitting Sitting Respiration 16 17 Pulse 85 86 Pulse Source Monitor Monitor Temp 97.9 F Temp Source Temporal Pulse Oximetry (%) 97 98 Oxygen Delivery Method room air room air Intake Visit Reasons: COLONOSCOPY Chief Complaint: colonoscopy Is patient in pain?: No Allergies No Known Allergies Allergy (Unverified 08/31/24 13:02) Medications ?Medication ?Instructions ?Recorded ?Confirmed ?Type multivitamin 1 tab PO QDAY 05/02/24 08/31/24 History paroxetine HCl 30 mg tablet 30 mg PO DAILY #90 tabs 08/22/24 5 Rx tirzepatide (weight loss) 7.5 7.5 mg (0.5 mL) subcut QWEEK #2 mL 08/2208/31/24 Rx mg/0.5 mL subcutaneous pen injector [facility] Medical History Anxiety Acute diastolic CHF (congestive heart failure) Presence of permanent cardiac pacemaker SSS (sick sinus syndrome) Third degree heart block Obesity Hypothyroid Dysfunctional uterine bleeding Depression Anemia Surgical History History of permanent cardiac pacemaker placement History of hysterectomy Family History Mother Breast cancer HypertensionFather DementiaBrother Diabetes type 1 Social History adopted: No household members: spouse number of children: 2 current occupational status: employed 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 Patient states she has bowel movements maybe once a week. Patient states she has started to increase her fiber with supplement 2 capsules. Patient states her stools are hard denies any blood. Patient denies any family history of colon cancer. Patient denies any abdominal pain/nausea/vomiting/reflux. Patient does have a permanent pacemaker in place. ROS General General: Yes weight change; No appetite, fatigue, colon cancer or breast cancer Additional Details: wt loss, is on Zepbound HEENT HEENT: No difficulty swallowing, eye injury, eye surgery, swollen glands or hoarseness Endo Endocrine: No thyroid disease, diabetes mellitus, thyroid cancer, Hair loss, heat intolerance or cold intolerance Skin Skin: No rash or changing moles Musc Musculoskeletal: No back problems, arthritis, rheumatoid arthritis, gout or joint pain Cardio Cardiovascular: Yes pacemaker; No murmur, heart disease, atrial fibrillation, high blood pressure, heart attack, heart stent, palpitations, shortness of breath with exertion or chest pain Psych Psychiatric: No depression, anxiety or hearing voices Resp Respiratory: No shortness of breath, No sleep apnea, No cough, No COPD, No asthma, No emphysema and No wheezing Gastro Gastrointestinal: No abdominal pain, No nausea or vomiting, No diarrhea, Yes constipation, No blood in stool, No acid reflux, Yes hemorrhoids, No ulcers, No gallbladder problem and No black,tarry stools [place] Hematologic: No blood thinners, No blood disorders, No bleeding, No anemia and No blood clots Neuro Neurologic: No numbness and No tingling Exam Const General: cooperative, healthy appearing, comfortable and no acute distress [facility] Head: normocephalic and atraumatic Neck Neck: supple Resp Effort & Inspection: normal respiratory effort Cardio Rate: regular rate GI Inspection: non-distended Palpation: soft and nontender Skin General: no rashes or lesions noted Neuro General: CN's II-XI intact bilaterally Extrem General: normal to inspection Psych Mental Status: mental status grossly normal Attitude: cooperative Assessment and Plan Assessment and Plan (1) Constipation: Status: Acute (2) Encounter for screening for malignant neoplasm of colon: Status: Acute (3) Presence of permanent cardiac pacemaker: Status: Acute Comment: 10/27/2018 this was done at [facility]. The patient will now be monitored through the [facility]. Her battery life expectancy is 5.4 years as of today. She is totally pacer dependent with complete heart block and today showed an escape rhythm at 40 bpm. She is tracking her atrial rate and is totally ventricular paced at 72 beats per minute on today's EKG. The patient is asymptomatic. Plan I have discussed the above with the patient. I have offered the patient colonoscopy for evaluation. I have explained the risks/benefits of the procedure and described the procedure. I have discussed the risks with the patient, including but not limited to: infection, bleeding, perforation of the GI tract requiring emergency surgery, inability to complete the procedure, injury to any internal organs, complications of anesthesia, etc. - the patient understands and agrees to proceed. I have answered all the patient's questions to the patient's satisfaction and the patient has no further questions. The patient has been given instructions for the colon cleansing preparation. 2 days of clears magnesium citrate, MiraLAX Dulcolax Grecia Gaytan M.D. Pager: [phone] [facility] [address] [place] [address], [address] [place] [address] Office: [phone] Coding Level of Care Code Off vis,new,level 3 Diagnoses Constipation K59.00 Encounter for screening for malignant neoplasm of colon Z12.11 Presence of permanent cardiac pacemaker Z95.0 08/31/24 1324 <Electronically signed by Grecia Gaytan MD> Date Grecia Gaytan MD
--- NOTE | 2024-09-12 07:11 | HP.PCM_ITS ---
History and Physical Date of Admission: 09/12/24 Date of Service: 08/31/24 MR#: [id number] Acct: [id number] Name: ANANYA LEE Rep #: [id number] : 1970 Provider: Dr. Grecia Gaytan MD Age/Sex: 54/F Location: [facility] Status: Signed Intake Vital Signs 08/23/2507:00 08/31/2512:02 Height 5 ft 2 in 5 ft 2 in Weight: 151 lb 148 lb BMI 27.6 27.1 BP 112/70 105/74 Blood Pressure Location Lt brachial Rt brachial Position Sitting Sitting Respiration 16 17 Pulse 85 86 Pulse Source Monitor Monitor Temp 97.9 F Temp Source Temporal Pulse Oximetry (%) 97 98 Oxygen Delivery Method room air room air Intake Visit Reasons: COLONOSCOPY Chief Complaint: colonoscopy Is patient in pain?: No Allergies No Known Allergies Allergy (Unverified 08/31/24 13:02) Medications ?Medication ?Instructions ?Recorded ?Confirmed ?Type multivitamin 1 tab PO QDAY 05/02/24 08/31/24 History paroxetine HCl 30 mg tablet 30 mg PO DAILY #90 tabs 08/22/24 5 Rx tirzepatide (weight loss) 7.5 7.5 mg (0.5 mL) subcut QWEEK #2 mL 08/2208/31/24 Rx mg/0.5 mL subcutaneous pen injector [facility] Medical History Anxiety Acute diastolic CHF (congestive heart failure) Presence of permanent cardiac pacemaker SSS (sick sinus syndrome) Third degree heart block Obesity Hypothyroid Dysfunctional uterine bleeding Depression Anemia Surgical History History of permanent cardiac pacemaker placement History of hysterectomy Family History Mother Breast cancer HypertensionFather DementiaBrother Diabetes type 1 Social History adopted: No household members: spouse number of children: 2 current occupational status: employed 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 Patient states she has bowel movements maybe once a week. Patient states she has started to increase her fiber with supplement 2 capsules. Patient states her stools are hard denies any blood. Patient denies any family history of colon cancer. Patient denies any abdominal pain/nausea/vomiting/reflux. Patient does have a permanent pacemaker in place. ROS General General: Yes weight change; No appetite, fatigue, colon cancer or breast cancer Additional Details: wt loss, is on Zepbound HEENT HEENT: No difficulty swallowing, eye injury, eye surgery, swollen glands or hoarseness Endo Endocrine: No thyroid disease, diabetes mellitus, thyroid cancer, Hair loss, heat intolerance or cold intolerance Skin Skin: No rash or changing moles Musc Musculoskeletal: No back problems, arthritis, rheumatoid arthritis, gout or joint pain Cardio Cardiovascular: Yes pacemaker; No murmur, heart disease, atrial fibrillation, high blood pressure, heart attack, heart stent, palpitations, shortness of breath with exertion or chest pain Psych Psychiatric: No depression, anxiety or hearing voices Resp Respiratory: No shortness of breath, No sleep apnea, No cough, No COPD, No asthma, No emphysema and No wheezing Gastro Gastrointestinal: No abdominal pain, No nausea or vomiting, No diarrhea, Yes constipation, No blood in stool, No acid reflux, Yes hemorrhoids, No ulcers, No gallbladder problem and No black,tarry stools Casa Hematologic: No blood thinners, No blood disorders, No bleeding, No anemia and No blood clots Neuro Neurologic: No numbness and No tingling Exam Const General: cooperative, healthy appearing, comfortable and no acute distress [facility] Head: normocephalic and atraumatic Neck Neck: supple Resp Effort & Inspection: normal respiratory effort Cardio Rate: regular rate GI Inspection: non-distended Palpation: soft and nontender Skin General: no rashes or lesions noted Neuro General: CN's II-XI intact bilaterally Extrem General: normal to inspection Psych Mental Status: mental status grossly normal Attitude: cooperative Assessment and Plan Assessment and Plan (1) Constipation: Status: Acute (2) Encounter for screening for malignant neoplasm of colon: Status: Acute (3) Presence of permanent cardiac pacemaker: Status: Acute Comment: 10/27/2018 this was done at [facility]. The patient will now be monitored through the [facility]. Her battery life expectancy is 5.4 years as of today. She is totally pacer dependent with complete heart block and today showed an escape rhythm at 40 bpm. She is tracking her atrial rate and is totally ventricular paced at 72 beats per minute on today's EKG. The patient is asymptomatic. Plan I have discussed the above with the patient. I have offered the patient colonoscopy for evaluation. I have explained the risks/benefits of the procedure and described the procedure. I have discussed the risks with the patient, including but not limited to: infection, bleeding, perforation of the GI tract requiring emergency surgery, inability to complete the procedure, injury to any internal organs, complications of anesthesia, etc. - the patient understands and agrees to proceed. I have answered all the patient's questions to the patient's satisfaction and the patient has no further questions. The patient has been given instructions for the colon cleansing preparation. 2 days of clears magnesium citrate, MiraLAX Dulcolax Grecia Gaytan M.D. Pager: [phone] [facility] [address] [place] [address], [address] [place] [address] Office: [phone] Coding Level of Care Code Off vis,new,level 3 Diagnoses Constipation K59.00 Encounter for screening for malignant neoplasm of colon Z12.11 Presence of permanent cardiac pacemaker Z95.0 08/31/24 1324 <Electronically signed by Grecia Gaytan MD> Date Grecia Gaytan MD
--- NOTE | 2024-09-12 07:59 | PCM.POST.ANE ---
Anesthesia: Postop Eval I Current Vital Signs Temperature: 99.6 F Pulse Rate: 82 Blood Pressure: 85/53 Respiratory Rate: 20 Pulse Ox: 99 Oxygen Delivery Method: Room Air Assessment Airway patent: Yes Spontaneous unlabored respirations: Yes Mental status: Awake and Calm nausea: No Vomiting: No Anesthesia Complication: No Fluid Hydration Crystalloid volume administer (ml): 200 Total IV fluid infused: 200 Progress Note Anesthesia document: Postop Eval 1 completed: Yes
--- NOTE | 2024-09-12 08:01 | OP.CCLET_ITS ---
09/12/2024 Keshia Nettles Md Re : Colonoscopy procedure for Maren Johansen Dear Tho This procedure was performed on Thursday, September 12, 2024. My impressions and recommendations are as follows: Impressions : - Hemorrhoids found on perianal exam. - Non-bleeding external and internal hemorrhoids. - The entire examined colon is normal. - No specimens collected. Recommendations : - Discharge patient to home. - Resume previous diet. - Continue present medications. - Repeat colonoscopy in 10 years for screening purposes. My findings are described in the full procedure note, which is enclosed. If I can be of further assistance, please feel free to contact me at Doctor phone number(s): , Work: . Sincerely, MD Grecia Wright MD 09/12/2024 8:01:14 AM This report has been signed electronically.
--- NOTE | 2024-09-12 08:01 | OP.COLON_ITS ---
Patient Name: Maren Johansen Procedure Date: 09/12/2024 6:47 AM Date of : 1970 Age: 54 Procedure: Colonoscopy Indications: Screening for colorectal malignant neoplasm Providers: Grecia Gaytan MD Referring MD: Keshia Nettles Md Medicines: Monitored Anesthesia Care Patient Profile: This is a 54 year old female. Last Colonoscopy: none. The patient's first colonoscopy is today. Complications: No immediate complications. Procedure: Pre-Anesthesia Assessment: - Prior to the procedure, a History and Physical was performed, and patient medications and allergies were reviewed. The patient's tolerance of previous anesthesia was also reviewed. The risks and benefits of the procedure and the sedation options and risks were discussed with the patient. All questions were answered, and informed consent was obtained. Prior Anticoagulants: The patient has taken no anticoagulant or antiplatelet agents. ASA Grade Assessment: Per anesthesia. After reviewing the risks and benefits, the patient was deemed in satisfactory condition to undergo the procedure. After I obtained informed consent, the scope was passed under direct vision. Throughout the procedure, the patient's blood pressure, pulse, and oxygen saturations were monitored continuously. The pediatric colonoscope was introduced through the anus and advanced to the cecum, identified by the appendiceal orifice, ileocecal valve and palpation. The colonoscopy was performed without difficulty. The patient tolerated the procedure well. The quality of the bowel preparation was good. Scope In: 7:33:01 AM Scope Withdrawal Time 0 hours 9 minutes 12 seconds Scope Out: 7:52:28 AM Total Procedure Duration Time 0 hours 19 minutes 27 seconds Findings: Hemorrhoids were found on perianal exam. Non-bleeding external and internal hemorrhoids were found. The hemorrhoids were small and Grade I (internal hemorrhoids that do not prolapse). The entire examined colon appeared normal. Impression: - Hemorrhoids found on perianal exam. - Non-bleeding external and internal hemorrhoids. - The entire examined colon is normal. - No specimens collected. Recommendation: - Discharge patient to home. - Resume previous diet. - Continue present medications. - Repeat colonoscopy in 10 years for screening purposes. Procedure Code(s): --- Professional --- G0121, PT, Colorectal cancer screening; colonoscopy on individual not meeting criteria for high risk Diagnosis Code(s): --- Professional --- Z12.11, Encounter for screening for malignant neoplasm of colon K64.0, First degree hemorrhoids CPT copyright 2021 [employer]. All rights reserved. The codes documented in this report are preliminary and upon cad manager review may be revised to meet current compliance requirements. MD Grecia Wright MD 09/12/2024 8:01:14 AM This report has been signed electronically. Number of Addenda: 0 Note Initiated On: 09/12/2024 6:47 AM
--- NOTE | 2024-09-12 08:01 | OP.COLON_ITS ---
Patient Name: Maren Johansen Procedure Date: 09/12/2024 6:47 AM Date of : 1970 Age: 54 Procedure: Colonoscopy Indications: Screening for colorectal malignant neoplasm Providers: Grecia Gaytan MD Referring MD: Keshia Nettles Md Medicines: Monitored Anesthesia Care Patient Profile: This is a 54 year old female. Last Colonoscopy: none. The patient's first colonoscopy is today. Complications: No immediate complications. Procedure: Pre-Anesthesia Assessment: - Prior to the procedure, a History and Physical was performed, and patient medications and allergies were reviewed. The patient's tolerance of previous anesthesia was also reviewed. The risks and benefits of the procedure and the sedation options and risks were discussed with the patient. All questions were answered, and informed consent was obtained. Prior Anticoagulants: The patient has taken no anticoagulant or antiplatelet agents. ASA Grade Assessment: Per anesthesia. After reviewing the risks and benefits, the patient was deemed in satisfactory condition to undergo the procedure. After I obtained informed consent, the scope was passed under direct vision. Throughout the procedure, the patient's blood pressure, pulse, and oxygen saturations were monitored continuously. The pediatric colonoscope was introduced through the anus and advanced to the cecum, identified by the appendiceal orifice, ileocecal valve and palpation. The colonoscopy was performed without difficulty. The patient tolerated the procedure well. The quality of the bowel preparation was good. Scope In: 7:33:01 AM Scope Withdrawal Time 0 hours 9 minutes 12 seconds Scope Out: 7:52:28 AM Total Procedure Duration Time 0 hours 19 minutes 27 seconds Findings: Hemorrhoids were found on perianal exam. Non-bleeding external and internal hemorrhoids were found. The hemorrhoids were small and Grade I (internal hemorrhoids that do not prolapse). The entire examined colon appeared normal. Impression: - Hemorrhoids found on perianal exam. - Non-bleeding external and internal hemorrhoids. - The entire examined colon is normal. - No specimens collected. Recommendation: - Discharge patient to home. - Resume previous diet. - Continue present medications. - Repeat colonoscopy in 10 years for screening purposes. Procedure Code(s): --- Professional --- G0121, PT, Colorectal cancer screening; colonoscopy on individual not meeting criteria for high risk Diagnosis Code(s): --- Professional --- Z12.11, Encounter for screening for malignant neoplasm of colon K64.0, First degree hemorrhoids CPT copyright 2021 [employer]. All rights reserved. The codes documented in this report are preliminary and upon warehouse general laborer review may be revised to meet current compliance requirements. MD Grecia Wright MD 09/12/2024 8:01:14 AM This report has been signed electronically. Number of Addenda: 0 Note Initiated On: 09/12/2024 6:47 AM
--- NOTE | 2024-09-12 08:01 | OP.CCLET_ITS ---
09/12/2024 Keshia Nettles Md Re : Colonoscopy procedure for Maren Johansen Dear Tho This procedure was performed on Thursday, September 12, 2024. My impressions and recommendations are as follows: Impressions : - Hemorrhoids found on perianal exam. - Non-bleeding external and internal hemorrhoids. - The entire examined colon is normal. - No specimens collected. Recommendations : - Discharge patient to home. - Resume previous diet. - Continue present medications. - Repeat colonoscopy in 10 years for screening purposes. My findings are described in the full procedure note, which is enclosed. If I can be of further assistance, please feel free to contact me at Doctor phone number(s): , Work: . Sincerely, MD Grecia Wright MD 09/12/2024 8:01:14 AM This report has been signed electronically.
--- NOTE | 2024-09-12 10:43 | POSTOPAN2_ITS ---
Anesthesia Postop Eval I Sum Postop Eval Completion status Anesthesia document: Postop Eval 1 completed: Yes Anesthesia Postop Eval I Summary Anesthesia Postop Eval I Summary: Anesthesia Postop Eval I: Assessment Summary Airway patent Yes 09/12/24 08:00 [email or web address] Spontaneous unlabored Yes 09/12/24 08:00 [email or web address] respirations Mental status Awake,Calm 09/12/24 08:00 [email or web address] nausea No 09/12/24 08:00 WATER [email or web address] Vomiting No 09/12/24 08:00 [email or web address] Anesthesia Postop Eval I: Fluid Summary Crystalloid volume administer 200 09/12/24 08:00 [email or web address] (ml) Colloids volume administered ( ml) Blood Product volume administered (ml) Total IV fluid infused 200 09/12/24 08:00 [email or web address] Anesthesia Postop Eval I: Summary Notes Anesthesia Complication No 09/12/24 08:00 [email or web address] Anesthesia Complication Comment: Post-operative progress note Anesthesia: Postop Eval II Evaluation Mental status: Awake Pain Level: 0 nausea: No Vomiting: No
--- NOTE | 2024-09-12 10:43 | POSTOPAN2_ITS ---
Anesthesia Postop Eval I Sum Postop Eval Completion status Anesthesia document: Postop Eval 1 completed: Yes Anesthesia Postop Eval I Summary Anesthesia Postop Eval I Summary: Anesthesia Postop Eval I: Assessment Summary Airway patent Yes 09/12/24 08:00 [email or web address] Spontaneous unlabored Yes 09/12/24 08:00 [email or web address] respirations Mental status Awake,Calm 09/12/24 08:00 [email or web address] nausea No 09/12/24 08:00 [email or web address] Vomiting No 09/12/24 08:00 [email or web address] Anesthesia Postop Eval I: Fluid Summary Crystalloid volume administer 200 09/12/24 08:00 [email or web address] (ml) Colloids volume administered ( ml) Blood Product volume administered (ml) Total IV fluid infused 200 09/12/24 08:00 [email or web address] Anesthesia Postop Eval I: Summary Notes Anesthesia Complication No 09/12/24 08:00 [email or web address] Anesthesia Complication Comment: Post-operative progress note Anesthesia: Postop Eval II Evaluation Mental status: Awake Pain Level: 0 nausea: No Vomiting: No
--- NOTE | 2024-09-12 10:43 | PCM.POSTANE2 ---
Anesthesia Postop Eval I Sum Postop Eval Completion status Anesthesia document: Postop Eval 1 completed: Yes Anesthesia Postop Eval I Summary Anesthesia Postop Eval I Summary: Anesthesia Postop Eval I: Assessment Summary Airway patent Yes 09/12/24 08:00 [email or web address] Spontaneous unlabored Yes 09/12/24 08:00 RING [email or web address] respirations Mental status Awake,Calm 09/12/24 08:00 [email or web address] nausea No 09/12/24 08:00 RING [email or web address] Vomiting No 09/12/24 08:00 RING [email or web address] Anesthesia Postop Eval I: Fluid Summary Crystalloid volume administer 200 09/12/24 08:00 [email or web address] (ml) Colloids volume administered ( ml) Blood Product volume administered (ml) Total IV fluid infused 200 09/12/24 08:00 [email or web address] [email or web address] Anesthesia Postop Eval I: Summary Notes Anesthesia Complication No 09/12/24 08:00 [email or web address] [email or web address] Anesthesia Complication Comment: Post-operative progress note Anesthesia: Postop Eval II Evaluation Mental status: Awake Pain Level: 0 nausea: No Vomiting: No
--- NOTE | 2024-09-12 10:43 | PCM.POSTANE2 ---
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
== END 2024-09-12 08:47 | disposition home or self-care (01) ==
LOC: EN 06:11 → AC 06:13
PROVIDERS: PCP Internal Medicine; Referring Provider Internal Medicine; Visit Provider Surgery
PROC: 0DJD8ZZ Inspection of Lower Intestinal Tract, Via Natural or Artificial Opening Endoscopic (ICD-10-PCS; CPT 45378; principal; 2024-09-12 07:25)
DX: Z12.11 Encounter for screening for malignant neoplasm of colon (principal); I50.31 Acute diastolic (congestive) heart failure; K59.00 Constipation, unspecified; Z95.0 Presence of cardiac pacemaker; Z90.710 Acquired absence of both cervix and uterus; F32.A Depression, unspecified; Z79.899 Other long term (current) drug therapy; K64.0 First degree hemorrhoids; K64.4 Residual hemorrhoidal skin tags
CPT/HCPCS: 45378; J2405

== ENCOUNTER → 2025-01-12 | Outpatient (CLI) | payer BC, SELFPAY ==
[2025-01-12 12:14] LABS: Hematocrit 39.9 % (37-47); Hemoglobin 13.3 g/dL (12.0-15.0); Immature Granulocytes Count 0.010 X10^3/uL (0.0-0.0); Mean Corp Hgb Conc 33.3 g/dL (32-36); Mean Corpuscular Volume 88.7 fL (81-99); Mean Platelet Vol. 9.8 fl (6.2-12.0); NRBC Flagged by Analyzer 0 % (0-5); Platelet Count 247 K/mm3 (150-450); RBC Distribution Width CV 12.4 % (11.6-14.6); RBC Distribution Width SD 40.2 fl (35.1-43.9); Red Blood Count 4.50 M/mm3 (4.2-5.4); White Blood Count 4.3 K/mm3 (4.4-11.0)
[2025-01-12 13:16] LABS: AST(SGOT) 24 U/L (<=31); Alanine Aminotransfer ALT/SGPT 26 U/L (<=34); Albumin, Serum 4.3 g/dL (3.5-5.0); Alkaline Phosphatase 56 U/L (35-104); Anion Gap 9 (5-15); BUN 11 mg/dL (4-19); BUN/Creat Ratio 14.7 RATIO (10-20); Calcium,Total 9.2 mg/dL (7.6-11.0); Carbon Dioxide 26.3 mmol/L (21.0-32.0); Chloride 106 mmol/L (98-108); Cholesterol 164 mg/dL (<=200); Globulin 2.7 g/dL (2.2-4.2); Glucose 87 mg/dL (70-99); Low Density Lipoprotein Calc. 87 mg/dL; Potassium 4.0 mmol/L (3.3-5.1); Triglycerides 89 mg/dL; Very Low Density Lipoprotein 18 mg/dL (5-40); Vitamin D,25 Hydroxy 25.4 ng/mL (30-100); cholesterol:hdl ratio screen 2.69
== END | disposition home or self-care (01) ==
LOC: MFPLAB 11:07
PROVIDERS: PCP Internal Medicine; Visit Provider Internal Medicine
DX: Z95.0 Presence of cardiac pacemaker (principal); I44.2 Atrioventricular block, complete; F32.1 Major depressive disorder, single episode, moderate; E55.9 Vitamin D deficiency, unspecified; F41.9 Anxiety disorder, unspecified
CPT/HCPCS: 36415; 80053; 80061; 82306; 85025